=== PATIENT | male | born 1965 | race Caucasian/White ===

== ENCOUNTER 2019-01-22 20:40 | Inpatient (IN) | payer MEDICARE, OTHER ==
[~2019-01-22] VITALS: Ht 170.2 cm; Wt 160.0 kg
[~2019-01-22 20:40] MED LIST: ASPI-817 PO; BENA20TA4 PO; CARV12.579 PO; FURO-110 PO; GABA400C14 PO; HYDR-762 PO; HYDR25TA6 PO; INSU100V23 SC; LANT3I SC; METF500T24 PO; OXYC15TA PO; POTA20TA8 PO; SIMV40TA3 PO
--- NOTE | 2019-01-22 21:26 | ERD ---
ER Documentation Chief Complaint Chief Complaint R lower leg pain moving up R leg X 1 day HPI Is a 53-year-old male, with a history of COPD, history of CHF, history of diabetes who presents with right foot pain. The patient reports that he has had this pain for a long time, however last week he got worse, and his primary care doctor started him on Cipro for foot ulcer over his calcaneus. He has not improved, and is noted purulent drainage. He has not had a fever. Additionally, he is not on home oxygen, but is not CPAP and has noted that his O2 sats have been lower lately, he presents today with an O2 sat of 89%, he did not endorse any significant shortness of breath. There are no alleviating or aggravating factors. ROS All systems reviewed and are negative except as per history of present illness. Medications Home Meds Reported Medications Carvedilol* (Carvedilol*) 12.5 Mg Tablet, 12.5 MG PO BID, TAB 11/16/14 Simvastatin (Simvastatin) 40 Mg Tablet, 40 MG PO HS, TAB 11/16/14 Insulin Regular, Human* (Novolin R*) 100 U/Ml Vial, 0 SC SLIDING SCALE ACHS, VIAL 11/16/14 Insulin Glargine* (Lantus*) 100 Unit/Ml Soln, 1 UNIT SC HS, EA 11/16/14 Aspirin* (Aspirin* EC) 81 Mg Tablet.dr, 81 MG PO DAILY, TAB 11/16/14 Furosemide* (Lasix*) 20 Mg Tablet, 20 MG PO DAILY, TAB 11/16/14 Benazepril Hcl* (Benazepril Hcl*) 20 Mg Tablet, 20 MG PO DAILY, TAB 11/16/14 Gabapentin* (Gabapentin*) 400 Mg Capsule, 400 MG PO TID, CAP 11/16/14 Metformin Hcl* (Metformin Hcl*) 500 Mg Tablet, 500 MG PO WITH BREAKFAST, TAB 11/16/14 Oxycodone Hcl* (IR) (Oxycodone Hcl*) 15 Mg Tablet, 15 MG PO Q4H PRN for PAIN, TAB 11/16/14 Hydrocodone Bit-Acetaminophen* (Downs*) 10-325 Mg Tablet, 1 TAB PO Q4H PRN for PAIN, TAB 11/16/14 Hydrochlorothiazide* (Hydrochlorothiazide*) 25 Mg Tab, 25 MG PO DAILY, TAB 11/16/14 Potassium Chloride* (Klor-Con*) 10 Meq Tabsr, 10 MEQ PO DAILY, TAB.SA 11/16/14 Allergies Allergies: Coded Allergies: No Known Allergies (Verified Allergy, Unknown, 07/02/17) PMhx/Soc History of Surgery: Yes (HAD KNEE FLUSHED OUT, EAR SX) Anesthesia Reaction: No Hx Neurological Disorder: No Hx Respiratory Disorders: No Hx Cardiac Disorders: Yes (HTN, MINOR HEART FAILURE) Hx Psychiatric Problems: No Hx Miscellaneous Medical Probl: Yes (HIGH CHOLESTEROL) Hx Alcohol Use: No Hx Substance Use: No Hx Tobacco Use: No Smoking Status: Never smoker Physical Exam Vitals Vital Signs Date Temp Pulse Resp B/P (MAP) Pulse Ox O2 O2 Flow FiO2 Time Delivery Rate 01/22/19 76 20 96 Nasal 3.0 23:40 Cannula 01/22/19 3.0 23:40 01/22/19 Nasal 3 22:51 Cannula 01/22/19 97.3 84 22 90/52 (65) 90 21:14 01/22/19 97.3 89 24 89/53 (65) 88 20:49 Physical Exam Const: Alert awake, well-nourished Head: Atraumatic Eyes: Normal Conjunctiva ENT: Normal External Ears, Nose and Mouth. Neck: Full range of motion. No meningismus. Resp: There is bilateral expiratory wheezing, there is no rhonchi Cardio: Regular rate and rhythm, no murmurs Abd: Soft, non tender, non distended. Normal bowel sounds Skin: No petechiae or rashes Back: No midline or flank tenderness Ext: No cyanosis, there is bilateral 1+ pitting edema, there is at least a stage II foot ulcer over his calcaneal area, there is no crepitus Neur: Awake and alert Psych: Normal Mood and Affect Result Diagram: 01/22/19 2215 01/22/19 2216 Results 24 hrs Laboratory Tests Test 01/22/19 21:27 01/22/19 22:15 01/22/19 22:16 Blood Gas Specimen Source Blood arterial Arterial Blood Date 01/22/2019 10:00:02 PM Drawn Arterial Blood Gas VENOUS LINE Puncture Site Jose Antonio Test N/A Venous Blood pH 7.381 Venous Blood pCO2 47.8 mmHG (Temp Corrected) Venous Blood pO2 42.3 mmHG (Temp Corrected) Venous Blood HCO3 27.7 mmol/L Venous Blood Oxygen 78.6 mmHG Saturation Venous Blood Base Excess 2.4 mmol/L Venous Blood Total 6.4 g/dl Hemoglobin Venous Blood 76.2 % Oxyhemoglobin Venous Blood 0.5 % Methemoglobin Blood Gas A-a O2 137.2 mmHg Differential Carboxyhemoglobin 2.5 % Blood Gas Temperature 37.0 C Blood Gas Modality NASAL CANNULA FiO2 33.0 % Blood Gas Critical Value Vidhi MILLER MD Read Back Blood Gas Notified Whom Blood Gas Notified Time 01/22/2019 10:10:41 PM White Blood Count 8.4 10^3/ul Red Blood Count 3.93 10^6/ul Hemoglobin 11.0 g/dl Hematocrit 35.5 % Mean Corpuscular Volume 90.3 fl Mean Corpuscular 28.0 pg Hemoglobin Mean Corpuscular 31.0 g/dl Hemoglobin Concent Red Cell Distribution 16.3 % Width Platelet Count 172 10^3/UL Mean Platelet Volume 12.4 fl Immature Granulocytes % 0.400 % Neutrophils % 63.5 % Lymphocytes % 23.6 % Monocytes % 10.5 % Eosinophils % 1.4 % Basophils % 0.6 % Nucleated Red Blood Cells 0.0 /100WBC % Immature Granulocytes # 0.030 10^3/ul Neutrophils # 5.4 10^3/ul Lymphocytes # 2.0 10^3/ul Monocytes # 0.9 10^3/ul Eosinophils # 0.1 10^3/ul Basophils # 0.1 10^3/ul Nucleated Red Blood Cells 0.0 10^3/ul # Erythrocyte Sedimentation 63 mm/Hr Rate Prothrombin Time 14.3 Sec Prothrombin Time Ratio 1.1 INR International 1.10 Normalized Ratio Activated 34.3 Sec Partial Thromboplast Time Sodium Level 139 mmol/L Potassium Level 4.3 mmol/L Chloride Level 98 mmol/L Carbon Dioxide Level 35 mmol/L Anion Gap 6 Blood Urea Nitrogen 30 mg/dl Creatinine 1.71 mg/dl Est Glomerular Filtrat 42 mL/min Rate mL/min Glucose Level 189 mg/dl Lactic Acid Level 3.2 mmol/L Calcium Level 8.4 mg/dl Total Bilirubin 0.4 mg/dl Direct Bilirubin 0.00 mg/dl Indirect Bilirubin 0.4 mg/dl Aspartate Amino 35 IU/L Transf (AST/SGOT) Alanine 20 IU/L Aminotransferase (ALT/SGP T) Alkaline Phosphatase 79 IU/L Troponin I < 0.012 ng/ml C-Reactive Protein 1.8 mg/dl B-Type Natriuretic 232 PG/ML Peptide Total Protein 7.6 g/dl Albumin 3.6 g/dl Globulin 4.00 g/dl Albumin/Globulin Ratio 0.90 Current Medications Medications Dose Sig/Dc Start Time Status Last (Trade) Ordered Route PRN Stop Time Admin Dose Reason Admin Sodium 1,000 ml BOLUS OVER 2 01/22/19 DC 01/22/19 Chloride HOURS STAT 21:27 22:20 (NS) IV* 01/22/19 21:30 Vancomycin 250 ml @ ONCE STAT 01/22/19 DC 01/22/19 HCl 125 mls/hr IVPB 21:27 22:55 01/22/19 23:26 Piperacillin 100 ml @ ONCE STAT 01/22/19 DC 01/22/19 Sod/ 200 mls/hr IVPB 21:27 22:20 Tazobactam 01/22/19 21:56 Sod Albuterol 5 mg ONCE STAT 01/22/19 DC 01/22/19 (Proventil INH 21:27 21:27 0.083% (Neb)) 01/22/19 21:31 Ipratropium 1.5 mg ONCE STAT 01/22/19 DC 01/22/19 [place] INH 21:27 21:27 (Atrovent 01/22/19 21:31 0.02% (Neb)) 125 mg ONCE STAT 01/22/19 DC 01/22/19 Methylprednis IV 21:27 22:20 olone Sodium 01/22/19 21:31 Succinate (Solu-Medrol) 2 tab ONCE ONCE 01/22/19 DC 01/22/19 Acetaminophen PO 23:00 22:55 / 01/22/19 23:01 Hydrocodone Bitart (Downs (5/325)) Sodium 1,000 ml @ Q10H IV 01/22/19 UNV Chloride 100 mls/hr 23:49 IV Flush 3 ml PER 01/23/19 UNV (NS 3 ml) PROTOCOL IV 00:00 Ondansetron 4 mg Q6H PRN 01/23/19 UNV HCl (Zofran IV 00:00 Inj) NAUSEA/VOMITI NG 650 mg Q6H PRN 01/23/19 UNV Acetaminophen PO .PAIN 1-3 00:00 (Tylenol OR TEMP Tab) Heparin 5,000 unit Q12 SC 01/23/19 UNV Sodium 09:00 (Porcine) (Heparin (5000 Units/1ml)) Albuterol/ 3 ml Q2H RESP 01/23/19 UNV Ipratropium THERAPY PRN 00:00 (Duoneb) HHN SHORTNESS OF BREATH Discontinue ONCE ONCE 01/23/19 UNV Miscellaneous current oral XX 00:00 sulfonylur... 01/23/19 00:01 Information (* Miscellaneous Pharmacy Order) Diagnostic 1 ea 02 XX 01/23/19 UNV Test (Pha) 02:00 (Accu-Chek) Insulin 15 units DAILY@0800 01/23/19 UNV Glargine SC 08:00 (Lantus) ONCE ONCE 01/23/19 UNV Miscellaneous HYPOGLYCEMIA XX 00:00 PROTOCOL 01/23/19 00:01 Information w... (* Miscellaneous Pharmacy Order) Insulin NOVOLOG WITH MEALS 01/23/19 UNV Aspart *MILD* BEDTIME SC 08:00 (Novolog ALGORITHM Insulin Pen) Discontinue ONCE ONCE 01/23/19 UNV Miscellaneous all previ... XX 00:00 01/23/19 00:01 Information (* Miscellaneous Pharmacy Order) Aspirin 81 mg DAILY PO 01/23/19 UNV (Halfprin) 09:00 Gabapentin 400 mg TID PO 01/23/19 UNV (Neurontin) 09:00 40 mg HS PO 01/23/19 UNV Miscellaneous 21:00 Information Oxycodone 15 mg Q4H PRN 01/23/19 UNV HCl PO PAIN 00:00 (Roxicodone) Procedures/MDM 53-year-old male who presents for evaluation of a diabetic foot ulcer. My primary concern is that he has infection of his ulcer, which could be developing into osteomyelitis. He was treated with broad-spectrum antibiotics, cardiomegaly with possible CHF was noted on chest x-ray, thus he did not receive the full 30 cc/kg of fluids, additionally I noted his hypoxia, he was given a breathing treatment. Will also be placed on CPAP for the evening. Sepsis Documentation: Patient's infectious symptoms have not stabilized and the patient is at risk of rapid decompensation. The patient will be admitted for careful hydration, antibiotic therapy, and infectious source control. SEVERE SEPSIS CRITERIA: Infectious source: Diabetic ulcer, possible osteomyelitis End organ damage indicated by: Lactate 3.2 SEPSIS MANAGEMENT Time of recognition of sepsis: [Upon arrival]. Time of recognition of severe sepsis: 2215 Time of recognition of septic shock: [No septic shock at this time]. 3 HOUR BUNDLE Blood cultures x 2 before broad-spectrum antibiotics: [Yes] 30 ml/kg NS bolus [Completed] Initial lactate 3.2 Repeat lactate pending SEPTIC SHOCK ASSESSMENT: [No evidence of septic shock CRITICAL CARE Critical care time [35] minutes Emergent fluid management while maintaining close respiratory support. Provision of immediate and broad-spectrum antibiotic therapy. Simultaneous assessment for possible sources in order to direct targeted therapy. Consideration for invasive and chemical support to prevent cardiopulmonary collapse. Critical care time is independent of procedures performed. EKG: Rate/Rhythm: Normal Sinus Rhythm QRS, ST, T-waves: No changes consistent w/ acute ischemia Impression: No evidence of ischemia or arrhythmia Departure Diagnosis: Primary Impression: Diabetic ulcer of foot associated with diabetes mellitus due to underlying condition, limited to breakdown of skin Diabetic foot ulcer location: unspecified part of foot Laterality: unspecified laterality Qualified Codes: E08.621 - Diabetes mellitus due to underlying condition with foot ulcer; L97.501 - Non-pressure chronic ulcer of other part of unspecified foot limited to breakdown of skin Additional Impressions: Sepsis Sepsis type: sepsis due to unspecified organism Qualified Codes: A41.9 - Sepsis, unspecified organism COPD (chronic obstructive pulmonary disease) COPD type: chronic bronchitis Chronic bronchitis type: unspecified Qualified Codes: J42 - Unspecified chronic bronchitis Hypoxia Condition: ANURAG Paul MD Jan 22, 2019 21:26
[2019-01-22] MEDS ORDERED: VANCOMYCIN 1 GM (PMX) 250 ML IVPB STA (21:27)
[2019-01-22] MEDS ORDERED: PIPER-TAZO 3.375 GM IV (PMX) 100 ML IVPB STA (21:27)
[2019-01-22] MEDS ORDERED: METHYLPREDNISOLONE 125 MG INJ IV STA (21:27)
[2019-01-22] MEDS ORDERED: ALBUTEROL 0.083% (NEB) 2.5 MG/3 ML AMP INH STA (21:27)
[2019-01-22] MEDS ORDERED: IPRATROPIUM (NEB) 0.5 MG/2.5 ML AMP INH STA (21:27)
[2019-01-22] MEDS ORDERED: SODIUM CHLORIDE 0.9% 1L BAG IV* STA (21:27)
[2019-01-22] MEDS ORDERED: HYDROCODONE/APAP (5/325) TAB PO ONE (23:00)
[2019-01-22] MEDS ORDERED: GLUCAGON 1 MG INJ IM PRN (23:45)
[2019-01-22] MEDS ORDERED: GLUCOSE GEL 15 GRAM TUBE BUCCAL PRN (23:45)
[2019-01-22] MEDS ORDERED: GLUCOSE GEL 15 GRAM TUBE PO PRN ×2 (23:45)
[2019-01-22] MEDS ORDERED: DEXTROSE 50% 50 ML SYRINGE IV PRN ×2 (23:45)
--- NOTE | 2019-01-22 23:53 | HP ---
Date/Time of Note Date/Time of Note DATE: 01/22/19 TIME: 23:53 Assessment/Plan VTE Prophylaxis Pharmacological prophylaxis: heparin Lines/Catheters IV Catheter Type (from Nrsg): Saline Lock Assessment/Plan Assessment/Plan 1. Chronic left lower extremity ulcer/wound -IV antibiotic -Wound care consult -Wound culture -Podiatry and ID consult 2. GRACE -Supplemental oxygen, bronchodilators, as needed BiPAP/CPAP -Check ABG. Patient appears somehow sleepy 3. Type 2 diabetes: Insulin while in-house 4. Morbid obesity: Weight reduction advised Result Diagram: 01/22/19 2215 01/22/19 2216 Results 24hrs Laboratory Tests Test 01/22/19 21:27 01/22/19 22:15 01/22/19 22:16 Blood Gas Specimen Source Blood arterial Arterial Blood Date Drawn 01/22/2019 10:00:02 PM Arterial Blood Gas VENOUS LINE Puncture Site Jose Antonio Test N/A Venous Blood pH 7.381 Venous Blood pCO2 47.8 H (Temp Corrected) Venous Blood pO2 42.3 H (Temp Corrected) Venous Blood HCO3 27.7 Venous Blood Oxygen 78.6 H Saturation Venous Blood Base Excess 2.4 Venous Blood Total 6.4 Hemoglobin Venous Blood Oxyhemoglobin 76.2 Venous Blood Methemoglobin 0.5 Blood Gas A-a O2 137.2 Differential Carboxyhemoglobin 2.5 Blood Gas Temperature 37.0 Blood Gas Modality NASAL CANNULA FiO2 33.0 Blood Gas Critical Value Vidhi MILLER MD Read Back Blood Gas Notified Whom MR Blood Gas Notified Time 01/22/2019 10:10:41 PM White Blood Count 8.4 # Red Blood Count 3.93 L Hemoglobin 11.0 L Hematocrit 35.5 L Mean Corpuscular Volume 90.3 Mean Corpuscular Hemoglobin 28.0 L Mean Corpuscular 31.0 L Hemoglobin Concent Red Cell Distribution Width 16.3 H Platelet Count 172 Mean Platelet Volume 12.4 #H Immature Granulocytes % 0.400 Neutrophils % 63.5 Lymphocytes % 23.6 Monocytes % 10.5 Eosinophils % 1.4 Basophils % 0.6 Nucleated Red Blood Cells % 0.0 Immature Granulocytes # 0.030 Neutrophils # 5.4 Lymphocytes # 2.0 Monocytes # 0.9 Eosinophils # 0.1 Basophils # 0.1 Nucleated Red Blood Cells # 0.0 Erythrocyte Sedimentation 63 H Rate Prothrombin Time 14.3 Prothrombin Time Ratio 1.1 INR International 1.10 Normalized Ratio Activated 34.3 Partial Thromboplast Time Sodium Level 139 Potassium Level 4.3 Chloride Level 98 Carbon Dioxide Level 35 H Anion Gap 6 Blood Urea Nitrogen 30 H Creatinine 1.71 H Est Glomerular Filtrat 42 L Rate mL/min Glucose Level 189 Lactic Acid Level 3.2 *H Calcium Level 8.4 Total Bilirubin 0.4 Direct Bilirubin 0.00 Indirect Bilirubin 0.4 Aspartate Amino 35 Transf (AST/SGOT) Alanine 20 Aminotransferase (ALT/SGPT) Alkaline Phosphatase 79 Troponin I < 0.012 C-Reactive Protein 1.8 H B-Type Natriuretic Peptide 232 H Total Protein 7.6 Albumin 3.6 Globulin 4.00 H Albumin/Globulin Ratio 0.90 HPI/ROS Admit Date/Time Admit Date/Time Hx of Present Illness This is a 53-year-old morbidly obese male with a history of peripheral vascular disease, chronic lower extremity ulcer/wound, GRACE, type 2 diabetes who presents the ER complaining of worsening left lower extremity ulcer/wound. Patient follows up at [facility]. Last time he was seen by Dr. Arora he was in October of this year. He said he noted some oozing from the ulcer and also complains of pain and swelling. He said he has been dealing with this for at least 2 years. In the ER x-ray of the left lower extremity without evidence of osteomyelitis (notes that the radiologist under impression mistakingly mentioned evidence of osteomyelitis.. See body of the report) PMH/Family/Social Past Medical History Medical History: other (See HPI) Coded Allergies: No Known Allergies (Verified Allergy, Unknown, 07/02/17) Past Surgical History Past Surgical Hx: other (See HPI) Family History Significant Family History: no pertinent family hx Social History Alcohol Use: none Smoking Status: Never smoker Drug Use: none Exam/Review of Systems Vital Signs Vitals Vital Signs Date Temp Pulse Resp B/P (MAP) Pulse Ox O2 O2 Flow FiO2 Time Delivery Rate 01/22/19 76 20 96 Nasal 3.0 23:40 Cannula 01/22/19 97.3 90/52 (65) 21:14 Exam Constitutional: other (Morbidly obese male lying in bed. Somehow sleepy but fully arousable and answering question appropriately) Head: normocephalic, atraumatic Eyes: PERRL Respiratory: clear to auscultation, normal air movement Cardiovascular: regular rate and rhythm, nl pulses Gastrointestinal: soft Extremities: other (Left lower extremity ulcer/wound. Lower extremity venous stasis change) AURELIA JANG MD Jan 22, 2019 23:53
[2019-01-23] VITALS (15 sets, daily range): BP systolic 105–148; BP diastolic 56–71; PULSE 61–87; RESP 18–22; Ht 170.2 cm; Wt 160.0 kg
[2019-01-23] MEDS ORDERED: ACETAMINOPHEN 325 MG TAB PO PRN
[2019-01-23] MEDS ORDERED: ONDANSETRON 4 MG INJ IV PRN
[2019-01-23] MEDS ORDERED: NACL 0.9% 3 ML SYG IV SCH
[2019-01-23] MEDS: oxyCODONE 15 MG TAB PO PRN ×2 (01:08→17:58)
[2019-01-23] MEDS: SOD CHLORIDE 0.9% 1,000 ML IV SCH ×3 (01:09→19:49)
[2019-01-23] MEDS: ACCU-CHEK XX SCH (02:00)
[2019-01-23] MEDS: ALBUTEROL/IPRATROPIUM (NEB) 3 ML AMP HHN PRN ×2 (03:26→09:00)
[2019-01-23] MEDS ORDERED: VANCOMYCIN IV PER PHARMACY XX SCH (07:00)
[2019-01-23] MEDS ORDERED: INSULIN GLARGINE [LANTus] (100 UNITS/ML) SYG SC SCH ×2 (08:00→22:00)
[2019-01-23] MEDS ORDERED: VANCOMYCIN HCL 2 GM in SOD CHLORIDE 0.9% 500 ML IVPB SCH (09:00)
[2019-01-23] MEDS: INSULIN ASPART [NOVOLOG] 3 ML PEN SC SCH ×4 (09:16→21:28)
[2019-01-23] MEDS: HEPARIN 5,000 UNIT/1 ML VIAL SC SCH ×2 (09:17→21:28)
[2019-01-23] MEDS: GABAPENTIN 400 MG CAP PO SCH ×3 (09:17→21:00)
[2019-01-23] MEDS: ASPIRIN (EC) 81 MG TAB PO SCH (09:17)
[2019-01-23] MEDS: CEFEPIME 1GM/50 ML (PMX) 50 ML IVPB SCH ×2 (09:17→21:18)
[2019-01-23] MEDS: MAGNESIUM OXIDE 400 MG TAB PO SCH ×2 (14:18→21:17)
[2019-01-23] MEDS ORDERED: BUME2TAB2 PO (15:22)
[2019-01-23] MEDS ORDERED: OXYC80TA39 PO (15:24)
[2019-01-23] MEDS ORDERED: SPIR25TA PO (15:24)
--- NOTE | 2019-01-23 18:36 | PN ---
Date/Time of Note Date/Time of Note DATE: 01/23/19 TIME: 18:30 Assessment/Plan VTE Prophylaxis Risk score (from Nsg)>0 risk: 2 Pharmacological prophylaxis: heparin Lines/Catheters IV Catheter Type (from Nrsg): Peripheral IV Urinary Cath still in place: No Assessment/Plan Hospital Course 1. 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 Uche Beckford at [facility], consultation obtained 2. GRACE -Supplemental oxygen, bronchodilators, as needed BiPAP/CPAP -Check ABG. Patient appears somehow sleepy 3. Type 2 diabetes Sugars are currently elevated Have increased basal and have added mealtime insulin A1c 9.3 4. Morbid obesity: Weight reduction advised Prophylaxis: Heparin Result Diagram: 01/23/1961701/23/19617 Results 24hrs Laboratory Tests Test 01/22/19 21:27 01/22/19 22:15 01/22/19 22:16 01/23/19 00:01 Blood Gas Blood arterial Specimen Source Arterial Blood 01/22/2019 10:00 Date Drawn :02 PM Arterial Blood VENOUS LINE Gas Puncture Site Jose Antonio Test N/A Venous Blood pH 7.381 Venous Blood 47.8 H pCO2 (Temp Corrected) Venous Blood pO2 42.3 H (Temp Corrected) Venous Blood 27.7 HCO3 Venous Blood 78.6 H Oxygen Saturation Venous Blood 2.4 Base Excess Venous Blood 6.4 Total Hemoglobin Venous Blood 76.2 Oxyhemoglobin Venous Blood 0.5 Methemoglobin Blood Gas A-a O2 137.2 Differential Carboxyhemoglobi 2.5 n Blood Gas 37.0 Temperature Blood Gas NASAL CANNULA Modality FiO2 33.0 Blood Gas Vidhi MILLER MD Critical Value Read Back Blood Gas MR Notified Whom Blood Gas 01/22/2019 10:10 Notified Time :41 PM White Blood 8.4 # Count Red Blood Count 3.93 L Hemoglobin 11.0 L Hematocrit 35.5 L Mean Corpuscular 90.3 Volume Mean Corpuscular 28.0 L Hemoglobin Mean Corpuscular 31.0 L Hemoglobin Nancy nt Red Cell 16.3 H Distribution Width Platelet Count 172 Mean Platelet 12.4 #H Volume Immature 0.400 Granulocytes % Neutrophils % 63.5 Lymphocytes % 23.6 Monocytes % 10.5 Eosinophils % 1.4 Basophils % 0.6 Nucleated Red 0.0 Blood Cells % Immature 0.030 Granulocytes # Neutrophils # 5.4 Lymphocytes # 2.0 Monocytes # 0.9 Eosinophils # 0.1 Basophils # 0.1 Nucleated Red 0.0 Blood Cells # Erythrocyte 63 H Sedimentation Rate Prothrombin Time 14.3 Prothrombin Time 1.1 Ratio INR 1.10 International Normalized Ratio Activated 34.3 Partial Thrombop last Time Sodium Level 139 Potassium Level 4.3 Chloride Level 98 Carbon Dioxide 35 H Level Anion Gap 6 Blood Urea 30 H Nitrogen Creatinine 1.71 H Est Glomerular 42 L Filtrat Rate mL/min Glucose Level 189 Lactic Acid 3.2 *H 1.5 Level Calcium Level 8.4 Total Bilirubin 0.4 Direct Bilirubin 0.00 Indirect 0.4 Bilirubin Aspartate Amino 35 Transf (AST/SGOT ) Alanine 20 Aminotransferase (ALT/SGPT) Alkaline 79 Phosphatase Troponin I < 0.012 C-Reactive 1.8 H Protein B-Type 232 H Natriuretic Peptide Total Protein 7.6 Albumin 3.6 Globulin 4.00 H Albumin/Globulin 0.90 Ratio Test 01/23/19 01:02 01/23/19 01:14 01/23/19 02:25 01/23/19 06:18 Lactic Acid 1.6 Level Bedside Glucose 182 Blood Gas Blood arterial Specimen Source Arterial Blood 01/23/2019 2:36: Date Drawn 46 AM Arterial Blood 7.293 *L pH (Temp corrected) Arterial Blood 77.0 H pCO2 (Temp correct) Arterial Blood 80.4 pO2 (Temp corrected) Arterial Blood 36.4 H HCO3 Arterial Blood 7.3 H Base Excess Arterial Blood 94.1 L Oxygen Saturatio n Jose Antonio Test ACCEPTAB Arterial Blood Left Radial Gas Puncture Site Arterial 2.2 Blood Carboxyhem oglobin Arterial Blood 0.2 Methemoglobin Blood Gas A-a O2 21.1 Differential Oxyhemoglobin 91.8 L Percent Blood Gas 37.0 Temperature Blood Gas NASAL CANNULA Modality FiO2 27.0 Blood Gas Bindu Do Critical Value Read Back Blood Gas r vinay Notified Whom Blood Gas 01/23/2019 2:49: Notified Time 33 AM White Blood 9.1 Count Red Blood Count 4.27 L Hemoglobin 11.8 L Hematocrit 38.1 L Mean Corpuscular 89.2 Volume Mean Corpuscular 27.6 L Hemoglobin Mean Corpuscular 31.0 L Hemoglobin Nancy nt Red Cell 16.4 H Distribution Width Platelet Count 179 Mean Platelet 12.6 H Volume Immature 0.200 Granulocytes % Neutrophils % 87.5 H Lymphocytes % 11.4 L Monocytes % 0.7 Eosinophils % 0.0 Basophils % 0.2 Nucleated Red 0.0 Blood Cells % Immature 0.020 Granulocytes # Neutrophils # 8.0 H Lymphocytes # 1.0 Monocytes # 0.1 L Eosinophils # 0.0 Basophils # 0.0 Nucleated Red 0.0 Blood Cells # Sodium Level 139 Potassium Level 5.4 H Chloride Level 99 Carbon Dioxide 33 H Level Anion Gap 7 Blood Urea 34 H Nitrogen Creatinine 1.77 H Est Glomerular 40 L Filtrat Rate mL/min Glucose Level 257 H Hemoglobin A1c 9.3 H Calcium Level 8.3 L Magnesium Level 1.6 L Total Bilirubin 0.4 Direct Bilirubin 0.00 Indirect 0.4 Bilirubin Aspartate Amino 32 Transf (AST/SGOT ) Alanine 19 Aminotransferase (ALT/SGPT) Alkaline 97 Phosphatase Total Protein 8.0 Albumin 3.7 Globulin 4.30 H Albumin/Globulin 0.86 Ratio Triglycerides 47 Level Cholesterol 126 Level LDL Cholesterol, 59 Calculated HDL Cholesterol 58 Cholesterol/HDL 2.1 Ratio Thyroid 0.356 L Stimulating Hormone (TSH) Test 01/23/19 07:00 01/23/19 08:14 01/23/19 09:13 01/23/19 12:02 Blood Gas Blood arterial Specimen Source Arterial Blood 01/23/2019 8:00: Date Drawn 28 AM Arterial Blood 7.298 *L pH (Temp corrected) Arterial Blood 70.5 H pCO2 (Temp correct) Arterial Blood 33.8 H HCO3 Arterial Blood 5.2 H Base Excess Arterial Blood 95.7 Oxygen Saturatio n Jose Antonio Test ACCEPTAB Arterial Blood Left Radial Gas Puncture Site Arterial 1.7 Blood Carboxyhem oglobin Arterial Blood 0.3 Methemoglobin Oxyhemoglobin 93.8 Percent Blood Gas 37.0 Temperature Blood Gas 16.0 Respiration Rate Blood Gas Actual 20 Respiration Rate Blood Gas MASK - BIPAP Modality FiO2 30.0 Blood Gas 10 Pressure Support Blood Gas 15/5 IPAP/EPAP Ratio Blood Gas EBROSEN R.N. Critical Value Read Back Blood Gas MDA Notified Whom Blood Gas 01/23/2019 8:08: Notified Time 41 AM Bedside Glucose 292 H 264 H 237 H Test 01/23/19 17:24 Bedside Glucose 336 H Subjective 24 Hr Interval Summary Musculoskeletal: bone/joint pain Exam/Review of Systems Exam Vitals Vital Signs Date Temp Pulse Resp B/P (MAP) Pulse Ox O2 O2 Flow FiO2 Time Delivery Rate 01/23/19 Nasal 2.0 16:48 Cannula 01/23/19 98.0 22 148/71 96 16:20 (96) 01/23/19 83 16:00 01/23/19 30 13:30 Intake and Output 01/22/19 01/22/19 01/23/19 1515:00 23:00 07:00 IntakeIntake Total 850 ml BalanceBalance 850 ml Constitutional: alert, oriented Respiratory: clear to auscultation Cardiovascular: regular rate and rhythm Gastrointestinal: soft; No distended Musculoskeletal: No nl extremities to inspection Results Results 24hrs Laboratory Tests Test 01/22/19 21:27 01/22/19 22:15 01/22/19 22:16 01/23/19 00:01 Blood Gas Blood arterial Specimen Source Arterial Blood 01/22/2019 10:00 Date Drawn :02 PM Arterial Blood VENOUS LINE Gas Puncture Site Jose Antonio Test N/A Venous Blood pH 7.381 Venous Blood 47.8 H pCO2 (Temp Corrected) Venous Blood pO2 42.3 H (Temp Corrected) Venous Blood 27.7 HCO3 Venous Blood 78.6 H Oxygen Saturation Venous Blood 2.4 Base Excess Venous Blood 6.4 Total Hemoglobin Venous Blood 76.2 Oxyhemoglobin Venous Blood 0.5 Methemoglobin Blood Gas A-a O2 137.2 Differential Carboxyhemoglobi 2.5 n Blood Gas 37.0 Temperature Blood Gas NASAL CANNULA Modality FiO2 33.0 Blood Gas Vidhi MILLER MD Critical Value Read Back Blood Gas MR Notified Whom Blood Gas 01/22/2019 10:10 Notified Time :41 PM White Blood 8.4 # Count Red Blood Count 3.93 L Hemoglobin 11.0 L Hematocrit 35.5 L Mean Corpuscular 90.3 Volume Mean Corpuscular 28.0 L Hemoglobin Mean Corpuscular 31.0 L Hemoglobin Nancy nt Red Cell 16.3 H Distribution Width Platelet Count 172 Mean Platelet 12.4 #H Volume Immature 0.400 Granulocytes % Neutrophils % 63.5 Lymphocytes % 23.6 Monocytes % 10.5 Eosinophils % 1.4 Basophils % 0.6 Nucleated Red 0.0 Blood Cells % Immature 0.030 Granulocytes # Neutrophils # 5.4 Lymphocytes # 2.0 Monocytes # 0.9 Eosinophils # 0.1 Basophils # 0.1 Nucleated Red 0.0 Blood Cells # Erythrocyte 63 H Sedimentation Rate Prothrombin Time 14.3 Prothrombin Time 1.1 Ratio INR 1.10 International Normalized Ratio Activated 34.3 Partial Thrombop last Time Sodium Level 139 Potassium Level 4.3 Chloride Level 98 Carbon Dioxide 35 H Level Anion Gap 6 Blood Urea 30 H Nitrogen Creatinine 1.71 H Est Glomerular 42 L Filtrat Rate mL/min Glucose Level 189 Lactic Acid 3.2 *H 1.5 Level Calcium Level 8.4 Total Bilirubin 0.4 Direct Bilirubin 0.00 Indirect 0.4 Bilirubin Aspartate Amino 35 Transf (AST/SGOT ) Alanine 20 Aminotransferase (ALT/SGPT) Alkaline 79 Phosphatase Troponin I < 0.012 C-Reactive 1.8 H Protein B-Type 232 H Natriuretic Peptide Total Protein 7.6 Albumin 3.6 Globulin 4.00 H Albumin/Globulin 0.90 Ratio Test 01/23/19 01:02 01/23/19 01:14 01/23/19 02:25 01/23/19 06:18 Lactic Acid 1.6 Level Bedside Glucose 182 Blood Gas Blood arterial Specimen Source Arterial Blood 01/23/2019 2:36: Date Drawn 46 AM Arterial Blood 7.293 *L pH (Temp corrected) Arterial Blood 77.0 H pCO2 (Temp correct) Arterial Blood 80.4 pO2 (Temp corrected) Arterial Blood 36.4 H HCO3 Arterial Blood 7.3 H Base Excess Arterial Blood 94.1 L Oxygen Saturatio n Jose Antonio Test ACCEPTAB Arterial Blood Left Radial Gas Puncture Site Arterial 2.2 Blood Carboxyhem oglobin Arterial Blood 0.2 Methemoglobin Blood Gas A-a O2 21.1 Differential Oxyhemoglobin 91.8 L Percent Blood Gas 37.0 Temperature Blood Gas NASAL CANNULA Modality FiO2 27.0 Blood Gas Bindu Do Critical Value Read Back Blood Gas r vinay Notified Whom Blood Gas 01/23/2019 2:49: Notified Time 33 AM White Blood 9.1 Count Red Blood Count 4.27 L Hemoglobin 11.8 L Hematocrit 38.1 L Mean Corpuscular 89.2 Volume Mean Corpuscular 27.6 L Hemoglobin Mean Corpuscular 31.0 L Hemoglobin Nancy nt Red Cell 16.4 H Distribution Width Platelet Count 179 Mean Platelet 12.6 H Volume Immature 0.200 Granulocytes % Neutrophils % 87.5 H Lymphocytes % 11.4 L Monocytes % 0.7 Eosinophils % 0.0 Basophils % 0.2 Nucleated Red 0.0 Blood Cells % Immature 0.020 Granulocytes # Neutrophils # 8.0 H Lymphocytes # 1.0 Monocytes # 0.1 L Eosinophils # 0.0 Basophils # 0.0 Nucleated Red 0.0 Blood Cells # Sodium Level 139 Potassium Level 5.4 H Chloride Level 99 Carbon Dioxide 33 H Level Anion Gap 7 Blood Urea 34 H Nitrogen Creatinine 1.77 H Est Glomerular 40 L Filtrat Rate mL/min Glucose Level 257 H Hemoglobin A1c 9.3 H Calcium Level 8.3 L Magnesium Level 1.6 L Total Bilirubin 0.4 Direct Bilirubin 0.00 Indirect 0.4 Bilirubin Aspartate Amino 32 Transf (AST/SGOT ) Alanine 19 Aminotransferase (ALT/SGPT) Alkaline 97 Phosphatase Total Protein 8.0 Albumin 3.7 Globulin 4.30 H Albumin/Globulin 0.86 Ratio Triglycerides 47 Level Cholesterol 126 Level LDL Cholesterol, 59 Calculated HDL Cholesterol 58 Cholesterol/HDL 2.1 Ratio Thyroid 0.356 L Stimulating Hormone (TSH) Test 01/23/19 07:00 01/23/19 08:14 01/23/19 09:13 01/23/19 12:02 Blood Gas Blood arterial Specimen Source Arterial Blood 01/23/2019 8:00: Date Drawn 28 AM Arterial Blood 7.298 *L pH (Temp corrected) Arterial Blood 70.5 H pCO2 (Temp correct) Arterial Blood 33.8 H HCO3 Arterial Blood 5.2 H Base Excess Arterial Blood 95.7 Oxygen Saturatio n Jose Antonio Test ACCEPTAB Arterial Blood Left Radial Gas Puncture Site Arterial 1.7 Blood Carboxyhem oglobin Arterial Blood 0.3 Methemoglobin Oxyhemoglobin 93.8 Percent Blood Gas 37.0 Temperature Blood Gas 16.0 Respiration Rate Blood Gas Actual 20 Respiration Rate Blood Gas MASK - BIPAP Modality FiO2 30.0 Blood Gas 10 Pressure Support Blood Gas 15/5 IPAP/EPAP Ratio Blood Gas EBROSEN R.N. Critical Value Read Back Blood Gas MDA Notified Whom Blood Gas 01/23/2019 8:08: Notified Time 41 AM Bedside Glucose 292 H 264 H 237 H Test 01/23/19 17:24 Bedside Glucose 336 H Medications Medication Current Medications Sodium Chloride 1,000 ml @ 100 mls/hr Q10H IV Last administered on 01/23/19at 11:12; Admin Dose 100 MLS/HR; Start 01/22/19 at 23:49 IV Flush (NS 3 ml) 3 ml PER PROTOCOL IV ; Start 01/23/19 at 00:00 Ondansetron HCl (Zofran Inj) 4 mg Q6H PRN IV NAUSEA/VOMITING; Start 01/23/19 at 00:00 Acetaminophen (Tylenol Tab) 650 mg Q6H PRN PO .PAIN 1-3 OR TEMP; Start 01/23/19 at 00:00 Heparin Sodium (Porcine) (Heparin (5000 Units/1ml)) 5,000 unit Q12 SC Last administered on 01/23/19 09:17; Admin Dose 5,000 UNIT; Start 01/23/19 at 09:00 Albuterol/ Ipratropium (Duoneb) 3 ml Q2H RESP THERAPY PRN HHN SHORTNESS OF BREATH Last administered on 01/23/19at 09:00; Admin Dose 3 ML; Start 01/23/19 at 00:00 Diagnostic Test (Pha) (Accu-Chek) 1 ea 02 XX ; Start 01/23/19 at 02:00 Insulin Glargine (Lantus) 15 units DAILY@0800 SC Last administered on 01/23/19 09:15; Admin Dose 15 UNITS; Start 01/23/19 at 08:00 Insulin Aspart (Novolog Insulin Pen) NOVOLOG *MILD* ALGORITHM WITH MEALS BEDTIME SC Last administered on 01/23/19 17:31; Admin Dose 5 UNIT; Start 01/23/19 at 07:55 Aspirin (Halfprin) 81 mg DAILY PO Last administered on 01/23/19 09:17; Admin Dose 81 MG; Start 01/23/19 at 09:00 Gabapentin (Neurontin) 400 mg TID PO Last administered on 01/23/19 09:17; Admin Dose 400 MG; Start 01/23/19 at 09:00 Oxycodone HCl (Roxicodone) 15 mg Q4H PRN PO MODERATE TO SEVERE PAIN Last administered on 01/23/19at 17:58; Admin Dose 15 MG; Start 01/23/19 at 00:00 Miscellaneous Information 1 ea NOTE XX ; Start 01/22/19 at 23:45 Glucose (Glutose) 15 gm Q15M PRN PO DECREASED GLUCOSE; Start 01/22/19 at 23:45 Glucose (Glutose) 22.5 gm Q15M PRN PO DECREASED GLUCOSE; Start 01/22/19 at 23:45 Dextrose (D50w Syringe) 25 ml Q15M PRN IV DECREASED GLUCOSE; Start 01/22/19 at 23:45 Dextrose (D50w Syringe) 50 ml Q15M PRN IV DECREASED GLUCOSE; Start 01/22/19 at 23:45 Glucagon (Glucagen) 1 mg Q15M PRN IM DECREASED GLUCOSE; Start 01/22/19 at 23:45 Glucose (Glutose) 15 gm Q15M PRN BUCCAL DECREASED GLUCOSE; Start 01/22/19 at 23:45 Atorvastatin Calcium (Lipitor) 20 mg DAILY@21 PO ; Start 01/23/19 at 21:00 Vancomycin HCl (Vanco Iv Per Pharmacy) VANCOMYCIN PER PHARMACY PER PROTOCOL XX ; Start 01/23/19 at 07:00 Cefepime HCl 50 ml @ 100 mls/hr Q12 IVPB Last administered on 01/23/19at 09:17; Admin Dose 100 MLS/HR; Start 01/23/19 at 09:00 Vancomycin HCl 1.25 gm/Sodium Chloride 250 ml @ 83.333 mls/ hr Q24H IVPB ; Start 01/24/19 at 09:00 Magnesium Oxide (Mag-Ox 400) 400 mg BID PO Last administered on 01/23/19at 14:18; Admin Dose 400 MG; Start 01/23/19 at 13:30 DARLIN YOUNG Jan 23, 2019 18:36
--- NOTE | 2019-01-23 19:49 | CONS ---
Assessment/Plan Assessment/Plan Assessment/Plan (Daily) 53 yo male with chronic left heel ulcer -wound does not seem infected at this time -he did have wound cultures pending results, he would benefit from antibiotics pending wound cultures. -x-rays negative for OM -daily dressing of left heel while in patient with Mepitol AG. Strict non weight bearing left lower extremity in cam walker. -will order duplex ultrasound to rule out DVT. -will continue to follow. Thank you Dr. Muniz for allowing me to see this patient. Consultation Date/Type/Reason Admit Date/Time Reason for Consultation Patient is a pleasant 53 yo male seen by me regularly on outpatient basis for left heel chronic ulceration. Patient most recently had a posterior splint, and MWF home health dressing changes of left heel with home health. Patient is supposed to be non weight bearing left lower extremity. He was on PO Cipro for the past 2 weeks. He presented to ED for worsening pain and swelling of left lower extremity. He denies any fevers, chills, nausea or vomiting. Pain and swelling has improved since admission. He continues to have some left calf pain. Date/Time of Note DATE: 01/23/19 TIME: 19:41 Past Medical History Medical History: other (See HPI) Home Meds Reported Medications Spironolactone* (Aldactone*) 25 Mg Tablet, 25 MG PO DAILY, #30 TAB 01/23/19 Oxycodone Hcl* (Oxycontin*) 80 Mg Tab.er.12h, 80 MG PO Q12, TAB 01/23/19 Bumetanide* (Bumetanide*) 2 Mg Tablet, 2 MG PO DAILY, TAB 01/23/19 Carvedilol* (Carvedilol*) 12.5 Mg Tablet, 12.5 MG PO BID, TAB 11/16/14 Simvastatin (Simvastatin) 40 Mg Tablet, 40 MG PO HS, TAB 11/16/14 Insulin Regular, Human* (Novolin R*) 100 U/Ml Vial, 0 SC SLIDING SCALE ACHS, VIAL 11/16/14 Insulin Glargine* (Lantus*) 100 Unit/Ml Soln, 1 UNIT SC HS, EA 11/16/14 Aspirin* (Aspirin* EC) 81 Mg Tablet., 81 MG PO DAILY, TAB 11/16/14 Furosemide* (Lasix*) 20 Mg Tablet, 20 MG PO DAILY, TAB 11/16/14 Benazepril Hcl* (Benazepril Hcl*) 20 Mg Tablet, 20 MG PO DAILY, TAB 11/16/14 Gabapentin* (Gabapentin*) 400 Mg Capsule, 400 MG PO TID, CAP 11/16/14 Metformin Hcl* (Metformin Hcl*) 500 Mg Tablet, 500 MG PO WITH BREAKFAST, TAB 11/16/14 Oxycodone Hcl* (IR) (Oxycodone Hcl*) 15 Mg Tablet, 15 MG PO Q4H PRN for PAIN, TAB 11/16/14 Hydrocodone Bit-Acetaminophen* ([place]*) 10-325 Mg Tablet, 1 TAB PO Q4H PRN for PAIN, TAB 11/16/14 Hydrochlorothiazide* (Hydrochlorothiazide*) 25 Mg Tab, 25 MG PO DAILY, TAB 11/16/14 Potassium Chloride* (Klor-Con*) 10 Meq Tabsr, 10 MEQ PO DAILY, TAB.SA 11/16/14 Medications Current Medications Sodium Chloride 1,000 ml @ 100 mls/hr Q10H IV Last administered on 01/23/19at 11:12; Admin Dose 100 MLS/HR; Start 01/22/19 at 23:49 IV Flush (NS 3 ml) 3 ml PER PROTOCOL IV ; Start 01/23/19 at 00:00 Ondansetron HCl (Zofran Inj) 4 mg Q6H PRN IV NAUSEA/VOMITING; Start 01/23/19 at 00:00 Acetaminophen (Tylenol Tab) 650 mg Q6H PRN PO .PAIN 1-3 OR TEMP; Start 01/23/19 at 00:00 Heparin Sodium (Porcine) (Heparin (5000 Units/1ml)) 5,000 unit Q12 SC Last administered on 01/23/19at 09:17; Admin Dose 5,000 UNIT; Start 01/23/19 at 09:00 Albuterol/ Ipratropium (Duoneb) 3 ml Q2H RESP THERAPY PRN HHN SHORTNESS OF BREATH Last administered on 01/23/19at 09:00; Admin Dose 3 ML; Start 01/23/19 at 00:00 Diagnostic Test (Pha) (Accu-Chek) 1 ea 02 XX ; Start 01/23/19 at 02:00 Insulin Aspart (Novolog Insulin Pen) NOVOLOG *MILD* ALGORITHM WITH MEALS BEDTIME SC Last administered on 01/23/19at 17:31; Admin Dose 5 UNIT; Start at 07:55 Aspirin (Halfprin) 81 mg DAILY PO Last administered on 01/23/19at 09:17; Admin Dose 81 MG; Start 01/23/19 at 09:00 Gabapentin (Neurontin) 400 mg TID PO Last administered on 01/23/19at 09:17; Admin Dose 400 MG; Start 01/23/19 at 09:00 Oxycodone HCl (Roxicodone) 15 mg Q4H PRN PO MODERATE TO SEVERE PAIN Last administered on 01/23/19at 17:58; Admin Dose 15 MG; Start 01/23/19 at 00:00 Miscellaneous Information 1 ea NOTE XX ; Start 01/22/19 at 23:45 Glucose (Glutose) 15 gm Q15M PRN PO DECREASED GLUCOSE; Start 01/22/19 at 23:45 Glucose (Glutose) 22.5 gm Q15M PRN PO DECREASED GLUCOSE; Start 01/22/19 at 23:45 Dextrose (D50w Syringe) 25 ml Q15M PRN IV DECREASED GLUCOSE; Start 01/22/19 at 23:45 Dextrose (D50w Syringe) 50 ml Q15M PRN IV DECREASED GLUCOSE; Start 01/22/19 at 23:45 Glucagon (Glucagen) 1 mg Q15M PRN IM DECREASED GLUCOSE; Start 01/22/19 at 23:45 Glucose (Glutose) 15 gm Q15M PRN BUCCAL DECREASED GLUCOSE; Start 01/22/19 at 23:45 Atorvastatin Calcium (Lipitor) 20 mg DAILY@21 PO ; Start 01/23/19 at 21:00 Vancomycin HCl (Vanco Iv Per Pharmacy) VANCOMYCIN PER PHARMACY PER PROTOCOL XX ; Start 01/23/19 at 07:00 Cefepime HCl 50 ml @ 100 mls/hr Q12 IVPB Last administered on 01/23/19at 09:17; Admin Dose 100 MLS/HR; Start 01/23/19 at 09:00 Vancomycin HCl 1.25 gm/Sodium Chloride 250 ml @ 83.333 mls/ hr Q24H IVPB ; Start 01/24/19 at 09:00 Magnesium Oxide (Mag-Ox 400) 400 mg BID PO Last administered on 01/23/19at 14:18; Admin Dose 400 MG; Start 01/23/19 at 13:30 Insulin Glargine (Lantus) 30 units DAILY@0800 SC ; Start 01/24/19 at 08:00 Insulin Aspart (Novolog Insulin Pen) 10 unit WITH MEALS SC ; Start 01/24/19 at 07:55 Morphine Sulfate (morphine) 2 mg Q4H PRN IV SEVERE PAIN LEVEL 7-10; Start 01/23/19 at 19:00 Allergies: Coded Allergies: No Known Allergies (Verified Allergy, Unknown, 07/02/17) Past Surgical History Past Surgical Hx: other (See HPI) Social History Alcohol Use: none Smoking Status: Former smoker Drug Use: none Exam/Review of Systems Exam Vitals Vital Signs Date Temp Pulse Resp B/P (MAP) Pulse Ox O2 O2 Flow FiO2 Time Delivery Rate 01/23/19 Nasal 2.0 16:48 Cannula 01/23/19 98.0 22 148/71 96 16:20 (96) 01/23/19 83 16:00 01/23/19 30 13:30 Intake and Output 01/22/19 01/22/19 01/23/19 1414:59 22:59 06:59 IntakeIntake Total 350 ml BalanceBalance 350 ml Exam Lower lower extremity exam: Left heel wound noted with no deep probe or drainage. No maceration of the wound noted. No proximal streaking appreciated. Wound seems smaller compared to previous exams. Patient with left calf pain to palpation. Results Result Diagram: 01/23/1918 01/23/1918 Results 24hrs Laboratory Tests Test 01/22/19 21:27 01/22/19 22:15 01/22/19 22:16 01/23/19 00:01 Blood Gas Blood arterial Specimen Source Arterial Blood 01/22/2019 10:00 Date Drawn :02 PM Arterial Blood VENOUS LINE Gas Puncture Site Jose Antonio Test N/A Venous Blood pH 7.381 Venous Blood 47.8 H pCO2 (Temp Corrected) Venous Blood pO2 42.3 H (Temp Corrected) Venous Blood 27.7 HCO3 Venous Blood 78.6 H Oxygen Saturation Venous Blood 2.4 Base Excess Venous Blood 6.4 Total Hemoglobin Venous Blood 76.2 Oxyhemoglobin Venous Blood 0.5 Methemoglobin Blood Gas A-a O2 137.2 Differential Carboxyhemoglobi 2.5 n Blood Gas 37.0 Temperature Blood Gas NASAL CANNULA Modality FiO2 33.0 Blood Gas MILLER, D MD Critical Value Read Back Blood Gas MR Notified Whom Blood Gas 01/22/2019 10:10 Notified Time :41 PM White Blood 8.4 # Count Red Blood Count 3.93 L Hemoglobin 11.0 L Hematocrit 35.5 L Mean Corpuscular 90.3 Volume Mean Corpuscular 28.0 L Hemoglobin Mean Corpuscular 31.0 L Hemoglobin Nancy nt Red Cell 16.3 H Distribution Width Platelet Count 172 Mean Platelet 12.4 #H Volume Immature 0.400 Granulocytes % Neutrophils % 63.5 Lymphocytes % 23.6 Monocytes % 10.5 Eosinophils % 1.4 Basophils % 0.6 Nucleated Red 0.0 Blood Cells % Immature 0.030 Granulocytes # Neutrophils # 5.4 Lymphocytes # 2.0 Monocytes # 0.9 Eosinophils # 0.1 Basophils # 0.1 Nucleated Red 0.0 Blood Cells # Erythrocyte 63 H Sedimentation Rate Prothrombin Time 14.3 Prothrombin Time 1.1 Ratio INR 1.10 International Normalized Ratio Activated 34.3 Partial Thrombop last Time Sodium Level 139 Potassium Level 4.3 Chloride Level 98 Carbon Dioxide 35 H Level Anion Gap 6 Blood Urea 30 H Nitrogen Creatinine 1.71 H Est Glomerular 42 L Filtrat Rate mL/min Glucose Level 189 Lactic Acid 3.2 *H 1.5 Level Calcium Level 8.4 Total Bilirubin 0.4 Direct Bilirubin 0.00 Indirect 0.4 Bilirubin Aspartate Amino 35 Transf (AST/SGOT ) Alanine 20 Aminotransferase (ALT/SGPT) Alkaline 79 Phosphatase Troponin I < 0.012 C-Reactive 1.8 H Protein B-Type 232 H Natriuretic Peptide Total Protein 7.6 Albumin 3.6 Globulin 4.00 H Albumin/Globulin 0.90 Ratio Test 01/23/19 01:02 01/23/19 01:14 01/23/19 02:25 01/23/19 06:18 Lactic Acid 1.6 Level Bedside Glucose 182 Blood Gas Blood arterial Specimen Source Arterial Blood 01/23/2019 2:36: Date Drawn 46 AM Arterial Blood 7.293 *L pH (Temp corrected) Arterial Blood 77.0 H pCO2 (Temp correct) Arterial Blood 80.4 pO2 (Temp corrected) Arterial Blood 36.4 H HCO3 Arterial Blood 7.3 H Base Excess Arterial Blood 94.1 L Oxygen Saturatio n Jose Antonio Test ACCEPTAB Arterial Blood Left Radial Gas Puncture Site Arterial 2.2 Blood Carboxyhem oglobin Arterial Blood 0.2 Methemoglobin Blood Gas A-a O2 21.1 Differential Oxyhemoglobin 91.8 L Percent Blood Gas 37.0 Temperature Blood Gas NASAL CANNULA Modality FiO2 27.0 Blood Gas Ibndu Do Critical Value Read Back Blood Gas r vinay Notified Whom Blood Gas 01/23/2019 2:49: Notified Time 33 AM White Blood 9.1 Count Red Blood Count 4.27 L Hemoglobin 11.8 L Hematocrit 38.1 L Mean Corpuscular 89.2 Volume Mean Corpuscular 27.6 L Hemoglobin Mean Corpuscular 31.0 L Hemoglobin Nancy nt Red Cell 16.4 H Distribution Width Platelet Count 179 Mean Platelet 12.6 H Volume Immature 0.200 Granulocytes % Neutrophils % 87.5 H Lymphocytes % 11.4 L Monocytes % 0.7 Eosinophils % 0.0 Basophils % 0.2 Nucleated Red 0.0 Blood Cells % Immature 0.020 Granulocytes # Neutrophils # 8.0 H Lymphocytes # 1.0 Monocytes # 0.1 L Eosinophils # 0.0 Basophils # 0.0 Nucleated Red 0.0 Blood Cells # Sodium Level 139 Potassium Level 5.4 H Chloride Level 99 Carbon Dioxide 33 H Level Anion Gap 7 Blood Urea 34 H Nitrogen Creatinine 1.77 H Est Glomerular 40 L Filtrat Rate mL/min Glucose Level 257 H Hemoglobin A1c 9.3 H Calcium Level 8.3 L Magnesium Level 1.6 L Total Bilirubin 0.4 Direct Bilirubin 0.00 Indirect 0.4 Bilirubin Aspartate Amino 32 Transf (AST/SGOT ) Alanine 19 Aminotransferase (ALT/SGPT) Alkaline 97 Phosphatase Total Protein 8.0 Albumin 3.7 Globulin 4.30 H Albumin/Globulin 0.86 Ratio Triglycerides 47 Level Cholesterol 126 Level LDL Cholesterol, 59 Calculated HDL Cholesterol 58 Cholesterol/HDL 2.1 Ratio Thyroid 0.356 L Stimulating Hormone (TSH) Test 01/23/19 07:00 01/23/19 08:14 01/23/19 09:13 01/23/19 12:02 Blood Gas Blood arterial Specimen Source Arterial Blood 01/23/2019 8:00: Date Drawn 28 AM Arterial Blood 7.298 *L pH (Temp corrected) Arterial Blood 70.5 H pCO2 (Temp correct) Arterial Blood 33.8 H HCO3 Arterial Blood 5.2 H Base Excess Arterial Blood 95.7 Oxygen Saturatio n Jose Antonio Test ACCEPTAB Arterial Blood Left Radial Gas Puncture Site Arterial 1.7 Blood Carboxyhem oglobin Arterial Blood 0.3 Methemoglobin Oxyhemoglobin 93.8 Percent Blood Gas 37.0 Temperature Blood Gas 16.0 Respiration Rate Blood Gas Actual 20 Respiration Rate Blood Gas MASK - BIPAP Modality FiO2 30.0 Blood Gas 10 Pressure Support Blood Gas 15/5 IPAP/EPAP Ratio Blood Gas EBROSEN R.N. Critical Value Read Back Blood Gas MDA Notified Whom Blood Gas 01/23/2019 8:08: Notified Time 41 AM Bedside Glucose 292 H 264 H 237 H Test 01/23/19 17:24 Bedside Glucose 336 H Medications Medication Current Medications Sodium Chloride 1,000 ml @ 100 mls/hr Q10H IV Last administered on 01/23/19 11:12; Admin Dose 100 MLS/HR; Start 01/22/19 at 23:49 IV Flush (NS 3 ml) 3 ml PER PROTOCOL IV ; Start 01/23/19 at 00:00 Ondansetron HCl (Zofran Inj) 4 mg Q6H PRN IV NAUSEA/VOMITING; Start 01/23/19 at 00:00 Acetaminophen (Tylenol Tab) 650 mg Q6H PRN PO .PAIN 1-3 OR TEMP; Start 01/23/19 at 00:00 Heparin Sodium (Porcine) (Heparin (5000 Units/1ml)) 5,000 unit Q12 SC Last administered on 01/23/19 09:17; Admin Dose 5,000 UNIT; Start 01/23/19 at 09:00 Albuterol/ Ipratropium (Duoneb) 3 ml Q2H RESP THERAPY PRN HHN SHORTNESS OF BREATH Last administered on 01/23/19 09:00; Admin Dose 3 ML; Start 01/23/19 at 00:00 Diagnostic Test (Pha) (Accu-Chek) 1 ea 02 XX ; Start 01/23/19 at 02:00 Insulin Aspart (Novolog Insulin Pen) NOVOLOG *MILD* ALGORITHM WITH MEALS BEDTIME SC Last administered on 01/23/19 17:31; Admin Dose 5 UNIT; Start 01/23/19 at 07:55 Aspirin (Halfprin) 81 mg DAILY PO Last administered on 01/23/19 09:17; Admin Dose 81 MG; Start 01/23/19 at 09:00 Gabapentin (Neurontin) 400 mg TID PO Last administered on 3/31/19at 09:17; Admin Dose 400 MG; Start 01/23/19 at 09:00 Oxycodone HCl (Roxicodone) 15 mg Q4H PRN PO MODERATE TO SEVERE PAIN Last administered on 01/23/19at 17:58; Admin Dose 15 MG; Start 01/23/19 at 00:00 Miscellaneous Information 1 ea NOTE XX ; Start 01/22/19 at 23:45 Glucose (Glutose) 15 gm Q15M PRN PO DECREASED GLUCOSE; Start 01/22/19 at 23:45 Glucose (Glutose) 22.5 gm Q15M PRN PO DECREASED GLUCOSE; Start 01/22/19 at 23:45 Dextrose (D50w Syringe) 25 ml Q15M PRN IV DECREASED GLUCOSE; Start 01/22/19 at 23:45 Dextrose (D50w Syringe) 50 ml Q15M PRN IV DECREASED GLUCOSE; Start 01/22/19 at 23:45 Glucagon (Glucagen) 1 mg Q15M PRN IM DECREASED GLUCOSE; Start 01/22/19 at 23:45 Glucose (Glutose) 15 gm Q15M PRN BUCCAL DECREASED GLUCOSE; Start 01/22/19 at 23:45 Atorvastatin Calcium (Lipitor) 20 mg DAILY@21 PO ; Start 01/23/19 at 21:00 Vancomycin HCl (Vanco Iv Per Pharmacy) VANCOMYCIN PER PHARMACY PER PROTOCOL XX ; Start 01/23/19 at 07:00 Cefepime HCl 50 ml @ 100 mls/hr Q12 IVPB Last administered on 01/23/19at 09:17; Admin Dose 100 MLS/HR; Start 01/23/19 at 09:00 Vancomycin HCl 1.25 gm/Sodium Chloride 250 ml @ 83.333 mls/ hr Q24H IVPB ; Start 01/24/19 at 09:00 Magnesium Oxide (Mag-Ox 400) 400 mg BID PO Last administered on 01/23/19at 14:18; Admin Dose 400 MG; Start 01/23/19 at 13:30 Insulin Glargine (Lantus) 30 units DAILY@0800 SC ; Start 01/24/19 at 08:00 Insulin Aspart (Novolog Insulin Pen) 10 unit WITH MEALS SC ; Start 01/24/19 at 07:55 Morphine Sulfate (morphine) 2 mg Q4H PRN IV SEVERE PAIN LEVEL 7-10; Start 01/23/19 at 19:00 ELIA ORTEGA DPM Jan 23, 2019 19:49
[2019-01-23] MEDS ORDERED: NON-FORMULARY/PATIENT OWN MED (Simvastatin 40 MG) PO SCH (21:00)
[2019-01-23] MEDS: ATORVASTATIN 20 MG TAB PO SCH (21:17)
[2019-01-23] MEDS ORDERED: INSULIN ASPART [NOVOLOG] 3 ML PEN SC ONE (22:00)
[2019-01-23] MEDS ORDERED: INSULIN GLARGINE [LANTus] (100 UNITS/ML) SYG SC ONE (22:00)
[2019-01-24] VITALS (11 sets, daily range): BP systolic 127–142; BP diastolic 57–71; PULSE 56–85; RESP 18–19
[2019-01-24] MEDS ORDERED: MAGNESIUM SULFATE 2 GM/50 ML 50 ML IVPB ONE
[2019-01-24] MEDS: oxyCODONE 15 MG TAB PO PRN (00:20)
[2019-01-24] MEDS: ACCU-CHEK XX SCH (02:00)
[2019-01-24] MEDS: SOD CHLORIDE 0.9% 1,000 ML IV SCH ×2 (06:21→19:03)
[2019-01-24] MEDS ORDERED: INSULIN ASPART [NOVOLOG] 3 ML PEN SC SCH (07:55)
[2019-01-24] MEDS ORDERED: INSULIN GLARGINE [LANTus] (100 UNITS/ML) SYG SC SCH ×2 (08:00)
[2019-01-24] MEDS: ASPIRIN (EC) 81 MG TAB PO SCH (08:09)
[2019-01-24] MEDS: MAGNESIUM OXIDE 400 MG TAB PO SCH ×2 (08:09→20:28)
[2019-01-24] MEDS: GABAPENTIN 400 MG CAP PO SCH ×4 (08:09→20:28)
[2019-01-24] MEDS: CEFEPIME 1GM/50 ML (PMX) 50 ML IVPB SCH ×2 (08:09→20:28)
[2019-01-24] MEDS: INSULIN ASPART [NOVOLOG] 3 ML PEN SC SCH ×6 (08:14→20:37)
[2019-01-24] MEDS: HEPARIN 5,000 UNIT/1 ML VIAL SC SCH ×2 (08:15→20:39)
[2019-01-24] MEDS ORDERED: VANCOMYCIN HCL 1.25 GM in SOD CHLORIDE 0.9% 250 ML IVPB SCH (09:00)
[2019-01-24] MEDS: morphine 2 MG INJ IV PRN ×2 (09:21→20:49)
--- NOTE | 2019-01-24 10:56 | PN ---
Date/Time of Note Date/Time of Note DATE: 01/24/19 TIME: 10:26 Assessment/Plan VTE Prophylaxis Risk score (from Nsg)>0 risk: 4 SCD applied (from Nsg): Yes Pharmacological prophylaxis: heparin Lines/Catheters IV Catheter Type (from Nrsg): Peripheral IV Assessment/Plan Hospital Course S: wants to go home, no new complaints O: Constitutional: alert, oriented, obese, seems SOB Head: atraumatic, normocephalic Neck: non-tender, supple Respiratory: clear to auscultation Cardiovascular: regular rate and rhythm Gastrointestinal: S/ NT / ND / +BS Extremities: Hany chronic LE edema with skin changes, R foot in clean dressing assessment and plan: 53-year-old morbidly obese male who had presented to the emergency room with left lower extremity wound that was failing outpatient management. He is currently managed as follows: 1. Left lower extremity ulcer with surrounding cellulitis, diabetic ulcer 2. Uncontrolled diabetes type 2, A1c 9.3 3. Chronic obesity 4. Acute renal insufficiency rule out chronic kidney disease: Improving -home diuretics on hold 5. History of peripheral vascular disease 6. Obstructive sleep apnea on home CPAP at bedtime 7. Mild Hypercapnic respiratory insufficiency with likely acute on chronic CHF -Evidence of mild cardiomegaly with some vascular congestion on chest x-ray 8. Leukocytosis without evidence of sepsis 9. Chronic hypochromic anemia: Stable 10. Chronic tobacco use with possible underlying COPD -Smoking Cessation Therapy: Pt. was counselled for greater than 3 minutes on the health risks of continued smoking and the benefits of cessation, this will continue to be reinforced throughout hospitalization. Plan: -Continue empiric antibiotics for now, follow-up final cultures from the wound. -Podiatry recommended daily dressing of left heel and strict nonweightbearing le ft lower extremity in cam walker. Will have PT provide -We will get 2D echo, begin long-acting bronchodilator therapy and provide supplemental oxygen as needed. -ABG yesterday morning was consistent with hypercapnia and respiratory acidosis, will repeat today. Supplemental O2 -Continue to hold diuretics, metformin, KEVON inhibitors. Continue to renally dose all medications. We will cut down rate of IV fluids however. -Ambulate as tolerated. Plan to DC IV fluids as soon as renal function nor malizes. -Continue carb controlled diet. Adjust insulin. Further interventions per course Result Diagram: 01/24/19 0617 01/24/19 0617 Results 24hrs Laboratory Tests Test 01/23/19 12:02 01/23/19 17:24 01/23/19 21:14 01/23/19 23:16 Bedside Glucose 237 H 336 H 360 H 350 H Test 01/24/19 01:58 01/24/19 06:17 01/24/19 08:07 Bedside Glucose 332 H 293 H White Blood Count 14.9 #H Red Blood Count 4.22 L Hemoglobin 11.6 L Hematocrit 37.9 L Mean Corpuscular 89.8 Volume Mean Corpuscular 27.5 L Hemoglobin Mean Corpuscular 30.6 L Hemoglobin Concent Red Cell 16.4 H Distribution Width Platelet Count 163 Mean Platelet Volume 12.5 H Immature 0.500 H Granulocytes % Neutrophils % 85.6 H Lymphocytes % 8.2 L Monocytes % 5.6 Eosinophils % 0.0 Basophils % 0.1 Nucleated Red Blood 0.0 Cells % Immature 0.080 H Granulocytes # Neutrophils # 12.7 H Lymphocytes # 1.2 Monocytes # 0.8 Eosinophils # 0.0 Basophils # 0.0 Nucleated Red Blood 0.0 Cells # Sodium Level 141 Potassium Level 4.3 Chloride Level 101 Carbon Dioxide Level 31 Anion Gap 9 Blood Urea Nitrogen 38 H Creatinine 1.30 H Est Glomerular 57 L Filtrat Rate mL/min Glucose Level 318 H Calcium Level 8.3 L Magnesium Level 2.1 Exam/Review of Systems Exam Vitals Vital Signs Date Temp Pulse Resp B/P (MAP) Pulse Ox O2 O2 Flow FiO2 Time Delivery Rate 01/24/19 72 08:01 01/24/19 Nasal 1.0 08:00 Cannula 01/24/19 98.0 18 134/68 93 07:50 (90) 01/24/19 30 00:45 Intake and Output 01/23/19 01/23/19 01/24/19 1515:00 23:00 07:00 IntakeIntake Total 1380 ml 500 ml OutputOutput Total 1450 ml 800 ml BalanceBalance -70 ml -300 ml Results Results 24hrs Laboratory Tests Test 01/23/19 12:02 01/23/19 17:24 01/23/19 21:14 01/23/19 23:16 Bedside Glucose 237 H 336 H 360 H 350 H Test 01/24/19 01:58 01/24/19 06:17 01/24/19 08:07 Bedside Glucose 332 H 293 H White Blood Count 14.9 #H Red Blood Count 4.22 L Hemoglobin 11.6 L Hematocrit 37.9 L Mean Corpuscular 89.8 Volume Mean Corpuscular 27.5 L Hemoglobin Mean Corpuscular 30.6 L Hemoglobin Concent Red Cell 16.4 H Distribution Width Platelet Count 163 Mean Platelet Volume 12.5 H Immature 0.500 H Granulocytes % Neutrophils % 85.6 H Lymphocytes % 8.2 L Monocytes % 5.6 Eosinophils % 0.0 Basophils % 0.1 Nucleated Red Blood 0.0 Cells % Immature 0.080 H Granulocytes # Neutrophils # 12.7 H Lymphocytes # 1.2 Monocytes # 0.8 Eosinophils # 0.0 Basophils # 0.0 Nucleated Red Blood 0.0 Cells # Sodium Level 141 Potassium Level 4.3 Chloride Level 101 Carbon Dioxide Level 31 Anion Gap 9 Blood Urea Nitrogen 38 H Creatinine 1.30 H Est Glomerular 57 L Filtrat Rate mL/min Glucose Level 318 H Calcium Level 8.3 L Magnesium Level 2.1 Medications Medication Current Medications Sodium Chloride 1,000 ml @ 100 mls/hr Q10H IV Last administered on 01/24/19at 06:21; Admin Dose 100 MLS/HR; Start 01/22/19 at 23:49 IV Flush (NS 3 ml) 3 ml PER PROTOCOL IV ; Start 01/23/19 at 00:00 Ondansetron HCl (Zofran Inj) 4 mg Q6H PRN IV NAUSEA/VOMITING; Start 01/23/19 at 00:00 Acetaminophen (Tylenol Tab) 650 mg Q6H PRN PO .PAIN 1-3 OR TEMP; Start 01/23/19 at 00:00 Heparin Sodium (Porcine) (Heparin (5000 Units/1ml)) 5,000 unit Q12 SC Last administered on 01/24/19at 08:15; Admin Dose 5,000 UNIT; Start 01/23/19 at 09:00 Albuterol/ Ipratropium (Duoneb) 3 ml Q2H RESP THERAPY PRN HHN SHORTNESS OF BREATH Last administered on 01/23/19at 09:00; Admin Dose 3 ML; Start 01/23/19 at 00:00 Diagnostic Test (Pha) (Accu-Chek) 1 ea 02 XX ; Start 01/23/19 at 02:00 Insulin Aspart (Novolog Insulin Pen) NOVOLOG *MILD* ALGORITHM WITH MEALS BEDTIME SC Last administered on 01/24/19at 08:14; Admin Dose 4 UNIT; Start 01/23/19 at 07:55 Aspirin (Halfprin) 81 mg DAILY PO Last administered on 01/24/19at 08:09; Admin Dose 81 MG; Start 01/23/19 at 09:00 Gabapentin (Neurontin) 400 mg TID PO Last administered on 01/23/19at 09:17; Admin Dose 400 MG; Start 01/23/19 at 09:00 Oxycodone HCl (Roxicodone) 15 mg Q4H PRN PO MODERATE TO SEVERE PAIN Last administered on 01/24/19at 00:20; Admin Dose 15 MG; Start 01/23/19 at 00:00 Miscellaneous Information 1 ea NOTE XX ; Start 01/22/19 at 23:45 Glucose (Glutose) 15 gm Q15M PRN PO DECREASED GLUCOSE; Start 01/22/19 at 23:45 Glucose (Glutose) 22.5 gm Q15M PRN PO DECREASED GLUCOSE; Start 01/22/19 at 23:45 Dextrose (D50w Syringe) 25 ml Q15M PRN IV DECREASED GLUCOSE; Start 01/22/19 at 23:45 Dextrose (D50w Syringe) 50 ml Q15M PRN IV DECREASED GLUCOSE; Start 01/22/19 at 23:45 Glucagon (Glucagen) 1 mg Q15M PRN IM DECREASED GLUCOSE; Start 01/22/19 at 23:45 Glucose (Glutose) 15 gm Q15M PRN BUCCAL DECREASED GLUCOSE; Start 01/22/19 at 23:45 Atorvastatin Calcium (Lipitor) 20 mg DAILY@21 PO Last administered on 01/23/19at 21:17; Admin Dose 20 MG; Start 01/23/19 at 21:00 Vancomycin HCl (Vanco Iv Per Pharmacy) VANCOMYCIN PER PHARMACY PER PROTOCOL XX ; Start 01/23/19 at 07:00 Cefepime HCl 50 ml @ 100 mls/hr Q12 IVPB Last administered on 01/24/19at 08:09; Admin Dose 100 MLS/HR; Start 01/23/19 at 09:00 Vancomycin HCl 1.25 gm/Sodium Chloride 250 ml @ 83.333 mls/ hr Q24H IVPB Last administered on 01/24/19at 09:04; Admin Dose 83.333 MLS/HR; Start 01/24/19 at 09:00 Magnesium Oxide (Mag-Ox 400) 400 mg BID PO Last administered on 01/24/19 08:09; Admin Dose 400 MG; Start 01/23/19 at 13:30 Insulin Aspart (Novolog Insulin Pen) 10 unit WITH MEALS SC Last administered on 01/24/19 08:14; Admin Dose 10 UNIT; Start 01/24/19 at 07:55 Morphine Sulfate (morphine) 2 mg Q4H PRN IV SEVERE PAIN LEVEL 7-10 Last administered on 01/24/19 09:21; Admin Dose 2 MG; Start 01/23/19 at 19:00 Insulin Glargine (Lantus) 30 units DAILY@0800 SC Last administered on 01/24/19at 08:39; Admin Dose 30 UNITS; Start 01/24/19 at 08:00 SANTO HENLEY Jan 24, 2019 10:36
[2019-01-24] MEDS ORDERED: INSULIN GLARGINE [LANTus] (100 UNITS/ML) SYG SC ONE (11:00)
[2019-01-24] MEDS ORDERED: PENDING SANTYL ORDER FOR WOUND CARE XX PRN (11:00)
[2019-01-24] MEDS: ARFORMOTEROL TARTRATE 15MCG/2 ML AMP NEB SCH (20:05)
[2019-01-24] MEDS: ATORVASTATIN 20 MG TAB PO SCH (20:28)
[2019-01-24] MEDS: VANCOMYCIN 750 MG (PMX) 250 ML IVPB SCH (21:09)
[2019-01-25 01:15] VITALS: PULSE 62
[2019-01-25] MEDS: ACCU-CHEK XX SCH (02:00)
[2019-01-25 02:26] VITALS: BP 128/69; PULSE 76; RESP 17
[2019-01-25] MEDS: morphine 2 MG INJ IV PRN ×2 (05:57→09:59)
[2019-01-25 08:00] VITALS: BP 134/65; PULSE 58; RESP 18
[2019-01-25] MEDS ORDERED: INSULIN GLARGINE [LANTus] (100 UNITS/ML) SYG SC SCH (08:00)
[2019-01-25] MEDS: GABAPENTIN 400 MG CAP PO SCH ×2 (08:23→12:15)
[2019-01-25] MEDS: ASPIRIN (EC) 81 MG TAB PO SCH (08:23)
[2019-01-25] MEDS: MAGNESIUM OXIDE 400 MG TAB PO SCH (08:23)
[2019-01-25] MEDS: CEFEPIME 1GM/50 ML (PMX) 50 ML IVPB SCH (08:24)
[2019-01-25] MEDS: INSULIN ASPART [NOVOLOG] 3 ML PEN SC SCH ×4 (08:30→12:19)
[2019-01-25] MEDS: HEPARIN 5,000 UNIT/1 ML VIAL SC SCH (08:33)
[2019-01-25] MEDS ORDERED: COLLAGENASE 5 GM (UD JAR) TOP SCH (09:00)
[2019-01-25] MEDS: ARFORMOTEROL TARTRATE 15MCG/2 ML AMP NEB SCH (09:30)
[2019-01-25] MEDS: VANCOMYCIN 750 MG (PMX) 250 ML IVPB SCH (09:36)
--- NOTE | 2019-01-25 10:46 | RADRPT ---
Echocardiogram Report Patient Name: BRI CORTEZPatient ID: [id number] : 1965 (53y 8m)Study Date: 01/24/2019 2:35:46 PM Gender: MAccession #: [id number] Tech: Garry Babin [facility] Location: 5562-A Ref.Physician: SANTO HENLEY Height(Cm): BSA: Weight(Kg): Quality: Technically Difficult StudyAccount #: Procedures: Echocardiographic Report: Transthoracic echocardiogram with complete 2D, M-Mode, and doppler examination. Indications: Respiratory acidosis. Measurements: 2D/M Mode Doppler Measurement Value Normal Range Measurement Value Normal Range LVIDd 2D 5.3 [ 4.2 - 5.8 ] cm AV Peak Navdeep 1.2 [ 100.0 - 170.0 ] cm/sec LVIDs 2D 3.6 [ 2.5 - 4.0 ] cm AV Peak PG 6.0 [ 2.0 - 9.0 ] mmHg LVPWd 2D 1.3 [ 0.6 - 1.0 ] cm LVOT Peak Navdeep 0.8 [ 70.0 - 110.0 ] cm/sec IVSd 2D 1.3 [ 0.6 - 1.0 ] cm LVOT Peak PG 2.0 [ 2.0 - 6.0 ] mmHg AoR Diam 2D 3.1 [ 2.6 - 3.4 ] cm MV E Peak Navdeep 1.0 [ 60.0 - 130.0 ] cm/sec EDV 2D 137.0 [ 62.0 - 150.0 ] ml MV A Peak Navdeep 0.7 [ 100.0 - 120.0 ] cm/sec ESV 2D 55.9 [ 21.0 - 61.0 ] ml MV E/A 1.3 [ 0.8 - 1.5 ] ratio EF 2D 59.2 [ 52.0 - 72.0 ] percent MV Decel Time 204 [ 104 - 258 ] msec LA Dimen 2D 3.9 [ 3.0 - 4.0 ] cm Lat E` Navdeep 0.1 [ 10.0 - 15.0 ] cm/sec Lateral E/E` 15.6 [ 1.0 - 2.0 ] ratio MV E/A 1.3 [ 0.8 - 1.5 ] ratio TR Peak Navdeep 1.4 [ 100.0 - 280.0 ] cm/sec TR Peak PG 8.0 mmHg RVSP 18.0 [ 10.0 - 36.0 ] mmHg RA Pressure 10.0 mmHg Findings: Left Ventricle: Overall, normal left ventricular systolic function. Not all segments visualized. Normal left ventricular cavity size. Left ventricle not well visualized. Mild concentric left ventricular hypertrophy. Tissue Doppler/Mitral Doppler indices are consistent with restrictive physiology with markedly elevated left atrial pressure (Stage III-IV diastolic dysfunction). Right Ventricle: Normal right ventricular size. Normal right ventricular systolic function. Left Atrium: The left atrium is normal in size. Right Atrium: The right atrium is normal in size. Mitral Valve: Mitral valve is not well visualized. Mild mitral leaflet calcification. Mild mitral annular calcification. Trace mitral regurgitation. Aortic Valve: Aortic valve not well visualized. No hemodynamically significant aortic stenosis by doppler. Aortic cusps appear mildly calcified. Tricuspid Valve: Normal appearance of the tricuspid valve. Tricuspid valve not well visualized. Unable to obtain RVSP due to minimal presence of tricuspid regurgitation. Pericardium: Normal pericardium with no significant pericardial effusion. Aorta: Normal aortic root. IVC: Dilated inferior vena cava with poor inspiratory collapse consistent with elevated right atrial pressures. Conclusions: Overall, normal left ventricular systolic function. Not all segments visualized. Normal left ventricular cavity size. Left ventricle not well visualized. Mild concentric left ventricular hypertrophy. Tissue Doppler/Mitral Doppler indices are consistent with restrictive physiology with markedly elevated left atrial pressure (Stage III-IV diastolic dysfunction). Aortic valve not well visualized. No hemodynamically significant aortic stenosis by doppler. Aortic cusps appear mildly calcified. Normal appearance of the tricuspid valve. Tricuspid valve not well visualized. Unable to obtain RVSP due to minimal presence of tricuspid regurgitation. Mitral valve is not well visualized. Mild mitral leaflet calcification. Mild mitral annular calcification. Trace mitral regurgitation. suboptimal study. Electronically Signed By: Mookie Parks 2019-01-25 10:46:03 PDT
[2019-01-25] MEDS: SOD CHLORIDE 0.9% 1,000 ML IV SCH (12:22)
--- NOTE | 2019-01-25 12:34 | CONS ---
Assessment/Plan Assessment/Plan Assessment/Plan (Daily) 53 yo male with DM and chronic left heel ulcer -Continuing with Every other day dressing changes, dressing change performed today. -Patient to continue non weight bearing in cam walker. -Follow up in [facility] upon discharge recommended. -will continue to follow. Consultation Date/Type/Reason Admit Date/Time Jan 22, 2019 at 22:47 Initial Consult Date Date/Time of Note DATE: 01/25/19 TIME: 12:30 24 HR Interval Summary Free Text/Dictation Patient seen follow up for left heel ulcer. His wound cultures from clinic grew out Pseudomonas, he was on Cipro outpatient. Denies any fevers, chills, nausea or vomiting. Exam/Review of Systems Exam Vitals Vital Signs Date Temp Pulse Resp B/P (MAP) Pulse Ox O2 O2 Flow FiO2 Time Delivery Rate 01/25/19 85 20 95 Nasal 3.0 09:31 Cannula 01/25/19 98.7 134/65 08:00 (88) 01/25/19 30 01:15 Intake and Output 01/24/19 01/24/19 01/25/19 1515:00 23:00 07:00 IntakeIntake Total 650 ml 640 ml 300 ml OutputOutput Total 300 ml 400 ml BalanceBalance 650 ml 340 ml -100 ml Exam Left heel ulcer with no deep probe or drainage. No proximal streaking noted. No maceration of the wound noted. Results Result Diagram: 01/25/19 0651 01/25/19 0651 Results 24hrs Laboratory Tests Test 01/24/19 12:36 01/24/19 13:32 01/24/19 17:17 01/24/19 20:37 Bedside Glucose 245 H 212 150 151 Test 01/25/19 06:51 01/25/19 08:27 01/25/19 12:18 White Blood Count 9.6 # Red Blood Count 4.19 L Hemoglobin 11.5 L Hematocrit 37.9 L Mean Corpuscular Volume 90.5 Mean Corpuscular 27.4 L Hemoglobin Mean Corpuscular 30.3 L Hemoglobin Concent Red Cell Distribution 16.5 H Width Platelet Count 170 Mean Platelet Volume 13.0 H Immature Granulocytes % 0.400 Neutrophils % 71.4 Lymphocytes % 19.4 Monocytes % 8.4 Eosinophils % 0.1 Basophils % 0.3 Nucleated Red Blood 0.0 Cells % Immature Granulocytes # 0.040 H Neutrophils # 6.9 Lymphocytes # 1.9 Monocytes # 0.8 Eosinophils # 0.0 Basophils # 0.0 Nucleated Red Blood 0.0 Cells # Blood Urea Nitrogen 24 #H Creatinine 0.87 Bedside Glucose 171 279 H Medications Medication Current Medications Sodium Chloride 1,000 ml @ 60 mls/hr [id number] IV Last administered on 01/25/19 12:22; Admin Dose 60 MLS/HR; Start 01/22/19 at 23:49 IV Flush (NS 3 ml) 3 ml PER PROTOCOL IV ; Start 01/23/19 at 00:00 Ondansetron HCl (Zofran Inj) 4 mg Q6H PRN IV NAUSEA/VOMITING; Start 01/23/19 at 00:00 Acetaminophen (Tylenol Tab) 650 mg Q6H PRN PO .PAIN 1-3 OR TEMP; Start 01/23/19 at 00:00 Heparin Sodium (Porcine) (Heparin (5000 Units/1ml)) 5,000 unit Q12 SC Last administered on 01/25/19 08:33; Admin Dose 5,000 UNIT; Start 01/23/19 at 09:00 Albuterol/ Ipratropium (Duoneb) 3 ml Q2H RESP THERAPY PRN HHN SHORTNESS OF BREATH Last administered on 01/23/19 09:00; Admin Dose 3 ML; Start 01/23/19 at 00:00 Diagnostic Test (Pha) (Accu-Chek) 1 ea 02 XX ; Start 01/23/19 at 02:00 Insulin Aspart (Novolog Insulin Pen) NOVOLOG *MILD* ALGORITHM WITH MEALS BEDTIME SC Last administered on 01/25/19 12:19; Admin Dose 4 UNIT; Start 01/23/19 at 07:55 Aspirin (Halfprin) 81 mg DAILY PO Last administered on 01/25/19 08:23; Admin Dose 81 MG; Start 01/23/19 at 09:00 Gabapentin (Neurontin) 400 mg TID PO Last administered on 01/25/19 12:15; Admin Dose 400 MG; Start 01/23/19 at 09:00 Oxycodone HCl (Roxicodone) 15 mg Q4H PRN PO MODERATE TO SEVERE PAIN Last administered on 01/24/19at 00:20; Admin Dose 15 MG; Start 01/23/19 at 00:00 Miscellaneous Information 1 ea NOTE XX ; Start 01/22/19 at 23:45 Glucose (Glutose) 15 gm Q15M PRN PO DECREASED GLUCOSE; Start 01/22/19 at 23:45 Glucose (Glutose) 22.5 gm Q15M PRN PO DECREASED GLUCOSE; Start 01/22/19 at 23:45 Dextrose (D50w Syringe) 25 ml Q15M PRN IV DECREASED GLUCOSE; Start 01/22/19 at 23:45 Dextrose (D50w Syringe) 50 ml Q15M PRN IV DECREASED GLUCOSE; Start 01/22/19 at 23:45 Glucagon (Glucagen) 1 mg Q15M PRN IM DECREASED GLUCOSE; Start 01/22/19 at 23:45 Glucose (Glutose) 15 gm Q15M PRN BUCCAL DECREASED GLUCOSE; Start 01/22/19 at 23:45 Atorvastatin Calcium (Lipitor) 20 mg DAILY@21 PO Last administered on 01/24/19at 20:28; Admin Dose 20 MG; Start 01/23/19 at 21:00 Vancomycin HCl (Vanco Iv Per Pharmacy) VANCOMYCIN PER PHARMACY PER PROTOCOL XX ; Start 01/23/19 at 07:00 Cefepime HCl 50 ml @ 100 mls/hr Q12 IVPB Last administered on 01/25/19at 08:24; Admin Dose 100 MLS/HR; Start 01/23/19 at 09:00 Magnesium Oxide (Mag-Ox 400) 400 mg BID PO Last administered on 01/25/19at 08:23; Admin Dose 400 MG; Start 01/23/19 at 13:30 Morphine Sulfate (morphine) 2 mg Q4H PRN IV SEVERE PAIN LEVEL 7-10 Last administered on 01/25/19at 09:59; Admin Dose 2 MG; Start 01/23/19 at 19:00 Miscellaneous Information (Pending Santyl Order For Wound Care) This patient weller... PRN PRN XX WOUND CARE; Start 01/24/19 at 11:00 Insulin Aspart (Novolog Insulin Pen) 12 unit WITH MEALS SC Last administered on 01/25/19at 12:16; Admin Dose 12 UNIT; Start 01/24/19 at 11:50 Insulin Glargine (Lantus) 36 units DAILY@0800 SC Last administered on 01/25/19at 08:33; Admin Dose 36 UNITS; Start 01/25/19 at 08:00 Arformoterol Tartrate (Brovana (Neb)) 2 ml Q12 NEB Last administered on 01/25/19at 09:30; Admin Dose 2 ML; Start 01/24/19 at 11:00 Carvedilol (Coreg) 12.5 mg BID PO Last administered on 01/25/19at 08:23; Admin Dose 12.5 MG; Start 01/24/19 at 21:00 Collagenase (Santyl) 1 applic DAILY TOP Last administered on 01/25/19at 10:00; Admin Dose 1 APPLIC; Start 01/25/19 at 09:00 Vancomycin/Sodium Chloride 250 ml @ 125 mls/hr Q12H IVPB Last administered on 01/25/19at 09:36; Admin Dose 125 MLS/HR; Start 01/24/19 at 21:00 ELIA ORTEGA DPJens Jan 25, 2019 12:34
[2019-01-25 14:00] VITALS: BP 154/74; PULSE 68; RESP 18
--- NOTE | 2019-01-25 14:41 | PDOCDIS ---
Discharge Instructions CONDITION Jaifn4Vl Patient Condition: [id number] Stable HOME CARE INSTRUCTIONS: Bmobu4Zt Special Diet: Frjng0a TY: [id number] Activity Restrictions: [id number] Slowly Increase Activity Rest between Activity FOLLOW UP/APPOINTMENTS Follow-up Plan [facility] [address] [phone] Followup with your primary doctor within the next 1-2 weeks. If you don't have one please let someone know, we can give you resources that may help you pick one. You may call Dr Rachid Coleman's office. he's accepting new patients Name, Degree: Rachid Coleman MD Specialty: Internal Medicine Comments: Office Address: [address] [place], [place] [phone] Office Office You may also call your insurance company to assign one to you. Review your medication list with your nurse before leaving and if you need new prescriptions please let your nurse know. * I have made changes to your home medications or given you new prescriptions, please let your primary doctor know as well. * Stay compliant with your medications and report any side effects to your PCP or pharmacist. * Return to the ER if you have any concerns and cannot reach your doctors or call your insurance company, they usually have a nurse that can help you. SANTO HENLEY Jan 25, 2019 14:41
[2019-01-25] MEDS ORDERED: NOVO3I SC (14:47)
[2019-01-25] MEDS ORDERED: AMLO5TAB4 PO (14:47)
[2019-01-25] MEDS ORDERED: BENA10TA4 PO (14:47)
[2019-01-25] MEDS ORDERED: LANT3I SC (14:47)
--- NOTE | 2019-01-25 14:48 | PDOCDIS ---
Discharge Instructions CONDITION Baxsb4Hp Patient Condition: Wdtra3b Stable HOME CARE INSTRUCTIONS: Iddsz7Bc Special Diet: Ddqdr0p TY: [id number] Activity Restrictions: [id number] Slowly Increase Activity Rest between Activity FOLLOW UP/APPOINTMENTS Follow-up Plan Follow-[facility] with [facility] [address] [phone] Followup with your primary doctor within the next 1-2 weeks. If you don't have one please let someone know, we can give you resources that may help you pick one. You may call Dr Rachid Coleman's office. he's accepting new patients Name, Degree: Rachid Coleman MD Specialty: Internal Medicine Comments: Office Address: [address] [place] [phone] Office Office You may also call your insurance company to assign one to you. Review your medication list with your nurse before leaving and if you need new prescriptions please let your nurse know. * I have made changes to your home medications or given you new prescriptions, please let your primary doctor know as well. * Stay compliant with your medications and report any side effects to your PCP or pharmacist. * Return to the ER if you have any concerns and cannot reach your doctors or call your insurance company, they usually have a nurse that can help you. REFERRALS Other Referrals Your diabetes has been very poorly controlled. I will be discharging you on insulin therapy only at this time. Please follow-up routinely with your primary care doctor, preferably in the next 1-2 weeks to ensure you continue to have optimal control. SANTO HENLEY Jan 25, 2019 14:48
[2019-01-25] MEDS ORDERED: CIPR750T3 PO (14:50)
[2019-01-25] MEDS ORDERED: LACTINEX PO (14:50)
[2019-01-25] MEDS: oxyCODONE 15 MG TAB PO PRN (15:52)
[2019-01-25] MEDS ORDERED: INSULIN GLARGINE [LANTus] (100 UNITS/ML) SYG SC ONE (16:00)
--- NOTE | 2019-01-25 16:32 | CONS ---
DATE OF ADMISSION: 01/22/2019 DATE OF CONSULTATION: TYPE OF CONSULTATION: Pulmonary. REASON FOR CONSULTATION: Shortness of breath. Thank you, Dr. Tran, for this consultation. HISTORY OF PRESENT ILLNESS: This is a 53-year-old gentleman with history of morbid obesity, obstruct owen sleep apnea, type 2 diabetes, came in with worsening lower extremity wound and also on admission was found to have worsening respiratory distress with evidence of hypercapnia. The patient is curren tldonny being treated for recurrent lower extremity wounds secondary to diabetes mellitus. In addition, he is using noninvasive positive pressure ventilation here. He states he has home CPAP but does not use it for more than several hours a day. PAST MEDICAL HISTORY: Obstructive sleep apnea, morbid obesity, type 2 diabetes. MEDICATIONS: Per chart. ALLERGIES: NONE. SOCIAL HISTORY: Nonsmoker, no alcohol, no history of drug use. FAMILY HISTORY: Noncontributory. SYSTEMS REVIEW: A 12-point review of systems was negative, other than that mentioned above. PHYSICAL EXAMINATION: GENERAL: Obese gentleman, comfortable at rest, talking in full and complete sentences. VITAL SIGNS: Currently afebrile, pulse is 58, blood pressure 134/65, O2 saturation 96% on 3 liters. NECK: Supple. No JVD or lymphadenopathy. CARDIAC: S1, S2. No added sounds or murmurs. CHEST: Diminished air entry bilaterally. ABDOMEN: Obese, soft, nontender. No guarding or rebound. EXTREMITIES: No cyanosis, clubbing or edema. NEUROLOGIC: Grossly intact. No focal deficits. LABORATORY DATA: ABG: pH 7.29, pCO2 of 77; now pH 7.41 today with a pCO2 of 59. BUN . Hemogl obin 11.5 with a white count of 9.6. DIAGNOSTIC DATA: Chest x-ray showed no evidence of cardiopulmonary disease and lower extremity Doppl ers were negative for deep vein thrombosis. IMPRESSION AND PLAN: 1. Recurrent lower extremity wound healing poorly likely secondary to diabetes and circulatory issue s. 2. Acute on chronic hypercapnia, likely secondary to poorly treated obesity hypoventilation syndrome with probable component of obstructive sleep apnea. The patient will require: 1. Likely a Trilogy bilevel ventilation device for home as opposed to his current CPAP. 2. Continue wound care. 3. Continue tight glycemic management. Dictated By: GLADIS YOUSSEF/NTS Conf#: [id number] DID#: [id number] CC: AURELIA JANG MD; DARLIN YOUNG MD;*[facility]*
--- NOTE | 2019-01-25 16:55 | DS ---
DATE OF ADMISSION: 01/22/2019 DATE OF DISCHARGE: 01/25/2019 FINAL DIAGNOSES: A 53-year-old morbidly obese male who had presented to the emergency room with left lower extremity wound that was failing outpatient management, currently managed as follows: 1. Left lower extremity ulcer with surrounding cellulitis, diabetic ulcer: Improved. 2. Uncontrolled diabetes type 2, A1c of 9.3. 3. Acute congestive heart failure exacerbation, diastolic, mild: Improved. 4. Mild hypercapnic respiratory insufficiency, likely related to congestive heart failure and noncompliance to BiPAP therapy: Resolved. 5. Chronic obstructive sleep apnea versus obesity hypoventilation syndrome. The patient is advised to maintain CPAP compliance at home. 6. Chronic tobacco use with possible underlying chronic obstructive pulmonary disease, status post status post physician counseling for at least 3 minutes with reinforcement. 7. Acute renal insufficiency: Resolved. The patient was doing better and was resumed on ACEi as well as diuretics at home. His medications have been adjusted. 8. History of peripheral vascular disease. 9. Chronic hypochromic anemia, stable. CONSULTS ON THE CASE: Uche Beckford DPM, for podiatry. INTERVENTION: For his foot, he had a foot x-ray that showed no evidence of osteomyelitis. X-ray of his tibia and fibula showed no osseous destruction. He has lower extremity venous Dopplers that showed no DVT. For his respiratory insufficiency, he had a chest x-ray that showed cardiomegaly with central pulmonary vascular congestion. He had a 2D echo that showed stage III to IV diastolic dysfunction; however ejection fraction was not documented, but the patient has ____ left ventricular systolic function and there was no significant valvular abnormality. SHORT HOSPITAL COURSE: Full details are available in chart for review. 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 He was on oral ciprofloxacin therapy, but he seems to be failing outpatient management. He was admitted and was started on intravenous therapy. At this time, he has been cleared by podiatry. Outpatient cultures grew out Pseudomonas. The patient is being discharged on oral ciprofloxacin therapy. His other comorbidities were managed per medical records. Please review chart for details. At this time, he is being assessed and stable for discharge. He will follow up with [facility]AR[facility], Dr. Beckford in the next 1 to 2 weeks. Also, follow up with primary care doctor in the next 1 week preferably. He was also advised to maintain compliance with his CPAP therapy, his meds were adjusted. DISCHARGE MEDICATIONS: Please see the patient's chart. DISCHARGE DIET: An 1800-calorie diabetic diet. ACTIVITY: As tolerated. The patient was also provided with Cam boot for his he left lower extremity. He also has Thursday, Thursday, Thursday home health for wound care and wound dressing. Time spent on discharge coordination is more than 45 minutes. Dictated By: SANTO HENLEY MD BA/NTS Conf#: [id number] DID#: [id number] CC: AURELIA JANG MD; DARLIN YOUNG MD; GLADIS RYAN MD;*EndCC* MTDD
== END 2019-01-25 16:31 | disposition home or self-care (01) | DRG 637 ==
LOC: E/R 20:40 → TEL 22:47 → 5EC 01-24 12:10
PROVIDERS: ADMIT Internal Medicine; ATTEND Internal Medicine
PROC: 5A09357 Assistance with Respiratory Ventilation, Less than 24 Consecutive Hours, Continuous Positive Airway Pressure (ICD-10-PCS; principal; 2019-01-23)
DX: E11.628 Type 2 diabetes mellitus with other skin complications (principal); I50.33 Acute on chronic diastolic (congestive) heart failure; L03.116 Cellulitis of left lower limb; L97.429 Non-pressure chronic ulcer of left heel and midfoot with unspecified severity; E66.2 Morbid (severe) obesity with alveolar hypoventilation; Z68.43 Body mass index [BMI] 50.0-59.9, adult; E11.621 Type 2 diabetes mellitus with foot ulcer; E11.51 Type 2 diabetes mellitus with diabetic peripheral angiopathy without gangrene; E11.65 Type 2 diabetes mellitus with hyperglycemia; N28.9 Disorder of kidney and ureter, unspecified; F17.200 Nicotine dependence, unspecified, uncomplicated; D50.9 Iron deficiency anemia, unspecified; J44.9 Chronic obstructive pulmonary disease, unspecified; Z79.4 Long term (current) use of insulin; Z79.82 Long term (current) use of aspirin
CPT/HCPCS: 36415; 36600; 71045; 73590; 80048; 80053; 80061; 82565; 82803; 82962; 83036; 83605; 83735; 83880; 84443; 84484; 84520; 85025; 85610; 85651; 85730; 86140; 87070; 93005; 93306; 93971; 94640; 94644; 94660; 94664; 96365; 96375; 97116; 97161; J0692; J1644; J1815; J2270; J2543; J2930; J3370; J3475; J7030; J7040; J7050

== ENCOUNTER 2019-03-04 12:37 | Inpatient (IN) | payer MEDICARE, OTHER ==
[~2019-03-04] VITALS: Ht 177.8 cm; Wt 167.4 kg
[~2019-03-04 12:37] MED LIST changes: +AMLO5TAB4 PO; +BENA10TA4 PO; -BENA20TA4 PO; +BUME2TAB2 PO; +CIPR750T3 PO; -FURO-110 PO; -HYDR-762 PO; -HYDR25TA6 PO; -INSU100V23 SC; +LACTINEX PO; -METF500T24 PO; +NOVO3I SC; +OXYC80TA39 PO; -POTA20TA8 PO; +SPIR25TA PO
[2019-03-04] MEDS ORDERED: morphine 2 MG INJ IV PRN (13:00)
[2019-03-04] MEDS ORDERED: ONDANSETRON 4 MG INJ IV PRN (13:00)
[2019-03-04] MEDS ORDERED: NACL 0.9% 3 ML SYG IV SCH (13:00)
[2019-03-04] MEDS ORDERED: GABAPENTIN 100 MG CAP PO SCH (13:00)
[2019-03-04] MEDS ORDERED: ACETAMINOPHEN 325 MG TAB PO PRN (13:00)
[2019-03-04] MEDS ORDERED: OXYCODONE/ACETAMINOPHEN (10/325) TAB PO PRN (13:00)
[2019-03-04] MEDS ORDERED: HYDROCODONE/APAP (5/325) TAB PO PRN (13:00)
[2019-03-04] MEDS ORDERED: GLUCOSE GEL 15 GRAM TUBE PO PRN ×2 (13:30)
[2019-03-04] MEDS ORDERED: GLUCAGON 1 MG INJ IM PRN (13:30)
[2019-03-04] MEDS ORDERED: DEXTROSE 50% 50 ML SYRINGE IV PRN ×2 (13:30)
[2019-03-04] MEDS ORDERED: GLUCOSE GEL 15 GRAM TUBE BUCCAL PRN (13:30)
[2019-03-04 13:53] VITALS: Ht 177.8 cm; Wt 167.4 kg
[2019-03-04] MEDS ORDERED: POLYETHYLENE GLYCOL 17 GM PACKET PO PRN (14:00)
[2019-03-04] MEDS ORDERED: BARIUM SULF 2% 450 ML BTL (BERRY SMOOTHIE) PO ONE (14:00)
[2019-03-04] MEDS ORDERED: VANCOMYCIN IV PER PHARMACY XX SCH (14:00)
[2019-03-04] MEDS ORDERED: BISACODYL (EC) 5 MG TAB PO PRN (14:00)
--- NOTE | 2019-03-04 14:03 | HP ---
Date/Time of Note Date/Time of Note DATE: 03/04/19 TIME: 14:02 Assessment/Plan VTE Prophylaxis Pharmacological prophylaxis: other Assessment/Plan Hospital Course Patient is a -Maltese male with a past medical history significant for hypertension, peripheral vascular disease, diabetes mellitus, pituitary tumor, obstructive sleep apnea, chronic left foot ulcer, obesity, who presents to [facility] after following up in the office of his practice coordinator. Podiatry took a look at his left foot ulcer which is chronic and stated that he would need to be sent to the hospital for IV antibiotics. Other than that issue, patient only complains of this new onset abdominal pain that is mild in nature however it is disturbing him, patient states that there was mild increase in swelling over his abdomen that is worse with different positions. Patient states that he did not change his diet or do anything different. Patient currently does not state he has chest pain, shortness of breath, dizziness, new leg pain, new neck pain, new skin issues. Objective Physical exam General: Patient is laying in bed and answers questions appropriately, obese Mentation: Patient is alert and oriented 4, Head: Normocephalic atraumatic Eyes: EOMI, pupils reactive to light Neck: Supple, nontender, midline Respiratory: Clear to auscultation bilaterally Cardiovascular: regular rate, no obvious murmurs Gastrointestinal: Mildly tender to palpation in the mid abdomen to deep palpation, bowel sounds heard. Large abdomen Neurological: Moves all extremities spontaneously Skin: Left foot ulcer, bandaged, CDI, birthmark present on right upper thigh Assessment and plan Patient is an -Maltese male with a past medical history significant for chronic left foot ulcer, diabetes mellitus, obesity, peripheral vascular disease, hypertension, chronic pain who presents to [facility] after practice coordinator sent him here for IV antibiotics. The below assessment and plan is done without labs, stat labs have been ordered Acute on chronic left foot ulcer -Dr. Beckford is consulted for podiatry, ordered wound VAC -Broad-spectrum IV antibiotics -Infectious disease consulted Vague abdominal pain -Very mild and only palpable with deep palpation -We will obtain CT abdomen pelvis with oral contrast -Lipase pending, however highly do not suspect pancreatitis -Protonix and Carafate as symptoms may be related to gastritis Diabetes mellitus -Insulin while in house, adjust as needed Obstructive sleep apnea, -CPAP ordered at night Obesity -Chronic, monitor, dietary restriction advised Peripheral vascular disease -Follow-up outpatient with his multiple specialists Hypertension -Continue home meds History of pituitary tumor -Chronic, follows up with endocrinology in the outpatient setting Chronic anemia -Follows up with lead electrical engineer for CKD, continue to follow-up outpatient Chronic pain -Patient is on a very large regimen of opiate pain medication however patient is also a very large man, will be cautious with opiate administration however patient does appear trustworthy with dosages, cures database is not available at this time. Disposition -Awaiting labs, more plan to follow, continue IV antibiotics, awaiting ID and podiatry consultation. HPI/ROS Admit Date/Time Admit Date/Time March 04, 2019 at 12:37 PMH/Family/Social Past Medical History Medications Current Medications IV Flush (NS 3 ml) 3 ml PER PROTOCOL IV ; Start 03/04/19 at 13:00 Ondansetron HCl (Zofran Inj) 4 mg Q6H PRN IV NAUSEA/VOMITING; Start 03/04/19 at 13:00 Acetaminophen (Tylenol Tab) 650 mg Q6H PRN PO .PAIN 1-3 OR TEMP; Start 03/04/19 at 13:00 Morphine Sulfate (morphine) 2 mg Q4H PRN IV .PAIN 7-10; Start 03/04/19 at 13:00 Diagnostic Test (Pha) (Accu-Chek) 1 ea 02 XX ; Start 03/05/19 at 02:00 Insulin Glargine (Lantus) 30 units DAILY@2000 SC ; Start 03/04/19 at 20:00 Insulin Aspart (Novolog Insulin Pen) NOVOLOG *MILD* ALGORITHM WITH MEALS BEDTIME SC ; Start 03/04/19 at 18:00 Amlodipine Besylate (Norvasc) 5 mg DAILY PO ; Start 03/05/19 at 09:00 Aspirin (Halfprin) 81 mg DAILY PO ; Start 03/05/19 at 09:00 Benazepril HCl (Lotensin) 10 mg DAILY PO ; Start 03/05/19 at 09:00 Carvedilol (Coreg) 12.5 mg BID PO ; Start 03/04/19 at 21:00 Gabapentin (Neurontin) 200 mg TID PO ; Start 03/04/19 at 13:00 Insulin Aspart (Novolog Insulin Pen) 5 unit WITH MEALS SC ; Start 03/04/19 at 18:00 Spironolactone (Aldactone) 25 mg DAILY PO ; Start 03/05/19 at 09:00 Bumetanide (Bumex) 2 mg DAILY PO ; Start 03/05/19 at 09:00 Atorvastatin Calcium (Lipitor) 20 mg HS PO ; Start 03/04/19 at 21:00 Miscellaneous Information 1 ea NOTE XX ; Start 03/04/19 at 13:30 Glucose (Glutose) 15 gm Q15M PRN PO DECREASED GLUCOSE; Start 03/04/19 at 13:30 Glucose (Glutose) 22.5 gm Q15M PRN PO DECREASED GLUCOSE; Start 03/04/19 at 13:30 Dextrose (D50w Syringe) 25 ml Q15M PRN IV DECREASED GLUCOSE; Start 03/04/19 at 13:30 Dextrose (D50w Syringe) 50 ml Q15M PRN IV DECREASED GLUCOSE; Start 03/04/19 at 13:30 Glucagon (Glucagen) 1 mg Q15M PRN IM DECREASED GLUCOSE; Start 03/04/19 at 13:30 Glucose (Glutose) 15 gm Q15M PRN BUCCAL DECREASED GLUCOSE; Start 03/04/19 at 13:30 Oxycodone HCl (Roxicodone) 15 mg Q4H PRN PO PAIN; Start 03/04/19 at 14:00; Status UNV Oxycodone HCl (Oxycontin) 80 mg Q12 PO ; Start 03/04/19 at 21:00; Status UNV Piperacillin Sod/ Tazobactam Sod 100 ml @ 200 mls/hr Q6 IVPB ; Start 03/04/19 at 18:00; Status UNV Vancomycin HCl (Vanco Iv Per Pharmacy) VANCOMYCIN PER PHARMACY PER PROTOCOL XX ; Start 03/04/19 at 14:00; Status UNV Barium Sulfate (Readi-Cat 2 ( [employer] )) Adult and Pediatric formulatio... GIVE PRIOR TO CT ONCE PO ; Start 03/04/19 at 14:00; Stop 03/04/19 at 14:01; Status UNV Pantoprazole (Protonix Tab) 40 mg DAILY@06 PO ; Start 03/04/19 at 14:00; Status UNV Sucralfate (Carafate Susp) 1 gm QID PO ; Start 03/04/19 at 17:00; Status UNV Coded Allergies: No Known Allergies (Verified Allergy, Unknown, 07/02/17) Past Surgical History Past Surgical Hx: other Family History Significant Family History: no pertinent family hx ANURAG TUCKER March 04, 2019 14:03
[2019-03-04 14:38] VITALS: BP 126/58; PULSE 76; RESP 19
[2019-03-04] MEDS: PANTOPRAZOLE (EC) 40 MG TAB PO SCH (15:03)
[2019-03-04] MEDS ORDERED: SOD CHLORIDE 0.9% 1,000 ML IV SCH (15:30)
[2019-03-04] MEDS ORDERED: VANCOMYCIN HCL 2 GM in SOD CHLORIDE 0.9% 500 ML IVPB ONE ×2 (15:30→16:00)
--- NOTE | 2019-03-04 16:12 | CONS ---
DATE OF ADMISSION: 03/04/2019 DATE OF CONSULTATION: 03/04/2019 TYPE OF CONSULTATION: Infectious disease. REASON FOR CONSULTATION: Antibiotic management. HISTORY OF PRESENT ILLNESS: Keith Flood is a 53-year-old -[place] male with numerous proble ms who comes in with left foot diabetic ulcer and is being seen for antibiotic management. His past problems include: 1. Hypertension. 2. Peripheral vascular disease. 3. Diabetes mellitus. 4. History of pituitary tumor. 5. Obstructive sleep apnea. 6. Chronic left foot ulcer. 7. Obesity. The patient presents to [facility] after seeing his radial saw operator who sent him into [facility] for [facility]. He also has new onset of abdominal pain that is mild in nature, but is bothers ome to him. He did not change his diet or do anything different. He does not complain of chest pain , shortness of breath, leg pain, neck pain or skin issues. PAST MEDICAL HISTORY: Operations as outlined. FAMILY HISTORY: Noncontributory. SOCIAL HISTORY: He does not smoke, drink or abuse drugs. ALLERGIES: NONE TO PENICILLIN, SULFA OR FOODS. MEDICATIONS: Per chart. REVIEW OF SYSTEMS: As per HPI. PHYSICAL EXAMINATION: GENERAL: The patient is lying in bed in no acute distress. VITAL SIGNS: Stable. He is afebrile. SKIN: Without generalized rash. His left foot ulcer is bandaged. The dressing is clean, dry and in tact. HEENT: Within normal limits. NECK: Supple. LYMPH NODES: None palpable. CHEST: Decreased breath sounds at the bases. HEART: Without murmur or gallop. ABDOMEN: Soft, nontender without organosplenomegaly or masses. EXTREMITIES: As noted, left foot ulcer is bandaged. RECTAL AND GENITAL: Deferred. NEUROLOGIC: No focal neurological abnormality. HOSPITAL COURSE: The patient is a diabetic with chronic left foot ulcer, obesity, peripheral vascula r disease, hypertension and chronic pain. 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 On admission, his white count was 11.1, H and H of 10.4 and 33.8, platelet count 188,00 0. BUN and creatinine is 51/3.14. The patient was started on vancomycin and Zosyn. Imaging studies are pending. We will continue him on this regimen. I will dictate my findings to the hospitalist. Dictated By: ZOILA COPELAND MD, JD/LAURA Conf#: [id number] DID#: [id number] CC: DARLIN YOUNG MD; ELIA ORTEGA DPM; ANURAG TUCKER MD;*End*
[2019-03-04] MEDS ORDERED: LIDOCAINE/MYLANTA 40 ML BTL PO ONE (16:30)
[2019-03-04] MEDS: SUCRALFATE (100 MG/ML) 10ML CUP PO SCH ×2 (16:56→20:55)
[2019-03-04] MEDS: INSULIN ASPART [NOVOLOG] 3 ML PEN SC SCH ×3 (17:42→21:00)
[2019-03-04] MEDS ORDERED: PIPER-TAZO 3.375 GM IV (PMX) 100 ML IVPB SCH (18:00)
[2019-03-04] MEDS ORDERED: PIPER-TAZO 2.25 GM/NS 50 ML IVPB SCH (18:00)
--- NOTE | 2019-03-04 19:08 | CONS ---
DATE OF ADMISSION: 03/04/2019 DATE OF CONSULTATION: 03/04/2019 TYPE OF CONSULTATION: Nephrology. REASON FOR CONSULTATION: Acute kidney injury. PHYSICIAN REQUESTING CONSULTATION: Anurag Martinez MD HISTORY OF PRESENT ILLNESS: This is a 53-year-old male with past medical history of chronic kidney d isease with previous baseline creatinine of 1.0 to 1.5 mg/dL, history of diabetes, history of periphe ral vascular disease, history of hypertension, history of pituitary tumor, history of sleep apnea, hi story of chronic left foot ulcer, obesity, who presents to [facility] after a follo wup with museum technician. The patient was seen by his museum technician for chronic left foot ulcer. The patien t was then recommended to come to the hospital for IV antibiotics. The patient also describes having new onset abdominal pain and increased lower extremity swelling. In terms of patient's renal history, the patient states he sees a sales and catering coordinator and was told he had st able chronic kidney disease. The patient does not know his baseline creatinine. The patient does ta ke diuretics and KEVON inhibitors. The patient denies any hemoptysis, hematemesis, hematochezia, any f rothy urine. PAST MEDICAL HISTORY: As stated above, history of hypertension, history of chronic kidney disease, h istory of peripheral vascular disease, history of diabetes, history of pituitary tumor, history of ob structive sleep apnea, history of chronic foot ulcer, history of obesity. PAST SURGICAL HISTORY: Reviewed. ALLERGIES: NO KNOWN DRUG ALLERGIES. SOCIAL HISTORY: No family history of kidney disease. SOCIAL HISTORY: Does not drink, smoke or do drugs. MEDICATIONS: Have been reviewed. REVIEW OF SYSTEMS: A 14-point review of systems was conducted. Pertinent positives as stated in the HPI, otherwise negative. PHYSICAL EXAMINATION: VITAL SIGNS: Blood pressure is 126/58, respiration 19, pulse 76, temperature 98.0. HEENT: Head is normocephalic. NECK: Supple. HEART: Regular rate. LUNGS: Show diminished breath sounds at the base. ABDOMEN: Soft, nontender to palpation without rebound or guarding. EXTREMITIES: Negative for clubbing, cyanosis. Positive edema. Noted wound VAC on left lower extrem ity. DERMATOLOGIC: No rashes. MUSCULOSKELETAL: No joint effusions. NEUROLOGIC: No focal deficits. LABORATORY DATA: Have been reviewed. IMAGING STUDIES: Have been reviewed. CT scan of abdomen and pelvis was reviewed. ASSESSMENT AND PLAN: This is a 53-year-old male who presents with: 1. Nonoliguric acute kidney injury with previous baseline creatinine of 1.0 to 1.5 mg/dL. Etiology of current acute kidney injury is unclear. Differential is broad including hemodynamics due to KEVON i nhibitor, diuretics, possibility of interstitial nephritis, septic acute kidney injury are considerat ions. Lower suspicion for acute glomerulonephritis or vasculitis at this time given patient's clinic al presentation; however, a full workup will be done. Plan is to check UA with microanalysis, check urine electrolytes, calculate FENa, fraction excretion of urea. We will check renal ultrasound to ev aluate renal parenchyma. We would recommend to hold KEVON inhibitor, diuretic therapy. I agree with maria antonia mcginnis challenge. Otherwise, we will continue current plans, supportive care, renally dose all meds. 2. Lactic acidosis. Etiology may be secondary to sepsis, hemodynamics. Continue IV fluids. Contin ue antibiotic therapy. Monitor closely. We will trend lactic acid level. 3. Anemia. Monitor hemoglobin and hematocrit levels. 4. Mineral bone disorder. Monitor calcium and phosphatase levels. 5. Acute left foot ulcer. The patient is currently being followed by podiatry. Continue wound care . The patient is on antibiotic therapy. Monitor closely. 6. Diabetes. Continue current insulin regimen. 7. History of sleep apnea. Continue CPAP. 8. Obesity. Continue dietary modification. 9. History of peripheral vascular disease. Continue to monitor. 10. Hypertension. Monitor blood pressure closely. Blood pressure medications were adjusted to avoi d hypotensive episode. 11. Chronic pain. Continue current pain regimen. Thank you, Dr. Martinez, for this interesting consult. It will be a pleasure to follow patient with winnie penningtonout the hospital course. Dictated By: CHRISTIANO FLOYD DO NR/NTS Conf#: [id number] DID#: [id number] CC: ELIA ORTEGA DPM; ANURAG MARTINEZ MD; DARLIN YOUNG MD;*End*
[2019-03-04 19:50] VITALS: BP 129/74; PULSE 78; RESP 16
[2019-03-04] MEDS: DOCUSATE SODIUM 100 MG CAP PO SCH (20:54)
[2019-03-04] MEDS: ATORVASTATIN 20 MG TAB PO SCH (20:54)
[2019-03-04] MEDS: oxyCODONE (CR) 40 MG TAB [oxyCONTIN] PO SCH (20:55)
[2019-03-04] MEDS: INSULIN GLARGINE [LANTus] (100 UNITS/ML) SYG SC SCH (20:57)
[2019-03-04] MEDS ORDERED: oxyCODONE (CR) 80 MG TAB [oxyCONTIN] PO SCH (21:00)
[2019-03-04] MEDS: PIPER-TAZO 2.25 GM/NS 50 ML IVPB SCH (22:23)
[2019-03-05] MEDS: ACCU-CHEK XX SCH (01:51)
[2019-03-05 01:55] VITALS: BP 116/64; PULSE 66; RESP 18
[2019-03-05 02:31] VITALS: PULSE 78
[2019-03-05 05:18] VITALS: PULSE 77
[2019-03-05] MEDS: PIPER-TAZO 2.25 GM/NS 50 ML IVPB SCH (05:50)
[2019-03-05] MEDS: PANTOPRAZOLE (EC) 40 MG TAB PO SCH (05:51)
[2019-03-05 08:00] VITALS: BP 159/110; PULSE 73; RESP 18
--- NOTE | 2019-03-05 08:11 | CONS ---
Assessment/Plan Assessment/Plan Assessment/Plan (Daily) 53 yo male with history of sleep apnea and PVD admitted with for left heel ulceration now on wound Vac. -Patient to continue with wound VAC. -wound cultures were obtained in amputation prevention clinic. -Patient seen by ID and appreciate recommendations. -Left heel wound VAC needs to be changed by nursing staff Thursday, Thu and Thursday. -Patient would need wound vac upon discharge, he would like to go to rehap or nursing facility. -will continue to follow. Thank you medicine team for your help in taking care of this patient. Consultation Date/Type/Reason Admit Date/Time March 04, 2019 at 12:37 Date/Time of Note DATE: 03/05/19 TIME: 08:05 Hx of Present Illness Patient is a pleasant 53 yo male admitted for non healing, worsening left heel ulcer. Patient is now on wound VAC. He denies any fevers, chills, nausea or vomiting. Past Medical History Home Meds Active Scripts Lactobacillus Acidophilus* (Lactinex*) 1 Tab Chew, 1 TAB PO BID, #14 TAB [facility]/19 Ciprofloxacin Hcl* (Ciprofloxacin Hcl*) 750 Mg Tablet, 750 MG PO BID, #10 TAB [facility] 01/25/19 Amlodipine Besylate* (Norvasc*) 5 Mg Tablet, 5 MG PO DAILY, #30 TAB 1 [facility] 01/25/19 Benazepril Hcl* (Benazepril Hcl*) 10 Mg Tablet, 10 MG PO DAILY, #30 TAB 1 [facility] Insulin Aspart* (Novolog Insulin Pen*) 100 Unit/Ml Soln, 14 UNIT SC WITH MEALS, #13 VIAL 1 [facility] 01/25/19 Insulin Glargine* (Lantus*) 100 Unit/Ml Soln, 40 UNIT SC HS, #12 VIAL 1 [facility] 01/25/19 Reported Medications Spironolactone* (Aldactone*) 25 Mg Tablet, 25 MG PO DAILY, #30 TAB 01/23/19 Oxycodone Hcl* (Oxycontin*) 80 Mg Tab.er.12h, 80 MG PO Q12, TAB 01/23/19 Bumetanide* (Bumetanide*) 2 Mg Tablet, 2 MG PO DAILY, TAB 01/23/19 Carvedilol* (Carvedilol*) 12.5 Mg Tablet, 12.5 MG PO BID, TAB 11/16/14 Simvastatin (Simvastatin) 40 Mg Tablet, 40 MG PO HS, TAB 11/16/14 Aspirin* (Aspirin* EC) 81 Mg Tablet.dr, 81 MG PO DAILY, TAB 11/16/14 Gabapentin* (Gabapentin*) 400 Mg Capsule, 400 MG PO TID, CAP 11/16/14 Oxycodone Hcl* (IR) (Oxycodone Hcl*) 15 Mg Tablet, 15 MG PO Q4H PRN for PAIN, TAB 11/16/14 Medications Current Medications IV Flush (NS 3 ml) 3 ml PER PROTOCOL IV ; Start 03/04/19 at 13:00 Ondansetron HCl (Zofran Inj) 4 mg Q6H PRN IV NAUSEA/VOMITING; Start 03/04/19 at 13:00 Acetaminophen (Tylenol Tab) 650 mg Q6H PRN PO .PAIN 1-3 OR TEMP; Start 03/04/19 at 13:00 Morphine Sulfate (morphine) 2 mg Q4H PRN IV .PAIN 7-10 Last administered on 03/05/19at 06:27; Admin Dose 2 MG; Start 03/04/19 at 13:00 Diagnostic Test (Pha) (Accu-Chek) 1 ea 02 XX ; Start 03/05/19 at 02:00 Insulin Glargine (Lantus) 30 units DAILY@2000 SC Last administered on 03/04/19at 20:57; Admin Dose 30 UNITS; Start 03/04/19 at 20:00 Insulin Aspart (Novolog Insulin Pen) NOVOLOG *MILD* ALGORITHM WITH MEALS BEDTIME SC Last administered on 03/04/19at 21:00; Admin Dose 1 UNIT; Start 03/04/19 at 18:00 Amlodipine Besylate (Norvasc) 5 mg DAILY PO ; Start 03/05/19 at 09:00 Aspirin (Halfprin) 81 mg DAILY PO ; Start 03/05/19 at 09:00 Carvedilol (Coreg) 12.5 mg BID PO Last administered on 03/04/19at 20:55; Admin Dose 12.5 MG; Start 03/04/19 at 21:00 Insulin Aspart (Novolog Insulin Pen) 5 unit WITH MEALS SC Last administered on 03/04/19at 17:42; Admin Dose 5 UNIT; Start 03/04/19 at 18:00 Atorvastatin Calcium (Lipitor) 20 mg HS PO Last administered on 03/04/19at 20:54; Admin Dose 20 MG; Start 03/04/19 at 21:00 Miscellaneous Information 1 ea NOTE XX ; Start 03/04/19 at 13:30 Glucose (Glutose) 15 gm Q15M PRN PO DECREASED GLUCOSE; Start 03/04/19 at 13:30 Glucose (Glutose) 22.5 gm Q15M PRN PO DECREASED GLUCOSE; Start 03/04/19 at 13:30 Dextrose (D50w Syringe) 25 ml Q15M PRN IV DECREASED GLUCOSE; Start 03/04/19 at 13:30 Dextrose (D50w Syringe) 50 ml Q15M PRN IV DECREASED GLUCOSE; Start 03/04/19 at 13:30 Glucagon (Glucagen) 1 mg Q15M PRN IM DECREASED GLUCOSE; Start 03/04/19 at 13:30 Glucose (Glutose) 15 gm Q15M PRN BUCCAL DECREASED GLUCOSE; Start 03/04/19 at 13:30 Oxycodone HCl (Roxicodone) 15 mg Q4H PRN PO PAIN; Start 03/04/19 at 14:00 Vancomycin HCl (Vanco Iv Per Pharmacy) VANCOMYCIN PER PHARMACY PER PROTOCOL XX ; Start 03/04/19 at 14:00 Pantoprazole (Protonix Tab) 40 mg DAILY@06 PO Last administered on 03/05/19at 05:51; Admin Dose 40 MG; Start 03/04/19 at 14:00 Sucralfate (Carafate Susp) 1 gm QID PO Last administered on 03/04/19at 20:55; Admin Dose 1 GM; Start 03/04/19 at 17:00 Docusate Sodium (Colace) 100 mg BID PO Last administered on 03/04/19at 20:54; Admin Dose 100 MG; Start 03/04/19 at 21:00 Polyethylene Glycol (Miralax) 17 gm DAILY PRN PO CONSTIPATION; Start 03/04/19 at 14:00 Bisacodyl (Dulcolax) 10 mg DAILY PRN PO CONSTIPATION; Start 03/04/19 at 14:00 Oxycodone HCl (Oxycontin) 40 mg Q12 PO Last administered on 03/04/19at 20:55; Admin Dose 40 MG; Start 03/04/19 at 21:00 Sodium Chloride 1,000 ml @ 50 mls/hr Q20H IV Last administered on 03/04/19at 16:53; Admin Dose 50 MLS/HR; Start 03/04/19 at 15:30; Stop 03/05/19 at 11:29 Piperacillin Sod/ Tazobactam Sod 100 ml @ 200 mls/hr Q8 IVPB ; Start 03/05/19 at 14:00 Allergies: Coded Allergies: No Known Allergies (Verified Allergy, Unknown, 07/02/17) Past Surgical History Past Surgical Hx: other Social History Smoking Status: Never smoker Exam/Review of Systems Exam Vitals Vital Signs Date Temp Pulse Resp B/P (MAP) Pulse Ox O2 O2 Flow FiO2 Time Delivery Rate 03/05/19 77 97 30 05:18 03/05/19 98.6 18 116/64 01:55 (81) 03/04/19 2.0 20:02 Intake and Output 03/04/19 03/04/19 03/05/19 1515:00 23:00 07:00 IntakeIntake Total 840 ml 1170 ml OutputOutput Total 400 ml BalanceBalance 840 ml 770 ml Exam Wound Vac intact left foot and running at 125 mmHg. No leakage or bleeding from the wound Vac noted. Results Result Diagram: 03/05/19 0626 03/05/19 0626 Results 24hrs Laboratory Tests Test 03/04/19 14:00 03/04/19 17:39 03/04/19 20:52 03/04/19 23:23 White Blood Count 11.1 H Red Blood Count 3.75 L Hemoglobin 10.4 L Hematocrit 33.8 L Mean Corpuscular 90.1 Volume Mean Corpuscular 27.7 L Hemoglobin Mean Corpuscular 30.8 L Hemoglobin Concen t Red Cell 15.9 H Distribution Width Platelet Count 188 Mean Platelet 12.0 H Volume Immature 0.400 Granulocytes % Neutrophils % 68.5 Lymphocytes % 21.6 Monocytes % 7.9 Eosinophils % 1.2 Basophils % 0.4 Nucleated Red 0.0 Blood Cells % Immature 0.050 H Granulocytes # Neutrophils # 7.6 H Lymphocytes # 2.4 Monocytes # 0.9 Eosinophils # 0.1 Basophils # 0.1 Nucleated Red 0.0 Blood Cells # Sodium Level 141 Potassium Level 4.8 Chloride Level 97 Carbon Dioxide 34 H Level Anion Gap 10 Blood Urea 50 H Nitrogen Creatinine 3.16 H Est Glomerular 21 L Filtrat Rate mL/min Glucose Level 201 Lactic Acid Level 2.3 *H Calcium Level 8.4 Magnesium Level 2.0 Total Bilirubin 0.3 Direct Bilirubin 0.00 Indirect 0.3 Bilirubin Aspartate Amino 31 Transf (AST/SGOT) Alanine 21 Aminotransferase (ALT/SGPT) Alkaline 73 Phosphatase Troponin I < 0.012 Total Protein 7.7 Albumin 3.7 Globulin 4.00 H Albumin/Globulin 0.92 Ratio Lipase 25 Bedside Glucose 166 183 Urine Color YELLOW Urine Clarity SLIGHTLY CLOUDY A Urine pH 5.0 Urine Specific 1.013 [place] Urine Ketones TRACE A Urine Nitrite NEGATIVE Urine Bilirubin NEGATIVE Urine NEGATIVE Urobilinogen Urine Leukocyte NEGATIVE Esterase Urine Microscopic 2 RBC Urine Microscopic 3 WBC Urine Squamous FEW Epithelial Cells Urine Hyaline FEW A Casts Urine Hemoglobin NEGATIVE Urine Random 179.10 Creatinine Urine Random 48 Sodium Urine Glucose NEGATIVE Urine Total NEGATIVE Protein Test 03/05/19 01:36 03/05/19 06:26 Bedside Glucose 234 H White Blood Count 8.0 # Red Blood Count 3.45 L Hemoglobin 9.5 L Hematocrit 31.2 L Mean Corpuscular 90.4 Volume Mean Corpuscular 27.5 L Hemoglobin Mean Corpuscular 30.4 L Hemoglobin Concen t Red Cell 16.0 H Distribution Width Platelet Count 170 Mean Platelet 12.7 H Volume Immature 0.300 Granulocytes % Neutrophils % 69.0 Lymphocytes % 19.8 Monocytes % 8.8 Eosinophils % 1.6 Basophils % 0.5 Nucleated Red 0.0 Blood Cells % Immature 0.020 Granulocytes # Neutrophils # 5.5 Lymphocytes # 1.6 Monocytes # 0.7 Eosinophils # 0.1 Basophils # 0.0 Nucleated Red 0.0 Blood Cells # Sodium Level 140 Potassium Level 5.2 H Chloride Level 99 Carbon Dioxide 33 H Level Anion Gap 8 Blood Urea 55 H Nitrogen Creatinine 4.10 H Est Glomerular 15 L Filtrat Rate mL/min Glucose Level 184 Hemoglobin A1c 9.8 H Calcium Level 8.0 L Phosphorus Level 6.2 H Magnesium Level 2.2 Total Bilirubin 0.4 Direct Bilirubin 0.00 Indirect 0.4 Bilirubin Aspartate Amino 28 Transf (AST/SGOT) Alanine 23 Aminotransferase (ALT/SGPT) Alkaline 66 Phosphatase Total Protein 7.3 Albumin 3.4 Globulin 3.90 H Albumin/Globulin 0.87 Ratio Triglycerides 77 Level Cholesterol Level 97 L LDL Cholesterol, 43 Calculated HDL Cholesterol 39 Cholesterol/HDL 2.4 Ratio Thyroid Pending Stimulating Hormone (TSH) Medications Medication Current Medications IV Flush (NS 3 ml) 3 ml PER PROTOCOL IV ; Start 03/04/19 at 13:00 Ondansetron HCl (Zofran Inj) 4 mg Q6H PRN IV NAUSEA/VOMITING; Start 03/04/19 at 13:00 Acetaminophen (Tylenol Tab) 650 mg Q6H PRN PO .PAIN 1-3 OR TEMP; Start 03/04/19 at 13:00 Morphine Sulfate (morphine) 2 mg Q4H PRN IV .PAIN 7-10 Last administered on 03/05/19at 06:27; Admin Dose 2 MG; Start 03/04/19 at 13:00 Diagnostic Test (Pha) (Accu-Chek) 1 ea 02 XX ; Start 03/05/19 at 02:00 Insulin Glargine (Lantus) 30 units DAILY@2000 SC Last administered on 03/04/19 20:57; Admin Dose 30 UNITS; Start 03/04/19 at 20:00 Insulin Aspart (Novolog Insulin Pen) NOVOLOG *MILD* ALGORITHM WITH MEALS BEDTIME SC Last administered on 03/04/19at 21:00; Admin Dose 1 UNIT; Start 03/04 at 18:00 Amlodipine Besylate (Norvasc) 5 mg DAILY PO ; Start 03/05/19 at 09:00 Aspirin (Halfprin) 81 mg DAILY PO ; Start 03/05/19 at 09:00 Carvedilol (Coreg) 12.5 mg BID PO Last administered on 03/04/19at 20:55; Admin Dose 12.5 MG; Start 03/04/19 at 21:00 Insulin Aspart (Novolog Insulin Pen) 5 unit WITH MEALS SC Last administered on 03/04/19at 17:42; Admin Dose 5 UNIT; Start 03/04/19 at 18:00 Atorvastatin Calcium (Lipitor) 20 mg HS PO Last administered on 03/04/19at 20:54; Admin Dose 20 MG; Start 03/04/19 at 21:00 Miscellaneous Information 1 ea NOTE XX ; Start 03/04/19 at 13:30 Glucose (Glutose) 15 gm Q15M PRN PO DECREASED GLUCOSE; Start 03/04/19 at 13:30 Glucose (Glutose) 22.5 gm Q15M PRN PO DECREASED GLUCOSE; Start 03/04/19 at 13:30 Dextrose (D50w Syringe) 25 ml Q15M PRN IV DECREASED GLUCOSE; Start 03/04/19 at 13:30 Dextrose (D50w Syringe) 50 ml Q15M PRN IV DECREASED GLUCOSE; Start 03/04/19 at 13:30 Glucagon (Glucagen) 1 mg Q15M PRN IM DECREASED GLUCOSE; Start 03/04/19 at 13:30 Glucose (Glutose) 15 gm Q15M PRN BUCCAL DECREASED GLUCOSE; Start 03/04/19 at 13:30 Oxycodone HCl (Roxicodone) 15 mg Q4H PRN PO PAIN; Start 03/04/19 at 14:00 Vancomycin HCl (Vanco Iv Per Pharmacy) VANCOMYCIN PER PHARMACY PER PROTOCOL XX ; Start 03/04/19 at 14:00 Pantoprazole (Protonix Tab) 40 mg DAILY@06 PO Last administered on 03/05/19at 05:51; Admin Dose 40 MG; Start 03/04/19 at 14:00 Sucralfate (Carafate Susp) 1 gm QID PO Last administered on 03/04/19at 20:55; Admin Dose 1 GM; Start 03/04/19 at 17:00 Docusate Sodium (Colace) 100 mg BID PO Last administered on 03/04/19at 20:54; Admin Dose 100 MG; Start 03/04/19 at 21:00 Polyethylene Glycol (Miralax) 17 gm DAILY PRN PO CONSTIPATION; Start 03/04/19 at 14:00 Bisacodyl (Dulcolax) 10 mg DAILY PRN PO CONSTIPATION; Start 03/04/19 at 14:00 Oxycodone HCl (Oxycontin) 40 mg Q12 PO Last administered on 03/04/19at 20:55; Admin Dose 40 MG; Start 03/04/19 at 21:00 Sodium Chloride 1,000 ml @ 50 mls/hr Q20H IV Last administered on 03/04/19at 16:53; Admin Dose 50 MLS/HR; Start 03/04/19 at 15:30; Stop 03/05/19 at 11:29 Piperacillin Sod/ Tazobactam Sod 100 ml @ 200 mls/hr Q8 IVPB ; Start 03/05/19 at 14:00 ELIA ORTEGA DPM March 05, 2019 08:11
[2019-03-05] MEDS: ASPIRIN (EC) 81 MG TAB PO SCH (08:40)
[2019-03-05] MEDS: SUCRALFATE (100 MG/ML) 10ML CUP PO SCH ×4 (08:40→21:12)
[2019-03-05] MEDS: DOCUSATE SODIUM 100 MG CAP PO SCH ×2 (08:40→21:10)
[2019-03-05] MEDS: oxyCODONE (CR) 40 MG TAB [oxyCONTIN] PO SCH (08:46)
[2019-03-05] MEDS: AMLODIPINE 5 MG TAB PO SCH (08:50)
[2019-03-05] MEDS: INSULIN ASPART [NOVOLOG] 3 ML PEN SC SCH ×7 (08:54→21:05)
[2019-03-05] MEDS ORDERED: BENAZEPRIL 10 MG TAB PO SCH (09:00)
[2019-03-05] MEDS ORDERED: BUMETANIDE 1 MG TAB PO SCH (09:00)
[2019-03-05] MEDS ORDERED: SPIRONOLACTONE 25 MG TAB PO SCH (09:00)
[2019-03-05] MEDS ORDERED: NA POLYST SULFON 15 GM/60 ML BTL PO ONE (11:30)
[2019-03-05] MEDS ORDERED: SODIUM POLYSTYRENE 15 GM KIT (POWDER + SORBITOL) PO ONE (11:30)
[2019-03-05] MEDS ORDERED: LACTULOSE 30ML CUP PO ONE (12:00)
--- NOTE | 2019-03-05 13:06 | CONS ---
Assessment/Plan Assessment/Plan Hospital Course (Demo Recall) 1. Nonoliguric acute kidney injury with previous baseline creatinine of 1.0 to 1.5 mg/dL. Etiology of current acute kidney injury is unclear. Differential is broad including hemodynamics due to aldactone, KEVON inhibitor, diuretics. cont to hold the above medications. will repeat urine lytes (as pt has been off of aldactone and bumex >24hours) Otherwise, we will continue current plans, pearl pportive care, renally dose all meds. 2. Lactic acidosis. Etiology may be secondary to sepsis, hemodynamics. Continue IV fluids. Continue antibiotic therapy. Monitor closely. We will trend lactic acid level. 3. Anemia. Monitor hemoglobin and hematocrit levels. 4. Mineral bone disorder. Monitor calcium and phosphatase levels. 5. Acute left foot ulcer. The patient is currently being followed by podiatry. Continue wound care. The patient is on antibiotic therapy. Monitor closely. 6. Diabetes. Continue current insulin regimen. 7. History of sleep apnea. Continue CPAP. 8. Obesity. Continue dietary modification. 9. History of peripheral vascular disease. Continue to monitor. 10. Hypertension. Monitor blood pressure closely. Blood pressure medications were adjusted to avoid hypotensive episode. 11. Chronic pain. Continue current pain regimen. Consultation Date/Type/Reason Admit Date/Time March 04, 2019 at 12:37 Initial Consult Date Date/Time of Note DATE: 03/05/19 TIME: 13:04 24 HR Interval Summary Free Text/Dictation denies shortness of breath, n/v or urinary issues d/w rn gen nad cv rrr pulm ctab abd soft nd nt +bs ext: no edema Exam/Review of Systems Exam Vitals Vital Signs Date Temp Pulse Resp B/P (MAP) Pulse Ox O2 O2 Flow FiO2 Time Delivery Rate 03/05/19 77 97 30 05:18 03/05/19 98.6 18 116/64 01:55 (81) 03/04/19 2.0 20:02 Intake and Output 03/04/19 03/04/19 03/05/19 1515:00 23:00 07:00 IntakeIntake Total 840 ml 1170 ml OutputOutput Total 400 ml BalanceBalance 840 ml 770 ml Results Result Diagram: 03/05/19 0626 03/05/19 0626 Results 24hrs Laboratory Tests Test 03/04/19 14:00 03/04/19 17:39 03/04/19 20:52 03/04/19 23:23 White Blood Count 11.1 H Red Blood Count 3.75 L Hemoglobin 10.4 L Hematocrit 33.8 L Mean Corpuscular 90.1 Volume Mean Corpuscular 27.7 L Hemoglobin Mean Corpuscular 30.8 L Hemoglobin Concen t Red Cell 15.9 H Distribution Width Platelet Count 188 Mean Platelet 12.0 H Volume Immature 0.400 Granulocytes % Neutrophils % 68.5 Lymphocytes % 21.6 Monocytes % 7.9 Eosinophils % 1.2 Basophils % 0.4 Nucleated Red 0.0 Blood Cells % Immature 0.050 H Granulocytes # Neutrophils # 7.6 H Lymphocytes # 2.4 Monocytes # 0.9 Eosinophils # 0.1 Basophils # 0.1 Nucleated Red 0.0 Blood Cells # Sodium Level 141 Potassium Level 4.8 Chloride Level 97 Carbon Dioxide 34 H Level Anion Gap 10 Blood Urea 50 H Nitrogen Creatinine 3.16 H Est Glomerular 21 L Filtrat Rate mL/min Glucose Level 201 Lactic Acid Level 2.3 *H Calcium Level 8.4 Magnesium Level 2.0 Total Bilirubin 0.3 Direct Bilirubin 0.00 Indirect 0.3 Bilirubin Aspartate Amino 31 Transf (AST/SGOT) Alanine 21 Aminotransferase (ALT/SGPT) Alkaline 73 Phosphatase Troponin I < 0.012 Total Protein 7.7 Albumin 3.7 Globulin 4.00 H Albumin/Globulin 0.92 Ratio Lipase 25 Bedside Glucose 166 183 Urine Color YELLOW Urine Clarity SLIGHTLY CLOUDY A Urine pH 5.0 Urine Specific 1.013 [place] Urine Ketones TRACE A Urine Nitrite NEGATIVE Urine Bilirubin NEGATIVE Urine NEGATIVE Urobilinogen Urine Leukocyte NEGATIVE Esterase Urine Microscopic 2 RBC Urine Microscopic 3 WBC Urine Squamous FEW Epithelial Cells Urine Hyaline FEW A Casts Urine Hemoglobin NEGATIVE Urine Random 179.10 Creatinine Urine Random 48 Sodium Urine Glucose NEGATIVE Urine Total NEGATIVE Protein Test 03/05/19 01:36 03/05/19 06:26 03/05/19 08:39 03/05/19 11:18 Bedside Glucose 234 H 198 White Blood Count 8.0 # Red Blood Count 3.45 L Hemoglobin 9.5 L Hematocrit 31.2 L Mean Corpuscular 90.4 Volume Mean Corpuscular 27.5 L Hemoglobin Mean Corpuscular 30.4 L Hemoglobin Concen t Red Cell 16.0 H Distribution Width Platelet Count 170 Mean Platelet 12.7 H Volume Immature 0.300 Granulocytes % Neutrophils % 69.0 Lymphocytes % 19.8 Monocytes % 8.8 Eosinophils % 1.6 Basophils % 0.5 Nucleated Red 0.0 Blood Cells % Immature 0.020 Granulocytes # Neutrophils # 5.5 Lymphocytes # 1.6 Monocytes # 0.7 Eosinophils # 0.1 Basophils # 0.0 Nucleated Red 0.0 Blood Cells # Sodium Level 140 Potassium Level 5.2 H Chloride Level 99 Carbon Dioxide 33 H Level Anion Gap 8 Blood Urea 55 H Nitrogen Creatinine 4.10 H Est Glomerular 15 L Filtrat Rate mL/min Glucose Level 184 Hemoglobin A1c 9.8 H Calcium Level 8.0 L Phosphorus Level 6.2 H Magnesium Level 2.2 Total Bilirubin 0.4 Direct Bilirubin 0.00 Indirect 0.4 Bilirubin Aspartate Amino 28 Transf (AST/SGOT) Alanine 23 Aminotransferase (ALT/SGPT) Alkaline 66 Phosphatase Total Protein 7.3 Albumin 3.4 Globulin 3.90 H Albumin/Globulin 0.87 Ratio Triglycerides 77 Level Cholesterol Level 97 L LDL Cholesterol, 43 Calculated HDL Cholesterol 39 Cholesterol/HDL 2.4 Ratio Thyroid 1.190 Stimulating Hormone (TSH) Absolute 0.064 Reticulocyte Count Percent 1.8 H Reticulocyte Count Lactic Acid Level 1.1 Iron Level 74 Total Iron 340 Binding Capacity Percent Iron 22 Saturation Lipase 34 Test 03/05/19 12:37 Bedside Glucose 163 Medications Medication Current Medications IV Flush (NS 3 ml) 3 ml PER PROTOCOL IV ; Start 03/04/19 at 13:00 Ondansetron HCl (Zofran Inj) 4 mg Q6H PRN IV NAUSEA/VOMITING; Start 03/04/19 at 13:00 Acetaminophen (Tylenol Tab) 650 mg Q6H PRN PO .PAIN 1-3 OR TEMP; Start 03/04/19 at 13:00 Morphine Sulfate (morphine) 2 mg Q4H PRN IV .PAIN 7-10 Last administered on 03/05/19at 06:27; Admin Dose 2 MG; Start 03/04/19 at 13:00 Diagnostic Test (Pha) (Accu-Chek) 1 ea 02 XX ; Start 03/05/19 at 02:00 Insulin Glargine (Lantus) 30 units DAILY@2000 SC Last administered on 03/04/19at 20:57; Admin Dose 30 UNITS; Start 03/04/19 at 20:00 Insulin Aspart (Novolog Insulin Pen) NOVOLOG *MILD* ALGORITHM WITH MEALS BEDTIME SC Last administered on 03/05/19at 12:40; Admin Dose 1 UNIT; Start 03/04/19 at 18:00 Amlodipine Besylate (Norvasc) 5 mg DAILY PO Last administered on 03/05/19at 08:50; Admin Dose 5 MG; Start 03/05/19 at 09:00 Aspirin (Halfprin) 81 mg DAILY PO Last administered on 03/05/19at 08:40; Admin Dose 81 MG; Start 03/05/19 at 09:00 Carvedilol (Coreg) 12.5 mg BID PO Last administered on 03/05/19at 08:50; Admin Dose 12.5 MG; Start 03/04/19 at 21:00 Insulin Aspart (Novolog Insulin Pen) 5 unit WITH MEALS SC Last administered on 03/05/19at 12:43; Admin Dose 5 UNIT; Start 03/04/19 at 18:00 Atorvastatin Calcium (Lipitor) 20 mg HS PO Last administered on 03/04/19at 20:54; Admin Dose 20 MG; Start 03/04/19 at 21:00 Miscellaneous Information 1 ea NOTE XX ; Start 03/04/19 at 13:30 Glucose (Glutose) 15 gm Q15M PRN PO DECREASED GLUCOSE; Start 03/04/19 at 13:30 Glucose (Glutose) 22.5 gm Q15M PRN PO DECREASED GLUCOSE; Start 03/04/19 at 13:30 Dextrose (D50w Syringe) 25 ml Q15M PRN IV DECREASED GLUCOSE; Start 03/04/19 at 13:30 Dextrose (D50w Syringe) 50 ml Q15M PRN IV DECREASED GLUCOSE; Start 03/04/19 at 13:30 Glucagon (Glucagen) 1 mg Q15M PRN IM DECREASED GLUCOSE; Start 03/04/19 at 13:30 Glucose (Glutose) 15 gm Q15M PRN BUCCAL DECREASED GLUCOSE; Start 03/04/19 at 13:30 Oxycodone HCl (Roxicodone) 15 mg Q4H PRN PO PAIN; Start 03/04/19 at 14:00 Pantoprazole (Protonix Tab) 40 mg DAILY@06 PO Last administered on 03/05/19at 05:51; Admin Dose 40 MG; Start 03/04/19 at 14:00 Sucralfate (Carafate Susp) 1 gm QID PO Last administered on 03/05/19at 12:37; Admin Dose 1 GM; Start 03/04/19 at 17:00 Docusate Sodium (Colace) 100 mg BID PO Last administered on 03/05/19at 08:40; Admin Dose 100 MG; Start 03/04/19 at 21:00 Polyethylene Glycol (Miralax) 17 gm DAILY PRN PO CONSTIPATION; Start 03/04/19 at 14:00 Bisacodyl (Dulcolax) 10 mg DAILY PRN PO CONSTIPATION; Start 03/04/19 at 14:00 Oxycodone HCl (Oxycontin) 40 mg Q12 PO Last administered on 03/05/19at 08:46; Admin Dose 40 MG; Start 03/04/19 at 21:00 Piperacillin Sod/ Tazobactam Sod 100 ml @ 200 mls/hr Q8 IVPB ; Start 03/05/19 at 14:00 ALIX TUCKER MD March 05, 2019 13:06
[2019-03-05 14:00] VITALS: BP 111/58; PULSE 64; RESP 18
[2019-03-05] MEDS: PIPER-TAZO 3.375 GM IV (PMX) 100 ML IVPB SCH ×2 (14:50→21:22)
--- NOTE | 2019-03-05 15:01 | PN ---
Date/Time of Note Date/Time of Note DATE: 03/05/19 TIME: 14:56 Objective Vitals Vital Signs Date Temp Pulse Resp B/P (MAP) Pulse Ox O2 O2 Flow FiO2 Time Delivery Rate 03/05/19 98.4 64 18 111/58 97 14:00 (75) 03/05/19 30 05:18 03/04/19 2.0 20:02 Intake and Output 03/04/19 03/04/19 03/05/19 1414:59 22:59 06:59 IntakeIntake Total 840 ml 1170 ml OutputOutput Total 400 ml BalanceBalance 840 ml 770 ml Results Result Diagram: 03/05/1962503/05/19625 Medications Medications Current Medications IV Flush (NS 3 ml) 3 ml PER PROTOCOL IV ; Start 03/04/19 at 13:00 Ondansetron HCl (Zofran Inj) 4 mg Q6H PRN IV NAUSEA/VOMITING; Start 03/04/19 at 13:00 Acetaminophen (Tylenol Tab) 650 mg Q6H PRN PO .PAIN 1-3 OR TEMP; Start 03/04/19 at 13:00 Morphine Sulfate (morphine) 2 mg Q4H PRN IV .PAIN 7-10 Last administered on 03/05/19at 06:27; Admin Dose 2 MG; Start 03/04/19 at 13:00 Diagnostic Test (Pha) (Accu-Chek) 1 ea 02 XX ; Start 03/05/19 at 02:00 Insulin Glargine (Lantus) 30 units DAILY@2000 SC Last administered on 03/04/19at 20:57; Admin Dose 30 UNITS; Start 03/04/19 at 20:00 Insulin Aspart (Novolog Insulin Pen) NOVOLOG *MILD* ALGORITHM WITH MEALS BEDTIME SC Last administered on 03/05/19at 12:40; Admin Dose 1 UNIT; Start 03/04/19 at 18:00 Amlodipine Besylate (Norvasc) 5 mg DAILY PO Last administered on 03/05/19at 08:50; Admin Dose 5 MG; Start 03/05/19 at 09:00 Aspirin (Halfprin) 81 mg DAILY PO Last administered on 03/05/19at 08:40; Admin Dose 81 MG; Start 03/05/19 at 09:00 Carvedilol (Coreg) 12.5 mg BID PO Last administered on 03/05/19at 08:50; Admin Dose 12.5 MG; Start 03/04/19 at 21:00 Insulin Aspart (Novolog Insulin Pen) 5 unit WITH MEALS SC Last administered on 03/05/19at 12:43; Admin Dose 5 UNIT; Start 03/04/19 at 18:00 Atorvastatin Calcium (Lipitor) 20 mg HS PO Last administered on 03/04/19at 20:54; Admin Dose 20 MG; Start 03/04/19 at 21:00 Miscellaneous Information 1 ea NOTE XX ; Start 03/04/19 at 13:30 Glucose (Glutose) 15 gm Q15M PRN PO DECREASED GLUCOSE; Start 03/04/19 at 13:30 Glucose (Glutose) 22.5 gm Q15M PRN PO DECREASED GLUCOSE; Start 03/04/19 at 13 :30 Dextrose (D50w Syringe) 25 ml Q15M PRN IV DECREASED GLUCOSE; Start 03/04/19 at 13:30 Dextrose (D50w Syringe) 50 ml Q15M PRN IV DECREASED GLUCOSE; Start 03/04/19 at 13:30 Glucagon (Glucagen) 1 mg Q15M PRN IM DECREASED GLUCOSE; Start 03/04/19 at 13:30 Glucose (Glutose) 15 gm Q15M PRN BUCCAL DECREASED GLUCOSE; Start 03/04/19 at 13:30 Oxycodone HCl (Roxicodone) 15 mg Q4H PRN PO PAIN; Start 03/04/19 at 14:00 Pantoprazole (Protonix Tab) 40 mg DAILY@06 PO Last administered on 03/05/19at 05:51; Admin Dose 40 MG; Start 03/04/19 at 14:00 Sucralfate (Carafate Susp) 1 gm QID PO Last administered on 03/05/19at 12:37; Admin Dose 1 GM; Start 03/04/19 at 17:00 Docusate Sodium (Colace) 100 mg BID PO Last administered on 03/05/19at 08:40; Admin Dose 100 MG; Start 03/04/19 at 21:00 Polyethylene Glycol (Miralax) 17 gm DAILY PRN PO CONSTIPATION; Start 03/04/19 at 14:00 Bisacodyl (Dulcolax) 10 mg DAILY PRN PO CONSTIPATION; Start 5/10/19 at 14:00 Oxycodone HCl (Oxycontin) 40 mg Q12 PO Last administered on 03/05/19at 08:46; Admin Dose 40 MG; Start 03/04/19 at 21:00 Piperacillin Sod/ Tazobactam Sod 100 ml @ 200 mls/hr Q8 IVPB Last administered on 03/05/19at 14:50; Admin Dose 200 MLS/HR; Start 03/05/19 at 14:00 VTE Prophylaxis Risk score (from [facility] [place])>0 risk: 3 SCD applied (from [facility] [place]): No SCD contraindication: other Lines/Catheters IV Catheter Type: Alcocer in Place: No Assessment/Plan Hospital Course Subjective Patient doing okay however still complains of epigastric and right upper quadrant pain. Objective Physical exam General: Patient is laying in bed and answers questions appropriately, obese Mentation: Patient is alert and oriented 4, Head: Normocephalic atraumatic Eyes: EOMI, pupils reactive to light Neck: Supple, nontender, midline Respiratory: Clear to auscultation bilaterally Cardiovascular: regular rate, no obvious murmurs Gastrointestinal: Mild tenderness in the epigastric and right upper quadrant region bowel sounds heard. 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 The below assessment and plan is done without labs, stat labs have been ordered Acute on chronic left foot ulcer -Dr. Beckford is consulted for podiatry, ordered wound VAC -Broad-spectrum IV antibiotics -Infectious disease consulted Vague abdominal pain, more right upper quadrant today -Continues, CT does not show any signs of cholecystitis or other acute issue, does show some bilateral perinephric stranding however UTI is negative, only positive for large stool burden -We will attempt to address this in multiple ways, will attempt laxatives for constipation induced abdominal pain, will call GI for possible gastritis issues, will also get ultrasound gallbladder to confirm no cholecystitis. -Lipase yesterday and today are both negative Acute kidney injury versus chronic kidney disease -Nephrology consulted -Creatinine continues to increase, DC vancomycin, infectious disease notified will address appropriate antibiotics and add as needed Diabetes mellitus -Insulin while in house, adjust as needed Obstructive sleep apnea, -CPAP ordered at night Obesity -Chronic, monitor, dietary restriction advised Peripheral vascular disease -Follow-up outpatient with his multiple specialists Hypertension -Continue home meds History of pituitary tumor -Chronic, follows up with endocrinology in the outpatient setting Chronic anemia -Follows up with box hinge and lock attacher for CKD, continue to follow-up outpatient Chronic pain -Patient is on a very large regimen of opiate pain medication however patient is also a very large man, will be cautious with opiate administration however patient does appear trustworthy with dosages, cures database is not available at this time. Disposition -Continue with podiatry, infectious disease, nephrology, GI recommendations ANURAG TUCKER March 05, 2019 15:01
--- NOTE | 2019-03-05 15:52 | CONS ---
Assessment/Plan Assessment/Plan Hospital Course (Demo Recall) Abdominal pain - likely secondary to constipation Constipation Left foot ulcer Peripheral vascular disease Diabetes mellitus HTN Pituitary tumor Obstructive sleep apnea Obesity Altered mental status Plan: Continue bowel regimen when more awake. Per chart review and imaging pain seems more consistent with constipation. May try enemas when more awake. Continue to monitor mental status. Further recommendations based on clinical course. Patient seen in collaboration with Dr. Ledezma CC: STANLEY LEDEZMA MD ; Consultation Date/Type/Reason Admit Date/Time March 04, 2019 at 12:37 Date of Consultation: March 05, 2019 Type of Consult gastroenterology Reason for Consultation abdominal pain Requesting Provider: ANURAG TUCKER Date/Time of Note DATE: 03/05/19 TIME: 15:37 Hx of Present Illness Mr. 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 Per chart review, the patient had also been complaining of abdominal pain worse in different positions. The patient is currently lethargic and unable to answer questions. Information is obtained from chart review and past notes. Unable to obtain review of systems due to patient being lethargic. Subjective hx not possible: pt non-verbal, other (patient is lethagric, unable to answer questions) Past Medical History Home Meds Active Scripts Lactobacillus Acidophilus* (Lactinex*) 1 Tab Chew, 1 TAB PO BID, #14 TAB Prov:KALE,SANTO Caballero 01/25/19 Ciprofloxacin Hcl* (Ciprofloxacin Hcl*) 750 Mg Tablet, 750 MG PO BID, #10 TAB Prov:LACIE HENLEYRos Colindres. 01/25/19 Amlodipine Besylate* (Norvasc*) 5 Mg Tablet, 5 MG PO DAILY, #30 TAB 1 Refill Prov:GAGE HENLEYRICO Colindres. 01/25/19 Benazepril Hcl* (Benazepril Hcl*) 10 Mg Tablet, 10 MG PO DAILY, #30 TAB 1 Refill Prov:KALESANTO Caballero 01/25/19 Insulin Aspart* (Novolog Insulin Pen*) 100 Unit/Ml Soln, 14 UNIT SC WITH MEALS, #13 VIAL 1 Refill Prov:SANTO HENLEY. 01/25/19 Insulin Glargine* (Lantus*) 100 Unit/Ml Soln, 40 UNIT SC HS, #12 VIAL 1 Refill Prov:SANTO HENLEY. 01/25/19 Reported Medications Spironolactone* (Aldactone*) 25 Mg Tablet, 25 MG PO DAILY, #30 TAB 01/23/19 Oxycodone Hcl* (Oxycontin*) 80 Mg Tab.er.12h, 80 MG PO Q12, TAB 01/23/19 Bumetanide* (Bumetanide*) 2 Mg Tablet, 2 MG PO DAILY, TAB 01/23/19 Carvedilol* (Carvedilol*) 12.5 Mg Tablet, 12.5 MG PO BID, TAB 11/16/14 Simvastatin (Simvastatin) 40 Mg Tablet, 40 MG PO HS, TAB 11/16/14 Aspirin* (Aspirin* EC) 81 Mg Tablet.dr, 81 MG PO DAILY, TAB 11/16/14 Gabapentin* (Gabapentin*) 400 Mg Capsule, 400 MG PO TID, CAP 11/16/14 Oxycodone Hcl* (IR) (Oxycodone Hcl*) 15 Mg Tablet, 15 MG PO Q4H PRN for PAIN, TAB 11/16/14 Medications Current Medications IV Flush (NS 3 ml) 3 ml PER PROTOCOL IV ; Start 03/04/19 at 13:00 Ondansetron HCl (Zofran Inj) 4 mg Q6H PRN IV NAUSEA/VOMITING; Start 03/04/19 at 13:00 Acetaminophen (Tylenol Tab) 650 mg Q6H PRN PO .PAIN 1-3 OR TEMP; Start 03/04/19 at 13:00 Morphine Sulfate (morphine) 2 mg Q4H PRN IV .PAIN 7-10 Last administered on 03/05/19at 06:27; Admin Dose 2 MG; Start 03/04/19 at 13:00 Diagnostic Test (Pha) (Accu-Chek) 1 02 XX ; Start 03/05/19 at 02:00 Insulin Glargine (Lantus) 30 units DAILY@2000 SC Last administered on 03/04/19at 20:57; Admin Dose 30 UNITS; Start 03/04/19 at 20:00 Insulin Aspart (Novolog Insulin Pen) NOVOLOG *MILD* ALGORITHM WITH MEALS BEDTIME SC Last administered on 03/05/19at 12:40; Admin Dose 1 UNIT; Start 03/04/19 at 18:00 Amlodipine Besylate (Norvasc) 5 mg DAILY PO Last administered on 03/05/19at 08:50; Admin Dose 5 MG; Start 03/05/19 at 09:00 Aspirin (Halfprin) 81 mg DAILY PO Last administered on 03/05/19at 08:40; Admin Dose 81 MG; Start 03/05/19 at 09:00 Carvedilol (Coreg) 12.5 mg BID PO Last administered on 03/05/19at 08:50; Admin Dose 12.5 MG; Start 03/04/19 at 21:00 Insulin Aspart (Novolog Insulin Pen) 5 unit WITH MEALS SC Last administered on 03/05/19at 12:43; Admin Dose 5 UNIT; Start 03/04/19 at 18:00 Atorvastatin Calcium (Lipitor) 20 mg HS PO Last administered on 03/04/19at 20:54; Admin Dose 20 MG; Start 03/04/19 at 21:00 Miscellaneous Information 1 ea NOTE XX ; Start 03/04/19 at 13:30 Glucose (Glutose) 15 gm Q15M PRN PO DECREASED GLUCOSE; Start 03/04/19 at 13:30 Glucose (Glutose) 22.5 gm Q15M PRN PO DECREASED GLUCOSE; Start 03/04/19 at 13:30 Dextrose (D50w Syringe) 25 ml Q15M PRN IV DECREASED GLUCOSE; Start 03/04/19 at 13:30 Dextrose (D50w Syringe) 50 ml Q15M PRN IV DECREASED GLUCOSE; Start 03/04/19 at 13:30 Glucagon (Glucagen) 1 mg Q15M PRN IM DECREASED GLUCOSE; Start 03/04/19 at 13:30 Glucose (Glutose) 15 gm Q15M PRN BUCCAL DECREASED GLUCOSE; Start 03/04/19 at 13:30 Oxycodone HCl (Roxicodone) 15 mg Q4H PRN PO PAIN; Start 03/04/19 at 14:00 Pantoprazole (Protonix Tab) 40 mg DAILY@06 PO Last administered on 03/05/19at 05 :51; Admin Dose 40 MG; Start 03/04/19 at 14:00 Sucralfate (Carafate Susp) 1 gm QID PO Last administered on 03/05/19at 12:37; Admin Dose 1 GM; Start 03/04/19 at 17:00 Docusate Sodium (Colace) 100 mg BID PO Last administered on 03/05/19at 08:40; Admin Dose 100 MG; Start 03/04/19 at 21:00 Polyethylene Glycol (Miralax) 17 gm DAILY PRN PO CONSTIPATION; Start 03/04/19 at 14:00 Bisacodyl (Dulcolax) 10 mg DAILY PRN PO CONSTIPATION; Start 03/04/19 at 14:00 Oxycodone HCl (Oxycontin) 40 mg Q12 PO Last administered on 03/05/19at 08:46; Admin Dose 40 MG; Start 03/04/19 at 21:00 Piperacillin Sod/ Tazobactam Sod 100 ml @ 200 mls/hr Q8 IVPB Last administered on 03/05/19at 14:50; Admin Dose 200 MLS/HR; Start 03/05/19 at 14:00 Allergies: Coded Allergies: No Known Allergies (Verified Allergy, Unknown, 07/02/17) Past Surgical History Past Surgical Hx: other Social History Smoking Status: Never smoker Exam/Review of Systems Exam Vitals Vital Signs Date Temp Pulse Resp B/P (MAP) Pulse Ox O2 O2 Flow FiO2 Time Delivery Rate 03/05/19 98.4 64 18 111/58 97 14:00 (75) 03/05/19 30 05:18 03/04/19 2.0 20:02 Intake and Output 03/04/19 03/04/19 03/05/19 1515:00 23:00 07:00 IntakeIntake Total 840 ml 1170 ml OutputOutput Total 400 ml BalanceBalance 840 ml 770 ml Constitutional: obese, other (lethargic) Psych: other (lethargic) Head: normocephalic, atraumatic ENMT: nl external ears & nose Neck: supple Respiratory: clear to auscultation Gastrointestinal: soft, distended (mild distention, tympany), other (rotund) Musculoskeletal: nl extremities to inspection Extremities: other (left foot ulcer connect to wound vac) Neurological: lethargic Results Result Diagram: 03/05/19 0603/05/19 06 Results 24hrs Laboratory Tests Test 03/04/19 17:39 03/04/19 20:52 03/04/19 23:23 03/05/19 01:36 Bedside Glucose 166 183 234 H Urine Color YELLOW Urine Clarity SLIGHTLY CLOUDY A Urine pH 5.0 Urine Specific 1.013 [place] Urine Ketones TRACE A Urine Nitrite NEGATIVE Urine Bilirubin NEGATIVE Urine NEGATIVE Urobilinogen Urine Leukocyte NEGATIVE Esterase Urine Microscopic 2 RBC Urine Microscopic 3 WBC Urine Squamous FEW Epithelial Cells Urine Hyaline FEW A Casts Urine Hemoglobin NEGATIVE Urine Random 179.10 Creatinine Urine Random 48 Sodium Urine Glucose NEGATIVE Urine Total NEGATIVE Protein Test 03/05/19 06:26 03/05/19 08:39 03/05/19 11:18 03/05/19 12:37 White Blood Count 8.0 # Red Blood Count 3.45 L Hemoglobin 9.5 L Hematocrit 31.2 L Mean Corpuscular 90.4 Volume Mean Corpuscular 27.5 L Hemoglobin Mean Corpuscular 30.4 L Hemoglobin Concen t Red Cell 16.0 H Distribution Width Platelet Count 170 Mean Platelet 12.7 H Volume Immature 0.300 Granulocytes % Neutrophils % 69.0 Lymphocytes % 19.8 Monocytes % 8.8 Eosinophils % 1.6 Basophils % 0.5 Nucleated Red 0.0 Blood Cells % Immature 0.020 Granulocytes # Neutrophils # 5.5 Lymphocytes # 1.6 Monocytes # 0.7 Eosinophils # 0.1 Basophils # 0.0 Nucleated Red 0.0 Blood Cells # Sodium Level 140 Potassium Level 5.2 H Chloride Level 99 Carbon Dioxide 33 H Level Anion Gap 8 Blood Urea 55 H Nitrogen Creatinine 4.10 H Est Glomerular 15 L Filtrat Rate mL/min Glucose Level 184 Hemoglobin A1c 9.8 H Calcium Level 8.0 L Phosphorus Level 6.2 H Magnesium Level 2.2 Total Bilirubin 0.4 Direct Bilirubin 0.00 Indirect 0.4 Bilirubin Aspartate Amino 28 Transf (AST/SGOT) Alanine 23 Aminotransferase (ALT/SGPT) Alkaline 66 Phosphatase Total Protein 7.3 Albumin 3.4 Globulin 3.90 H Albumin/Globulin 0.87 Ratio Triglycerides 77 Level Cholesterol Level 97 L LDL Cholesterol, 43 Calculated HDL Cholesterol 39 Cholesterol/HDL 2.4 Ratio Thyroid 1.190 Stimulating Hormone (TSH) Bedside Glucose 198 163 Absolute 0.064 Reticulocyte Count Percent 1.8 H Reticulocyte Count Lactic Acid Level 1.1 Iron Level 74 Total Iron 340 Binding Capacity Percent Iron 22 Saturation Lipase [address] abdomen pelvis 03/04/19 \IMPRESSION: 1. Substantial stool seen in the right and transverse colon without evidence of bowel obstruction or inflammation and with a normal-appearing vermiform appendix . 2. Hepatomegaly with no focal lesion. 3. There is mild bilateral perinephric stranding but there is no intra renal mass, calcification or evidence of urinary outflow obstruction. The ureters and suboptimally distended bladder appear unremarkable. 4. There is no free intraperitoneal fluid or air. There is a mild fat containing umbilical hernia with stranding seen within the periumbilical anter ior subcutaneous fat compatible with edema or inflammation. There is diastases recti. 5. Fatty infiltrated pancreas with no focal lesion. 6. Atherosclerotic vascular calcification. 7. Bilateral prominent inguinal nodes with the largest measuring 2.1 cm in short diameter seen on the left. 8. Moderate degenerative enthesopathy of the visualized spine. Medications Medication Current Medications IV Flush (NS 3 ml) 3 ml PER PROTOCOL IV ; Start 03/04/19 at 13:00 Ondansetron HCl (Zofran Inj) 4 mg Q6H PRN IV NAUSEA/VOMITING; Start 03/04/19 at 13:00 Acetaminophen (Tylenol Tab) 650 mg Q6H PRN PO .PAIN 1-3 OR TEMP; Start 03/04/19 at 13:00 Morphine Sulfate (morphine) 2 mg Q4H PRN IV .PAIN 7-10 Last administered on 03/05/19at 06:27; Admin Dose 2 MG; Start 03/04/19 at 13:00 Diagnostic Test (Pha) (Accu-Chek) 1 ea 02 XX ; Start 03/05/19 at 02:00 Insulin Glargine (Lantus) 30 units DAILY@2000 SC Last administered on 03/04/19at 20:57; Admin Dose 30 UNITS; Start 03/04/19 at 20:00 Insulin Aspart (Novolog Insulin Pen) NOVOLOG *MILD* ALGORITHM WITH MEALS BEDTIME SC Last administered on 03/05/19at 12:40; Admin Dose 1 UNIT; Start 03/04/19 at 18:00 Amlodipine Besylate (Norvasc) 5 mg DAILY PO Last administered on 03/05/19at 08:50; Admin Dose 5 MG; Start 03/05/19 at 09:00 Aspirin (Halfprin) 81 mg DAILY PO Last administered on 03/05/19at 08:40; Admin Dose 81 MG; Start 03/05/19 at 09:00 Carvedilol (Coreg) 12.5 mg BID PO Last administered on 03/05/19at 08:50; Admin Dose 12.5 MG; Start 03/04/19 at 21:00 Insulin Aspart (Novolog Insulin Pen) 5 unit WITH MEALS SC Last administered on 03/05/19at 12:43; Admin Dose 5 UNIT; Start 03/04/19 at 18:00 Atorvastatin Calcium (Lipitor) 20 mg HS PO Last administered on 03/04/19at 20:54; Admin Dose 20 MG; Start 03/04/19 at 21:00 Miscellaneous Information 1 ea NOTE XX ; Start 03/04/19 at 13:30 Glucose (Glutose) 15 gm Q15M PRN PO DECREASED GLUCOSE; Start 03/04/19 at 13:30 Glucose (Glutose) 22.5 gm Q15M PRN PO DECREASED GLUCOSE; Start 03/04/19 at 13:30 Dextrose (D50w Syringe) 25 ml Q15M PRN IV DECREASED GLUCOSE; Start 03/04/19 at 13:30 Dextrose (D50w Syringe) 50 ml Q15M PRN IV DECREASED GLUCOSE; Start 03/04/19 at 13:30 Glucagon (Glucagen) 1 mg Q15M PRN IM DECREASED GLUCOSE; Start 03/04/19 at 13:30 Glucose (Glutose) 15 gm Q15M PRN BUCCAL DECREASED GLUCOSE; Start 03/04/19 at 13:30 Oxycodone HCl (Roxicodone) 15 mg Q4H PRN PO PAIN; Start 03/04/19 at 14:00 Pantoprazole (Protonix Tab) 40 mg DAILY@06 PO Last administered on 03/05/19at 05:51; Admin Dose 40 MG; Start 03/04/19 at 14:00 Sucralfate (Carafate Susp) 1 gm QID PO Last administered on 03/05/19at 12:37; Admin Dose 1 GM; Start 03/04/19 at 17:00 Docusate Sodium (Colace) 100 mg BID PO Last administered on 03/05/19at 08:40; Admin Dose 100 MG; Start 03/04/19 at 21:00 Polyethylene Glycol (Miralax) 17 gm DAILY PRN PO CONSTIPATION; Start 5/10/19 at 14:00 Bisacodyl (Dulcolax) 10 mg DAILY PRN PO CONSTIPATION; Start 03/04/19 at 14:00 Oxycodone HCl (Oxycontin) 40 mg Q12 PO Last administered on 03/05/19at 08:46; Admin Dose 40 MG; Start 03/04/19 at 21:00 Piperacillin Sod/ Tazobactam Sod 100 ml @ 200 mls/hr Q8 IVPB Last administered on 03/05/19at 14:50; Admin Dose 200 MLS/HR; Start 03/05/19 at 14:00 MAU CASTRO NP March 05, 2019 15:51
[2019-03-05] MEDS ORDERED: ALBUTEROL/IPRATROPIUM (NEB) 3 ML AMP HHN PRN (16:00)
[2019-03-05] MEDS ORDERED: MINERAL OIL 133 ML ENEMA PR PRN (17:00)
[2019-03-05] MEDS ORDERED: POLYETHYLENE GLYCOL 17 GM PACKET PO ONE (17:00)
[2019-03-05] MEDS ORDERED: BISACODYL 10 MG SUPP PR ONE (17:00)
[2019-03-05] MEDS: ALBUTEROL/IPRATROPIUM (NEB) 3 ML AMP HHN SCH ×2 (17:35→20:59)
--- NOTE | 2019-03-05 18:49 | CONS ---
Assessment/Plan Assessment/Plan Hospital Course (Demo Recall) ID PROGRESS NOTE CURRENT ABX: DAY #=> Zosyn s/p Vanco IV 03/05/19 0626 03/05/19 0626 24H INTERVAL SUMMARY * 53 yo male admitted for non healing, worsening left heel ulcer. Patient is now on wound VAC and IV ABX * Hx of CoNS & PSAR left heel Cx DECEMBER 2018 IMAGING * 03/05/19 CXR: Mild Cardiomegaly. Mild left lower lobe linear atelectasis. * 03/05/19 LIVER US: Limited study due to the patient's body habitus and inability to cooperate.Gallbladder is contracted and not well seen. Small stones cannot be excluded.Mild hepatomegaly with fatty liver. Pancreas and CBD not visualized. * CT A-P: * 1. Substantial stool seen in the right and transverse colon without evidence of bowel obstruction or inflammation and with a normal-appearing vermiform appendix. * 2. Hepatomegaly with no focal lesion. * 3. There is mild bilateral perinephric stranding but there is no intra renal mass, calcification or evidence of urinary outflow obstruction. The ureters and suboptimally distended bladder appear unremarkable. * 4. There is no free intraperitoneal fluid or air. There is a mild fat containing umbilical hernia with stranding seen within the periumbilical a nterior subcutaneous fat compatible with edema or inflammation. There is diastases recti. * 5. Fatty infiltrated pancreas with no focal lesion. * 6. Atherosclerotic vascular calcification. * 7. Bilateral prominent inguinal nodes with the largest measuring 2.1 cm in short diameter seen on the left. * 8. Moderate degenerative enthesopathy of the visualized spine. MICRO/OTHER * * 03/04/19 BCX: (-) PHYSICAL EXAMINATION: GENERAL: VSS, NAD HEENT: AT, NC, anicteric, NECK: Supple, CHEST: Equal chest rise bilaterally without dyspnea on observation HEART: Pulse RRR ABDOMEN: soft EXTREMITIES: Warm, dry SKIN: No rash, no diaphoresis ID ASSESSMENT 53 yo M admit with: Left foot ulcer -> non-healing failed OP ABX * Admit for IV ABX + Wound Vac Tx Peripheral vascular disease Diabetes mellitus SAI -- on Vanco IV + Zosyn combo Abdominal pain - likely secondary to constipation Constipation HTN Pituitary tumor Obstructive sleep apnea Obesity Altered mental status =>Pain meds onboard (-)MRSA Nares ABX ALLERGIES: KNDA INVASIVES: PIV CURRENT ABX: DAY # => Vanco IV + Zosyn ID RECOMMENDATIONS/PLAN: 1. Vanco IV DC'd = SAI 2. Monitor renal fx == renal dose Zosyn . Consultation Date/Type/Reason Admit Date/Time March 04, 2019 at 12:37 Initial Consult Date 03/05/19 Requesting Provider: ANURAG TUCKER Date/Time of Note DATE: 03/05/19 TIME: 18:49 Exam/Review of Systems Exam Vitals Vital Signs Date Temp Pulse Resp B/P (MAP) Pulse Ox O2 O2 Flow FiO2 Time Delivery Rate 03/05/19 2.0 17:38 03/05/19 64 18 Nasal 17:38 Cannula 03/05/19 98.4 111/58 97 14:00 (75) 03/05/19 30 05:18 Intake and Output 03/04/19 03/04/19 03/05/19 1515:00 23:00 07:00 IntakeIntake Total 840 ml 1170 ml OutputOutput Total 400 ml BalanceBalance 840 ml 770 ml Results Result Diagram: 03/05/19 0626 03/05/19 0626 Results 24hrs Laboratory Tests Test 03/04/19 20:52 03/04/19 23:23 03/05/19 01:36 03/05/19 06:26 Bedside Glucose 183 234 H Urine Color YELLOW Urine Clarity SLIGHTLY CLOUDY A Urine pH 5.0 Urine Specific 1.013 [place] Urine Ketones TRACE A Urine Nitrite NEGATIVE Urine Bilirubin NEGATIVE Urine NEGATIVE Urobilinogen Urine Leukocyte NEGATIVE Esterase Urine 2 Microscopic RBC Urine 3 Microscopic WBC Urine Squamous FEW Epithelial Cells Urine Hyaline FEW A Casts Urine Hemoglobin NEGATIVE Urine Random 179.10 Creatinine Urine Random 48 Sodium Urine Glucose NEGATIVE Urine Total NEGATIVE Protein White Blood 8.0 # Count Red Blood Count 3.45 L Hemoglobin 9.5 L Hematocrit 31.2 L Mean Corpuscular 90.4 Volume Mean Corpuscular 27.5 L Hemoglobin Mean Corpuscular 30.4 L Hemoglobin Nancy nt Red Cell 16.0 H Distribution Width Platelet Count 170 Mean Platelet 12.7 H Volume Immature 0.300 Granulocytes % Neutrophils % 69.0 Lymphocytes % 19.8 Monocytes % 8.8 Eosinophils % 1.6 Basophils % 0.5 Nucleated Red 0.0 Blood Cells % Immature 0.020 Granulocytes # Neutrophils # 5.5 Lymphocytes # 1.6 Monocytes # 0.7 Eosinophils # 0.1 Basophils # 0.0 Nucleated Red 0.0 Blood Cells # Sodium Level 140 Potassium Level 5.2 H Chloride Level 99 Carbon Dioxide 33 H Level Anion Gap 8 Blood Urea 55 H Nitrogen Creatinine 4.10 H Est Glomerular 15 L Filtrat Rate mL/min Glucose Level 184 Hemoglobin A1c 9.8 H Calcium Level 8.0 L Phosphorus Level 6.2 H Magnesium Level 2.2 Total Bilirubin 0.4 Direct Bilirubin 0.00 Indirect 0.4 Bilirubin Aspartate Amino 28 Transf (AST/SGOT ) Alanine 23 Aminotransferase (ALT/SGPT) Alkaline 66 Phosphatase Total Protein 7.3 Albumin 3.4 Globulin 3.90 H Albumin/Globulin 0.87 Ratio Triglycerides 77 Level Cholesterol 97 L Level LDL Cholesterol, 43 Calculated HDL Cholesterol 39 Cholesterol/HDL 2.4 Ratio Thyroid 1.190 Stimulating Hormone (TSH) Test 03/05/19 08:39 03/05/19 11:18 03/05/19 12:37 03/05/19 16:00 Bedside Glucose 198 163 Absolute 0.064 Reticulocyte Count Percent 1.8 H Reticulocyte Count Lactic Acid 1.1 Level Iron Level 74 Total Iron 340 Binding Capacity Percent Iron 22 Saturation Lipase 34 Blood Gas Blood arterial Specimen Source Arterial Blood 03/05/2019 5:09: Date Drawn 21 PM Arterial Blood 7.369 pH (Temp corrected) Arterial Blood 53.2 H pCO2 (Temp correct) Arterial Blood 58.0 L pO2 (Temp corrected) Arterial Blood 30.0 H HCO3 Arterial Blood 3.8 H Base Excess Arterial Blood 87.4 L Oxygen Saturatio n Jose Antonio Test ACCEPTAB Arterial Blood Right Radial Gas Puncture Site Arterial 0.5 Blood Carboxyhem oglobin Arterial Blood 0.3 Methemoglobin Blood Gas A-a O2 71.6 H Differential Oxyhemoglobin 86.7 L Percent Blood Gas 37.0 Temperature Blood Gas NASAL CANNULA Modality FiO2 27.0 Blood Gas Ada [facility] Notified Whom Blood Gas 03/05/2019 5:22: Notified Time 43 PM Test 03/05/19 17:46 Bedside Glucose 179 Medications Medication Current Medications IV Flush (NS 3 ml) 3 ml PER PROTOCOL IV ; Start 03/04/19 at 13:00 Ondansetron HCl (Zofran Inj) 4 mg Q6H PRN IV NAUSEA/VOMITING; Start 03/04/19 at 13:00 Acetaminophen (Tylenol Tab) 650 mg Q6H PRN PO .PAIN 1-3 OR TEMP; Start 03/04/19 at 13:00 Morphine Sulfate (morphine) 2 mg Q4H PRN IV .PAIN 7-10 Last administered on 03/05/19 06:27; Admin Dose 2 MG; Start 03/04/19 at 13:00; Status Hold Diagnostic Test (Pha) (Accu-Chek) 1 ea 02 XX ; Start 03/05/19 at 02:00 Insulin Glargine (Lantus) 30 units DAILY@2000 SC Last administered on 03/04/19 20:57; Admin Dose 30 UNITS; Start 03/04/19 at 20:00 Insulin Aspart (Novolog Insulin Pen) NOVOLOG *MILD* ALGORITHM WITH MEALS BEDTIME SC Last administered on 03/05/19 17:56; Admin Dose 1 UNIT; Start 03/04/19 at 18:00 Amlodipine Besylate (Norvasc) 5 mg DAILY PO Last administered on 03/05/19 08:50; Admin Dose 5 MG; Start 03/05/19 at 09:00 Aspirin (Halfprin) 81 mg DAILY PO Last administered on 03/05/19 08:40; Admin Dose 81 MG; Start 03/05/19 at 09:00 Carvedilol (Coreg) 12.5 mg BID PO Last administered on 03/05/19 08:50; Admin Dose 12.5 MG; Start 03/04/19 at 21:00 Insulin Aspart (Novolog Insulin Pen) 5 unit WITH MEALS SC Last administered on 03/05/19 17:57; Admin Dose 5 UNIT; Start 03/04/19 at 18:00 Atorvastatin Calcium (Lipitor) 20 mg HS PO Last administered on 03/04/19 20:54; Admin Dose 20 MG; Start 03/04/19 at 21:00 Miscellaneous Information 1 ea NOTE XX ; Start 03/04/19 at 13:30 Glucose (Glutose) 15 gm Q15M PRN PO DECREASED GLUCOSE; Start 03/04/19 at 13:30 Glucose (Glutose) 22.5 gm Q15M PRN PO DECREASED GLUCOSE; Start 03/04/19 at 13: 30 Dextrose (D50w Syringe) 25 ml Q15M PRN IV DECREASED GLUCOSE; Start 03/04/19 at 13:30 Dextrose (D50w Syringe) 50 ml Q15M PRN IV DECREASED GLUCOSE; Start 03/04/19 at 13:30 Glucagon (Glucagen) 1 mg Q15M PRN IM DECREASED GLUCOSE; Start 03/04/19 at 13:30 Glucose (Glutose) 15 gm Q15M PRN BUCCAL DECREASED GLUCOSE; Start 03/04/19 at 13:30 Oxycodone HCl (Roxicodone) 15 mg Q4H PRN PO PAIN; Start 03/04/19 at 14:00; Status Hold Pantoprazole (Protonix Tab) 40 mg DAILY@06 PO Last administered on 03/05/19at 05:51; Admin Dose 40 MG; Start 03/04/19 at 14:00 Sucralfate (Carafate Susp) 1 gm QID PO Last administered on 03/05/19at 17:53; Admin Dose 1 GM; Start 03/04/19 at 17:00 Polyethylene Glycol (Miralax) 17 gm DAILY PRN PO CONSTIPATION; Start 03/04/19 at 14:00 Bisacodyl (Dulcolax) 10 mg DAILY PRN PO CONSTIPATION; Start 03/04/19 at 14:00 Oxycodone HCl (Oxycontin) 40 mg Q12 PO Last administered on 03/05/19at 08:46; Admin Dose 40 MG; Start 03/04/19 at 21:00; Status Hold Piperacillin Sod/ Tazobactam Sod 100 ml @ 200 mls/hr Q8 IVPB Last administered on 03/05/19at 14:50; Admin Dose 200 MLS/HR; Start 03/05/19 at 14:00 Albuterol/ Ipratropium (Duoneb) 3 ml Q6H RESP THERAPY HHN Last administered on 03/05/19at 17:35; Admin Dose 3 ML; Start 03/05/19 at 16:00 Albuterol/ Ipratropium (Duoneb) 3 ml Q2H RESP THERAPY PRN HHN SHORTNESS OF BREATH; Start 03/05/19 at 16:00 Docusate Sodium (Colace) 200 mg BID PO ; Start 03/05/19 at 21:00 Mineral Oil (Fleet Mineral Oil Enema) 133 ml DAILY PRN [place] constipation; Start 03/05/19 at 17:00 BIN QUEZADA NP March 05, 2019 18:49
[2019-03-05 19:45] VITALS: BP 90/61; PULSE 63; RESP 19
[2019-03-05] MEDS: INSULIN GLARGINE [LANTus] (100 UNITS/ML) SYG SC SCH (21:06)
[2019-03-05] MEDS: ATORVASTATIN 20 MG TAB PO SCH (21:12)
[2019-03-05] MEDS ORDERED: PIPER-TAZO 2.25 GM/NS 50 ML IVPB SCH (23:00)
[2019-03-06 02:00] VITALS: BP 104/59; PULSE 66; RESP 18
[2019-03-06] MEDS: ACCU-CHEK XX SCH (02:01)
[2019-03-06] MEDS: ALBUTEROL/IPRATROPIUM (NEB) 3 ML AMP HHN SCH ×4 (02:15→20:05)
[2019-03-06] MEDS: PIPER-TAZO 3.375 GM IV (PMX) 100 ML IVPB SCH ×4 (06:09→21:27)
[2019-03-06] MEDS: PANTOPRAZOLE (EC) 40 MG TAB PO SCH (06:14)
[2019-03-06 08:00] VITALS: BP 103/52; PULSE 60; RESP 18
[2019-03-06] MEDS: INSULIN ASPART [NOVOLOG] 3 ML PEN SC SCH ×7 (08:28→21:16)
[2019-03-06] MEDS: SUCRALFATE (100 MG/ML) 10ML CUP PO SCH ×4 (08:29→21:12)
[2019-03-06] MEDS: DOCUSATE SODIUM 100 MG CAP PO SCH ×2 (08:30→21:11)
[2019-03-06] MEDS: ASPIRIN (EC) 81 MG TAB PO SCH (08:33)
[2019-03-06] MEDS: AMLODIPINE 5 MG TAB PO SCH (08:33)
[2019-03-06] MEDS ORDERED: HYDROCODONE/APAP (5/325) TAB PO PRN (10:30)
--- NOTE | 2019-03-06 12:15 | CONS ---
Assessment/Plan Assessment/Plan Hospital Course (Demo Recall) 1. Nonoliguric acute kidney injury with previous baseline creatinine of 1.0 to 1.5 mg/dL. Etiology of current acute kidney injury is due to hemodynamics due to aldactone, KEVON inhibitor, diuretics. cont to hold the above medications. Otherwise, we will continue current plans, supportive care, renally dose all meds. 2. Lactic acidosis. Etiology may be secondary to sepsis, hemodynamics. C ontinue IV fluids. Continue antibiotic therapy. Monitor closely. We will trend lactic acid level. 3. Anemia. Monitor hemoglobin and hematocrit levels. 4. Mineral bone disorder. Monitor calcium and phosphatase levels. 5. Acute left foot ulcer. The patient is currently being followed by podiatry. Continue wound care. The patient is on antibiotic therapy. Monitor closely. 6. Diabetes. Continue current insulin regimen. 7. History of sleep apnea. Continue CPAP. 8. Obesity. Continue dietary modification. 9. History of peripheral vascular disease. Continue to monitor. 10. Hypertension. Monitor blood pressure closely. Blood pressure medications were adjusted to avoid hypotensive episode. 11. Chronic pain. Continue current pain regimen. Consultation Date/Type/Reason Admit Date/Time March 04, 2019 at 12:37 Initial Consult Date Requesting Provider: ANURAG TUCKER Date/Time of Note DATE: 03/06/19 TIME: 12:14 24 HR Interval Summary Free Text/Dictation denies shortness of breath, n/v or urinary issues d/w rn gen nad cv rrr pulm ctab abd soft, nd, nt +bs ext: no edema Exam/Review of Systems Exam Vitals Vital Signs Date Temp Pulse Resp B/P (MAP) Pulse Ox O2 O2 Flow FiO2 Time Delivery Rate 03/06/19 2.0 08:55 03/06/19 62 20 98 Nasal 08:55 Cannula 03/06/19 98.9 103/52 08:00 (69) 03/05/19 30 05:18 Intake and Output 03/05/19 03/05/19 03/06/19 1515:00 23:00 07:00 IntakeIntake Total 360 ml 560 ml OutputOutput Total 400 ml BalanceBalance 360 ml 160 ml Results Result Diagram: 03/06/19 0610 03/06/19 0610 Results 24hrs Laboratory Tests Test 03/05/19 12:37 5/11/19 16:00 03/05/19 17:46 03/05/19 20:10 Bedside Glucose 163 179 Blood Gas Blood arterial Specimen Source Arterial Blood 03/05/2019 5:09:2 Date Drawn 1 PM Arterial Blood pH 7.369 (Temp corrected) Arterial Blood 53.2 H pCO2 (Temp correct) Arterial Blood 58.0 L pO2 (Temp corrected) Arterial Blood 30.0 H HCO3 Arterial Blood 3.8 H Base Excess Arterial Blood 87.4 L Oxygen Saturation Jose Antonio Test ACCEPTAB Arterial Blood Right Radial Gas Puncture Site Arterial 0.5 Blood Carboxyhemo globin Arterial Blood 0.3 Methemoglobin Blood Gas A-a O2 71.6 H Differential Oxyhemoglobin 86.7 L Percent Blood Gas 37.0 Temperature Blood Gas NASAL CANNULA Modality FiO2 27.0 Blood Gas Ada SOLIS [facility] Notified Whom Blood Gas 03/05/2019 5:22:4 Notified Time 3 PM Urine Random 233.33 Creatinine Urine Random 30 Sodium Test 03/05/19 20:47 03/06/19 02:01 03/06/19 06:10 03/06/19 08:22 Bedside Glucose 211 167 189 White Blood Count 8.1 Red Blood Count 3.66 L Hemoglobin 10.2 L Hematocrit 32.7 L Mean Corpuscular 89.3 Volume Mean Corpuscular 27.9 L Hemoglobin Mean Corpuscular 31.2 L Hemoglobin Concen t Red Cell 16.0 H Distribution Width Platelet Count 171 Mean Platelet 11.5 H Volume Immature 0.600 H Granulocytes % Neutrophils % 59.2 Lymphocytes % 28.7 Monocytes % 9.0 Eosinophils % 2.0 Basophils % 0.5 Nucleated Red 0.0 Blood Cells % Immature 0.050 H Granulocytes # Neutrophils # 4.8 Lymphocytes # 2.3 Monocytes # 0.7 Eosinophils # 0.2 Basophils # 0.0 Nucleated Red 0.0 Blood Cells # Sodium Level 140 Potassium Level 4.9 Chloride Level 95 L Carbon Dioxide 35 H Level Anion Gap 10 Blood Urea 67 H Nitrogen Creatinine 3.89 H Est Glomerular 16 L Filtrat Rate mL/min Glucose Level 145 Calcium Level 8.1 L Phosphorus Level 5.7 H Magnesium Level 2.3 Medications Medication Current Medications IV Flush (NS 3 ml) 3 ml PER PROTOCOL IV ; Start 03/04/19 at 13:00 Ondansetron HCl (Zofran Inj) 4 mg Q6H PRN IV NAUSEA/VOMITING; Start 03/04/19 at 13:00 Acetaminophen (Tylenol Tab) 650 mg Q6H PRN PO .PAIN 1-3 OR TEMP; Start 03/04/19 at 13:00 Morphine Sulfate (morphine) 2 mg Q4H PRN IV .PAIN 7-10 Last administered on 03/05/19 06:27; Admin Dose 2 MG; Start 03/04/19 at 13:00; Status Hold Diagnostic Test (Pha) (Accu-Chek) 1 ea 02 XX Last administered on 03/06/19at 02:01; Admin Dose 1 EA; Start 03/05/19 at 02:00 Insulin Glargine (Lantus) 30 units DAILY@2000 SC Last administered on 03/05/19 21:06; Admin Dose 30 UNITS; Start 03/04/19 at 20:00 Insulin Aspart (Novolog Insulin Pen) NOVOLOG *MILD* ALGORITHM WITH MEALS BEDTIME SC Last administered on 03/06/19 08:28; Admin Dose 2 UNIT; Start 03/04/19 at 18:00 Amlodipine Besylate (Norvasc) 5 mg DAILY PO Last administered on 03/05/19 08:50; Admin Dose 5 MG; Start 03/05/19 at 09:00 Aspirin (Halfprin) 81 mg DAILY PO Last administered on 03/06/19 08:33; Admin Dose 81 MG; Start 03/05/19 at 09:00 Carvedilol (Coreg) 12.5 mg BID PO Last administered on 03/05/19 08:50; Admin Dose 12.5 MG; Start 03/04/19 at 21:00 Insulin Aspart (Novolog Insulin Pen) 5 unit WITH MEALS SC Last administered on 03/06/19 08:29; Admin Dose 5 UNIT; Start 03/04/19 at 18:00 Atorvastatin Calcium (Lipitor) 20 mg HS PO Last administered on 03/05/19 21:12; Admin Dose 20 MG; Start 03/04/19 at 21:00 Miscellaneous Information 1 ea NOTE XX ; Start 03/04/19 at 13:30 Glucose (Glutose) 15 gm Q15M PRN PO DECREASED GLUCOSE; Start 03/04/19 at 13:30 Glucose (Glutose) 22.5 gm Q15M PRN PO DECREASED GLUCOSE; Start 03/04/19 at 13:30 Dextrose (D50w Syringe) 25 ml Q15M PRN IV DECREASED GLUCOSE; Start 03/04/19 at 13:30 Dextrose (D50w Syringe) 50 ml Q15M PRN IV DECREASED GLUCOSE; Start 03/04/19 at 13:30 Glucagon (Glucagen) 1 mg Q15M PRN IM DECREASED GLUCOSE; Start 03/04/19 at 13:30 Glucose (Glutose) 15 gm Q15M PRN BUCCAL DECREASED GLUCOSE; Start 03/04/19 at 13:30 Oxycodone HCl (Roxicodone) 15 mg Q4H PRN PO PAIN; Start 03/04/19 at 14:00; Status Hold Pantoprazole (Protonix Tab) 40 mg DAILY@06 PO Last administered on 03/06/19at 06:14; Admin Dose 40 MG; Start 03/04/19 at 14:00 Sucralfate (Carafate Susp) 1 gm QID PO Last administered on 03/06/19at 08:29; Admin Dose 1 GM; Start 03/04/19 at 17:00 Polyethylene Glycol (Miralax) 17 gm DAILY PRN PO CONSTIPATION Last administered on 03/06/19at 11:02; Admin Dose 17 GM; Start 03/04/19 at 14:00 Bisacodyl (Dulcolax) 10 mg DAILY PRN PO CONSTIPATION Last administered on 02/23 12/14at 11:02; Admin Dose 10 MG; Start 03/04/19 at 14:00 Oxycodone HCl (Oxycontin) 40 mg Q12 PO Last administered on 03/05/19at 08:46; Admin Dose 40 MG; Start 03/04/19 at 21:00; Status Hold Piperacillin Sod/ Tazobactam Sod 100 ml @ 200 mls/hr Q8 IVPB Last administered on 03/06/19at 06:09; Admin Dose 200 MLS/HR; Start 03/05/19 at 14:00 Albuterol/ Ipratropium (Duoneb) 3 ml Q6H RESP THERAPY HHN Last administered on 03/06/19at 08:55; Admin Dose 3 ML; Start 03/05/19 at 16:00 Albuterol/ Ipratropium (Duoneb) 3 ml Q2H RESP THERAPY PRN HHN SHORTNESS OF BREATH; Start 03/05/19 at 16:00 Docusate Sodium (Colace) 200 mg BID PO Last administered on 03/06/19at 08:30; Admin Dose 200 MG; Start 03/05/19 at 21:00 Mineral Oil (Fleet Mineral Oil Enema) 133 ml DAILY PRN [place] constipation; Start 03/05/19 at 17:00 Acetaminophen/ Hydrocodone Bitart ([place] (5/325)) 1 tab Q12 PRN PO MODERATE PAIN LEVEL 4-6; Start 03/06/19 at 10:30 ALIX TUCKER MD March 06, 2019 12:15
--- NOTE | 2019-03-06 12:44 | PN ---
Date/Time of Note Date/Time of Note DATE: 03/06/19 TIME: 12:41 Objective Vitals Vital Signs Date Temp Pulse Resp B/P (MAP) Pulse Ox O2 O2 Flow FiO2 Time Delivery Rate 03/06/19 2.0 08:55 03/06/19 62 20 98 Nasal 08:55 Cannula 03/06/19 98.9 103/52 08:00 (69) 03/05/19 30 05:18 Intake and Output 03/05/19 03/05/19 03/06/19 1515:00 23:00 07:00 IntakeIntake Total 360 ml 560 ml OutputOutput Total 400 ml BalanceBalance 360 ml 160 ml Results Result Diagram: 03/06/1910 03/06/19 0610 Medications Medications Current Medications IV Flush (NS 3 ml) 3 ml PER PROTOCOL IV ; Start 03/04/19 at 13:00 Ondansetron HCl (Zofran Inj) 4 mg Q6H PRN IV NAUSEA/VOMITING; Start 03/04/19 at 13:00 Acetaminophen (Tylenol Tab) 650 mg Q6H PRN PO .PAIN 1-3 OR TEMP; Start 03/04/19 at 13:00 Morphine Sulfate (morphine) 2 mg Q4H PRN IV .PAIN 7-10 Last administered on 03/05/19at 06:27; Admin Dose 2 MG; Start 03/04/19 at 13:00; Status Hold Diagnostic Test (Pha) (Accu-Chek) 1 ea 02 XX Last administered on 03/06/19at 02:01; Admin Dose 1 EA; Start 03/05/19 at 02:00 Insulin Glargine (Lantus) 30 units DAILY@2000 SC Last administered on 03/05/19at 21:06; Admin Dose 30 UNITS; Start 03/04/19 at 20:00 Insulin Aspart (Novolog Insulin Pen) NOVOLOG *MILD* ALGORITHM WITH MEALS BEDTIME SC Last administered on 03/06/19at 12:21; Admin Dose 2 UNIT; Start 03/04/19 at 18:00 Amlodipine Besylate (Norvasc) 5 mg DAILY PO Last administered on 03/05/19 08:50; Admin Dose 5 MG; Start 03/05/19 at 09:00 Aspirin (Halfprin) 81 mg DAILY PO Last administered on 5/12/19at 08:33; Admin Dose 81 MG; Start 03/05/19 at 09:00 Carvedilol (Coreg) 12.5 mg BID PO Last administered on 03/05/19at 08:50; Admin Dose 12.5 MG; Start 03/04/19 at 21:00 Insulin Aspart (Novolog Insulin Pen) 5 unit WITH MEALS SC Last administered on 03/06/19at 12:21; Admin Dose 5 UNIT; Start 03/04/19 at 18:00 Atorvastatin Calcium (Lipitor) 20 mg HS PO Last administered on 03/05/19at 21:12; Admin Dose 20 MG; Start 03/04/19 at 21:00 Miscellaneous Information 1 ea NOTE XX ; Start 03/04/19 at 13:30 Glucose (Glutose) 15 gm Q15M PRN PO DECREASED GLUCOSE; Start 03/04/19 at 13:30 Glucose (Glutose) 22.5 gm Q15M PRN PO DECREASED GLUCOSE; Start 03/04/19 at 13:30 Dextrose (D50w Syringe) 25 ml Q15M PRN IV DECREASED GLUCOSE; Start 03/04/19 at 13:30 Dextrose (D50w Syringe) 50 ml Q15M PRN IV DECREASED GLUCOSE; Start 03/04/19 at 13:30 Glucagon (Glucagen) 1 mg Q15M PRN IM DECREASED GLUCOSE; Start 03/04/19 at 13:30 Glucose (Glutose) 15 gm Q15M PRN BUCCAL DECREASED GLUCOSE; Start 03/04/19 at 13:30 Oxycodone HCl (Roxicodone) 15 mg Q4H PRN PO PAIN; Start 03/04/19 at 14:00; Status Hold Pantoprazole (Protonix Tab) 40 mg DAILY@06 PO Last administered on 03/06/19at 06:14; Admin Dose 40 MG; Start 03/04/19 at 14:00 Sucralfate (Carafate Susp) 1 gm QID PO Last administered on 03/06/19at 12:19; Admin Dose 1 GM; Start 03/04/19 at 17:00 Polyethylene Glycol (Miralax) 17 gm DAILY PRN PO CONSTIPATION Last administered on 03/06/19at 11:02; Admin Dose 17 GM; Start 03/04/19 at 14:00 Bisacodyl (Dulcolax) 10 mg DAILY PRN PO CONSTIPATION Last administered on 11:02; Admin Dose 10 MG; Start 03/04/19 at 14:00 Oxycodone HCl (Oxycontin) 40 mg Q12 PO Last administered on 03/05/19at 08:46; Admin Dose 40 MG; Start 03/04/19 at 21:00; Status Hold Piperacillin Sod/ Tazobactam Sod 100 ml @ 200 mls/hr Q8 IVPB Last administered on 03/06/19 06:09; Admin Dose 200 MLS/HR; Start 03/05/19 at 14:00 Albuterol/ Ipratropium (Duoneb) 3 ml Q6H RESP THERAPY HHN Last administered on 03/06/19 08:55; Admin Dose 3 ML; Start 03/05/19 at 16:00 Albuterol/ Ipratropium (Duoneb) 3 ml Q2H RESP THERAPY PRN HHN SHORTNESS OF BREATH; Start 03/05/19 at 16:00 Docusate Sodium (Colace) 200 mg BID PO Last administered on 03/06/19 08:30; Admin Dose 200 MG; Start 03/05/19 at 21:00 Mineral Oil (Fleet Mineral Oil Enema) 133 ml DAILY PRN [place] constipation Last administered on 03/06/19 12:22; Admin Dose 133 ML; Start 03/05/19 at 17:00 Acetaminophen/ Hydrocodone Bitart ([place] (5/325)) 1 tab Q12 PRN PO MODERATE PAIN LEVEL 4-6; Start 03/06/19 at 10:30 VTE Prophylaxis Risk score (from Ns)>0 risk: 3 SCD applied (from Ns): No SCD contraindication: other Lines/Catheters IV Catheter Type: Alcocer in Place: No Assessment/Plan Hospital Course Subjective Patient doing okay however still complains of epigastric and right upper quad rant pain. but a lot better than yesterday, still no BM. Objective Physical exam General: Patient is laying in bed and answers questions appropriately, obese Mentation: Patient is alert and oriented 4, Head: Normocephalic atraumatic Eyes: EOMI, pupils reactive to light Neck: Supple, nontender, midline Respiratory: Clear to auscultation bilaterally Cardiovascular: regular rate, no obvious murmurs Gastrointestinal: Mild tenderness in the epigastric and right upper quadrant region bowel sounds heard. 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 The below assessment and plan is done without labs, stat labs have been ordered Acute on chronic left foot ulcer -Dr. Beckford is consulted for podiatry, ordered wound VAC -Broad-spectrum IV antibiotics -Infectious disease consulted Vague abdominal pain -Continues, CT does not show any signs of cholecystitis or other acute issue, does show some bilateral perinephric stranding however UTI is negative, only positive for large stool burden -We will attempt to address this in multiple ways, will attempt laxatives for constipation induced abdominal pain, GI also believes it is constipation as well, will need to relieve patient of stool burden before other etiologies of abdominal pain is investigated -Lipase negative Acute kidney injury versus chronic kidney disease -Nephrology consulted -Creatinine continues to increase, DC vancomycin, infectious disease notified, will address appropriate antibiotics and add as needed -hold bumex Diabetes mellitus -Insulin while in house, adjust as needed Obstructive sleep apnea, -CPAP ordered at night Obesity -Chronic, monitor, dietary restriction advised Peripheral vascular disease -Follow-up outpatient with his multiple specialists Hypertension -Continue home meds History of pituitary tumor -Chronic, follows up with endocrinology in the outpatient setting Chronic anemia -Follows up with loss control consultant for CKD, continue to follow-up outpatient Chronic pain -Patient is on a very large regimen of opiate pain medication however patient is also a very large man, will be cautious with opiate administration however patient does appear trustworthy with dosages, cures database is not available at this time. -Patient having worsening respiratory drive, found hypoxic yesterday, now on n fiordaliza cannula, opiates were held for the past 24 hours but do not want to cause opiate withdrawal as patient is chronically on high doses of opiates, will restart opiates however very low dose of [place] for now and titrate up as tolerated. Disposition -Continue with podiatry, infectious disease, nephrology, GI recommendations ANURAG TUCKER March 06, 2019 12:44
[2019-03-06] MEDS ORDERED: MAGNESIUM CITRATE 300 ML BTL PO ONE (14:00)
--- NOTE | 2019-03-06 14:17 | PN ---
Date/Time of Note Date/Time of Note DATE: 03/06/19 TIME: 14:08 Assessment/Plan VTE Prophylaxis Risk score (from Ns)>0 risk: 3 SCD applied (from Ns): No SCD contraindicated: bilateral LE trauma Pharmacological prophylaxis: heparin Lines/Catheters IV Catheter Type (from Nrsg): Urinary Cath still in place: No Assessment/Plan Assessment/Plan Abdominal pain - likely secondary to constipation Constipation likely due to narcotic pain medication use -CT abdomen/pelvis with heavy stool burden in right and transverse colon 03/04/19 Left foot ulcer Peripheral vascular disease Diabetes mellitus HTN Pituitary tumor Obstructive sleep apnea Obesity Altered mental status - resolved Plan: Continue bowel regimen Abdominal US limited by patient's body habitus and inability to cooperate. May consider HIDA scan if abdominal pain worsens. Continue current treatment plan. Further recommendations based on clinical course. Patient seen in collaboration with Dr. Ledezma Subjective: Patient is more alert today. He described he had right upper quadrant and epigastric abdominal pain for the past several days, though now it is somewhat better after having a bowel movement. He denies nausea or vomiting. He is tolerating his diet. Result Diagram: 03/06/19 0610 03/06/19 0610 Results 24hrs Laboratory Tests Test 03/05/19 16:00 03/05/19 17:46 03/05/19 20:10 03/05/19 20:47 Blood Gas Blood arterial Specimen Source Arterial Blood 03/05/2019 5:09:2 Date Drawn 1 PM Arterial Blood pH 7.369 (Temp corrected) Arterial Blood 53.2 H pCO2 (Temp correct) Arterial Blood 58.0 L pO2 (Temp corrected) Arterial Blood 30.0 H HCO3 Arterial Blood 3.8 H Base Excess Arterial Blood 87.4 L Oxygen Saturation Jose Antonio Test ACCEPTAB Arterial Blood Right Radial Gas Puncture Site Arterial 0.5 Blood Carboxyhemo globin Arterial Blood 0.3 Methemoglobin Blood Gas A-a O2 71.6 H Differential Oxyhemoglobin 86.7 L Percent Blood Gas 37.0 Temperature Blood Gas NASAL CANNULA Modality FiO2 27.0 Blood Gas Ada SOLIS [facility] Notified Whom Blood Gas 03/05/2019 5:22:4 Notified Time 3 PM Bedside Glucose 179 211 Urine Random 233.33 Creatinine Urine Random 30 Sodium Test 03/06/19 02:01 03/06/19 06:10 03/06/19 08:22 03/06/19 12:18 Bedside Glucose 167 189 195 White Blood Count 8.1 Red Blood Count 3.66 L Hemoglobin 10.2 L Hematocrit 32.7 L Mean Corpuscular 89.3 Volume Mean Corpuscular 27.9 L Hemoglobin Mean Corpuscular 31.2 L Hemoglobin Concen t Red Cell 16.0 H Distribution Width Platelet Count 171 Mean Platelet 11.5 H Volume Immature 0.600 H Granulocytes % Neutrophils % 59.2 Lymphocytes % 28.7 Monocytes % 9.0 Eosinophils % 2.0 Basophils % 0.5 Nucleated Red 0.0 Blood Cells % Immature 0.050 H Granulocytes # Neutrophils # 4.8 Lymphocytes # 2.3 Monocytes # 0.7 Eosinophils # 0.2 Basophils # 0.0 Nucleated Red 0.0 Blood Cells # Sodium Level 140 Potassium Level 4.9 Chloride Level 95 L Carbon Dioxide 35 H Level Anion Gap 10 Blood Urea 67 H Nitrogen Creatinine 3.89 H Est Glomerular 16 L Filtrat Rate mL/min Glucose Level 145 Calcium Level 8.1 L Phosphorus Level 5.7 H Magnesium Level 2.3 CC: STANLEY LEDEZMA MD ; Exam/Review of Systems Exam Vitals Vital Signs Date Temp Pulse Resp B/P (MAP) Pulse Ox O2 O2 Flow FiO2 Time Delivery Rate 03/06/19 2.0 13:54 03/06/19 62 20 98 Nasal 08:55 Cannula 03/06/19 98.9 103/52 08:00 (69) 03/05/19 30 05:18 Intake and Output 03/05/19 03/05/19 03/06/19 1515:00 23:00 07:00 IntakeIntake Total 360 ml 560 ml OutputOutput Total 400 ml BalanceBalance 360 ml 160 ml Constitutional: alert, oriented, obese Psych: no complaints Head: normocephalic, atraumatic Eyes: nl conjunctiva ENMT: nl external ears & nose, nl lips & teeth Neck: supple Respiratory: clear to auscultation, normal air movement Cardiovascular: regular rate and rhythm Gastrointestinal: soft, non-tender, other (rotund) Musculoskeletal: other (left foot ulcer connect to wound vac) Extremities: normal pulses Neurological: MARK [employer] DES[employer] II-XII intact, nl mental status Skin: nl turgor Results Results 24hrs Laboratory Tests Test 03/05/19 16:00 5/11/19 17:46 03/05/19 20:10 03/05/19 20:47 Blood Gas Blood arterial Specimen Source Arterial Blood 03/05/2019 5:09:2 Date Drawn 1 PM Arterial Blood pH 7.369 (Temp corrected) Arterial Blood 53.2 H pCO2 (Temp correct) Arterial Blood 58.0 L pO2 (Temp corrected) Arterial Blood 30.0 H HCO3 Arterial Blood 3.8 H Base Excess Arterial Blood 87.4 L Oxygen Saturation Jose Antonio Test ACCEPTAB Arterial Blood Right Radial Gas Puncture Site Arterial 0.5 Blood Carboxyhemo globin Arterial Blood 0.3 Methemoglobin Blood Gas A-a O2 71.6 H Differential Oxyhemoglobin 86.7 L Percent Blood Gas 37.0 Temperature Blood Gas NASAL CANNULA Modality FiO2 27.0 Blood Gas JensKathy WILL [facility] Notified Whom Blood Gas 03/05/2019 5:22:4 Notified Time 3 PM Bedside Glucose 179 211 Urine Random 233.33 Creatinine Urine Random 30 Sodium Test 03/06/19 02:01 03/06/19 06:10 03/06/19 08:22 03/06/19 12:18 Bedside Glucose 167 189 195 White Blood Count 8.1 Red Blood Count 3.66 L Hemoglobin 10.2 L Hematocrit 32.7 L Mean Corpuscular 89.3 Volume Mean Corpuscular 27.9 L Hemoglobin Mean Corpuscular 31.2 L Hemoglobin Concen t Red Cell 16.0 H Distribution Width Platelet Count 171 Mean Platelet 11.5 H Volume Immature 0.600 H Granulocytes % Neutrophils % 59.2 Lymphocytes % 28.7 Monocytes % 9.0 Eosinophils % 2.0 Basophils % 0.5 Nucleated Red 0.0 Blood Cells % Immature 0.050 H Granulocytes # Neutrophils # 4.8 Lymphocytes # 2.3 Monocytes # 0.7 Eosinophils # 0.2 Basophils # 0.0 Nucleated Red 0.0 Blood Cells # Sodium Level 140 Potassium Level 4.9 Chloride Level 95 L Carbon Dioxide 35 H Level Anion Gap 10 Blood Urea 67 H Nitrogen Creatinine 3.89 H Est Glomerular 16 L Filtrat Rate mL/min Glucose Level 145 Calcium Level 8.1 L Phosphorus Level 5.7 H Magnesium Level 2.3 Imaging Imaging Gallbladder US 03/05/19: Limited study due to the patient's body habitus and inability to cooperate. Gallbladder is contracted and not well seen. Small stones cannot be excluded. Mild hepatomegaly with fatty liver. Pancreas and CBD not visualized. Medications Medication Current Medications IV Flush (NS 3 ml) 3 ml PER PROTOCOL IV ; Start 03/04/19 at 13:00 Ondansetron HCl (Zofran Inj) 4 mg Q6H PRN IV NAUSEA/VOMITING; Start 03/04/19 at 13:00 Acetaminophen (Tylenol Tab) 650 mg Q6H PRN PO .PAIN 1-3 OR TEMP; Start 03/04/19 at 13:00 Morphine Sulfate (morphine) 2 mg Q4H PRN IV .PAIN 7-10 Last administered on 03/05/19 06:27; Admin Dose 2 MG; Start 03/04/19 at 13:00; Status Hold Diagnostic Test (Pha) (Accu-Chek) 1 ea 02 XX Last administered on 03/06/19 02:01; Admin Dose 1 EA; Start 03/05/19 at 02:00 Insulin Glargine (Lantus) 30 units DAILY@2000 SC Last administered on 03/05/19 21:06; Admin Dose 30 UNITS; Start 03/04/19 at 20:00 Insulin Aspart (Novolog Insulin Pen) NOVOLOG *MILD* ALGORITHM WITH MEALS BEDTIME SC Last administered on 03/06/19 12:21; Admin Dose 2 UNIT; Start at 18:00 Amlodipine Besylate (Norvasc) 5 mg DAILY PO Last administered on 03/05/19 08:50; Admin Dose 5 MG; Start 03/05/19 at 09:00 Aspirin (Halfprin) 81 mg DAILY PO Last administered on 03/06/19 08:33; Admin Dose 81 MG; Start 03/05/19 at 09:00 Carvedilol (Coreg) 12.5 mg BID PO Last administered on 03/05/19 08:50; Admin Dose 12.5 MG; Start 03/04/19 at 21:00 Insulin Aspart (Novolog Insulin Pen) 5 unit WITH MEALS SC Last administered on 03/06/19 12:21; Admin Dose 5 UNIT; Start 03/04/19 at 18:00 Atorvastatin Calcium (Lipitor) 20 mg HS PO Last administered on 03/05/19 21:12; Admin Dose 20 MG; Start 03/04/19 at 21:00 Miscellaneous Information 1 ea NOTE XX ; Start 03/04/19 at 13:30 Glucose (Glutose) 15 gm Q15M PRN PO DECREASED GLUCOSE; Start 03/04/19 at 13:30 Glucose (Glutose) 22.5 gm Q15M PRN PO DECREASED GLUCOSE; Start 03/04/19 at 13:30 Dextrose (D50w Syringe) 25 ml Q15M PRN IV DECREASED GLUCOSE; Start 03/04/19 at 13:30 Dextrose (D50w Syringe) 50 ml Q15M PRN IV DECREASED GLUCOSE; Start 03/04/19 at 13:30 Glucagon (Glucagen) 1 mg Q15M PRN IM DECREASED GLUCOSE; Start 03/04/19 at 13:30 Glucose (Glutose) 15 gm Q15M PRN BUCCAL DECREASED GLUCOSE; Start 03/04/19 at 13:30 Oxycodone HCl (Roxicodone) 15 mg Q4H PRN PO PAIN; Start 03/04/19 at 14:00; Status Hold Pantoprazole (Protonix Tab) 40 mg DAILY@06 PO Last administered on 03/06/19at 06:14; Admin Dose 40 MG; Start 03/04/19 at 14:00 Sucralfate (Carafate Susp) 1 gm QID PO Last administered on 03/06/19 12:19; Admin Dose 1 GM; Start 03/04/19 at 17:00 Polyethylene Glycol (Miralax) 17 gm DAILY PRN PO CONSTIPATION Last administered on 03/06/19at 11:02; Admin Dose 17 GM; Start 03/04/19 at 14:00 Bisacodyl (Dulcolax) 10 mg DAILY PRN PO CONSTIPATION Last administered on 03/06/19at 11:02; Admin Dose 10 MG; Start 03/04/19 at 14:00 Oxycodone HCl (Oxycontin) 40 mg Q12 PO Last administered on 03/05/19at 08:46; Admin Dose 40 MG; Start 03/04/19 at 21:00; Status Hold Piperacillin Sod/ Tazobactam Sod 100 ml @ 200 mls/hr Q8 IVPB Last administered on 03/06/19at 06:09; Admin Dose 200 MLS/HR; Start 03/05/19 at 14:00 Albuterol/ Ipratropium (Duoneb) 3 ml Q6H RESP THERAPY HHN Last administered on 03/06/19at 08:55; Admin Dose 3 ML; Start 03/05/19 at 16:00 Albuterol/ Ipratropium (Duoneb) 3 ml Q2H RESP THERAPY PRN HHN SHORTNESS OF BREATH; Start 03/05/19 at 16:00 Docusate Sodium (Colace) 200 mg BID PO Last administered on 03/06/19at 08:30; Admin Dose 200 MG; Start 03/05/19 at 21:00 Mineral Oil (Fleet Mineral Oil Enema) 133 ml DAILY PRN [place] constipation Last administered on 03/06/19at 12:22; Admin Dose 133 ML; Start 03/05/19 at 17:00 Acetaminophen/ Hydrocodone Bitart ([place] (5/325)) 1 tab Q12 PRN PO MODERATE PAIN LEVEL 4-6; Start 03/06/19 at 10:30 MAU CASTRO NP March 06, 2019 14:17
[2019-03-06 20:00] VITALS: BP 107/60; PULSE 63; RESP 18
[2019-03-06] MEDS: ATORVASTATIN 20 MG TAB PO SCH (21:11)
[2019-03-06] MEDS: INSULIN GLARGINE [LANTus] (100 UNITS/ML) SYG SC SCH (21:15)
[2019-03-07] MEDS: ALBUTEROL/IPRATROPIUM (NEB) 3 ML AMP HHN SCH ×3 (01:33→20:59)
[2019-03-07] MEDS: ACCU-CHEK XX SCH (01:41)
[2019-03-07 02:00] VITALS: BP 117/66; PULSE 64; RESP 18
[2019-03-07] MEDS: PANTOPRAZOLE (EC) 40 MG TAB PO SCH (05:30)
[2019-03-07] MEDS: PIPER-TAZO 3.375 GM IV (PMX) 100 ML IVPB SCH ×2 (05:30→13:34)
[2019-03-07 08:10] VITALS: BP 128/69; PULSE 63; RESP 20
[2019-03-07] MEDS: INSULIN ASPART [NOVOLOG] 3 ML PEN SC SCH ×7 (08:51→22:29)
--- NOTE | 2019-03-07 08:51 | PN ---
DATE: 03/07/2019 SUBJECTIVE: The patient is stable. No events overnight. OBJECTIVE: VITAL SIGNS: Blood pressure is 128/69, pulse 63, respirations 20, temperature 98.6. HEENT: Head is normocephalic. NECK: Supple. HEART: Regular rate. LUNGS: Show diminished breath sounds at the base. ABDOMEN: Soft, nontender to palpation without rebound or guarding. EXTREMITIES: Negative for clubbing, cyanosis, no edema. DERMATOLOGIC: No rashes. MUSCULOSKELETAL: No joint effusion. NEUROLOGIC: No change in exam. MEDICATIONS: Reviewed. LABORATORY DATA: Reviewed. ASSESSMENT AND PLAN: 1. Nonoliguric acute kidney injury with previous baseline creatinine of 1.0 to 1.5 mg/dL. Etiology of acute kidney injury is secondary to hemodynamics due to Aldactone, KEVON inhibitor, and diuretics. The patient's renal function is improving. Continue current treatment plan, supportive care, renally dose all medications. Continue to hold diuretic therapy. 2. Lactic acidosis secondary to hemodynamics and sepsis. Improved with IV fluids and antibiotic the rapy. Continue to monitor. 3. Anemia. Monitor hemoglobin and hematocrit levels. 4. Mineral bone disorder. Monitor calcium and phosphorus levels. 5. Left foot ulcer. Continue to monitor. Follow up with podiatry. Continue wound care. 6. Diabetes. Continue current insulin regimen. 7. Sleep apnea. Continue CPAP. 8. Obesity. Continue dietary modification. 9. History of peripheral vascular disease. Continue to monitor. 10. Hypertension. Continue current blood pressure regimen. 11. Chronic pain syndrome. Continue current pain regimen. Dictated By: CHRISTIANO FLOYD DO NR/NTS Conf#: [id number] DID#: [id number] CC: DARLIN YOUNG MD; ANURAG TUCKER MD; ELIA ORTEGA DPM;*EndCC*
[2019-03-07] MEDS: SUCRALFATE (100 MG/ML) 10ML CUP PO SCH ×4 (09:05→22:17)
[2019-03-07] MEDS: DOCUSATE SODIUM 100 MG CAP PO SCH (09:05)
[2019-03-07] MEDS: AMLODIPINE 5 MG TAB PO SCH (09:06)
[2019-03-07] MEDS: ASPIRIN (EC) 81 MG TAB PO SCH (09:06)
--- NOTE | 2019-03-07 10:31 | PN ---
Date/Time of Note Date/Time of Note DATE: 03/07/19 TIME: 10:31 Assessment/Plan VTE Prophylaxis Risk score (from Ns)>0 risk: 3 SCD applied (from Ns): No SCD contraindicated: other Pharmacological prophylaxis: NA/contraindicated Pharm contraindication: patient refusal Lines/Catheters [facility] [place] Urinary Cath still in place: No Assessment/Plan Assessment/Plan 1. Acute on chronic left foot ulcer - Podiatry consultation appreciated and patient to continue wound VAC after d/c with dressing changes M, W,and F - ID on board for antibiotic recommendations and will continue on Daptomycin 2. Constipation - bowel regime adjusted - most likely from chronic opioid use 3. Acute abdominal pain - GI recommendations appreciated. Relieved after BM 4. Acute kidney injury versus chronic kidney disease - Nephrology on board and Cr improving. Will hold off on diuresis at this time until improvement in renal function despite patients concern about LE swelling 5. Diabetes mellitus - ISS and accuchecks - Lantus on board and will adjust as needed 6. Obstructive sleep apnea - CPAP qhs 7. Obesity - Chronic, monitor, dietary restriction advised 8. Peripheral vascular disease - Follow-up outpatient with his multiple specialists 9. Hypertension - Continue home meds 10. History of pituitary tumor - Chronic, follows up with endocrinology in the outpatient setting 11. Chronic anemia - Follows up with [facility] for CKD, continue to follow-up outpatient 12. Chronic pain - Patients respiratory drive normalized following BM. Will restart home medications and monitor for any acute issues 13. Disposition - CM consulted for SNF placement - continue wound vac and IV antibiotics Result Diagram: 03/07/19 0427 03/07/197 Results 24hrs Laboratory Tests Test 03/06/19 12:18 03/06/19 17:33 03/06/19 21:08 03/07/19 01:28 Bedside Glucose 195 223 H 204 171 Test 03/07/19 04:27 03/07/19 08:18 White Blood Count 8.0 Red Blood Count 3.73 L Hemoglobin 10.2 L Hematocrit 32.9 L Mean Corpuscular 88.2 Volume Mean Corpuscular 27.3 L Hemoglobin Mean Corpuscular 31.0 L Hemoglobin Concent Red Cell 15.9 H Distribution Width Platelet Count 188 Mean Platelet Volume 12.4 H Immature 0.400 Granulocytes % Neutrophils % 62.0 Lymphocytes % 25.8 Monocytes % 9.4 Eosinophils % 1.8 Basophils % 0.6 Nucleated Red Blood 0.0 Cells % Immature 0.030 Granulocytes # Neutrophils # 4.9 Lymphocytes # 2.1 Monocytes # 0.8 Eosinophils # 0.1 Basophils # 0.1 Nucleated Red Blood 0.0 Cells # Sodium Level 142 Potassium Level 4.8 Chloride Level 100 Carbon Dioxide Level 36 H Anion Gap 6 Blood Urea Nitrogen 49 #H Creatinine 2.05 #H Est Glomerular 34 L Filtrat Rate mL/min Glucose Level 147 Calcium Level 8.5 Phosphorus Level 3.4 # Magnesium Level 2.7 H Bedside Glucose 175 Subjective 24 Hr Interval Summary Free Text/Dictation Patient concerned about pain medications being held. He believes respiratory issues were related to abdominal pain that has resolved after BM. Requesting to be d/c to [facility] when stable. Exam/Review of Systems Exam Vitals Vital Signs Date Temp Pulse Resp B/P (MAP) Pulse Ox O2 O2 Flow FiO2 Time Delivery Rate 03/07/19 98.6 63 20 128/69 95 Nasal 08:10 (88) Cannula 03/07/19 2.0 01:33 03/05/19 30 05:18 Intake and Output 03/06/19 03/06/19 03/07/19 1515:00 23:00 07:00 IntakeIntake Total 940 ml 820 ml 100 ml OutputOutput Total 900 ml 1000 ml 750 ml BalanceBalance 40 ml -180 ml -650 ml Exam General: Patient is laying in bed and answers questions appropriately, morbidly obese Eyes: EOMI, pupils reactive to light Neck: Supple, nontender, midline Respiratory: Clear to auscultation bilaterally. diminished. no wheezing Cardiovascular: regular rate and rhythm, no obvious murmurs Gastrointestinal: soft, nontender, protuberant. no rebound or guarding. +BS noted ext: Moves all extremities spontaneously Skin: Left foot ulcer with wound vac in place. venous stasis changes on bilateral shins Results Results 24hrs Laboratory Tests Test 03/06/19 12:18 03/06/19 17:33 03/06/19 21:08 03/07/19 01:28 Bedside Glucose 195 223 H 204 171 Test 03/07/19 04:27 03/07/19 08:18 White Blood Count 8.0 Red Blood Count 3.73 L Hemoglobin 10.2 L Hematocrit 32.9 L Mean Corpuscular 88.2 Volume Mean Corpuscular 27.3 L Hemoglobin Mean Corpuscular 31.0 L Hemoglobin Concent Red Cell 15.9 H Distribution Width Platelet Count 188 Mean Platelet Volume 12.4 H Immature 0.400 Granulocytes % Neutrophils % 62.0 Lymphocytes % 25.8 Monocytes % 9.4 Eosinophils % 1.8 Basophils % 0.6 Nucleated Red Blood 0.0 Cells % Immature 0.030 Granulocytes # Neutrophils # 4.9 Lymphocytes # 2.1 Monocytes # 0.8 Eosinophils # 0.1 Basophils # 0.1 Nucleated Red Blood 0.0 Cells # Sodium Level 142 Potassium Level 4.8 Chloride Level 100 Carbon Dioxide Level 36 H Anion Gap 6 Blood Urea Nitrogen 49 #H Creatinine 2.05 #H Est Glomerular 34 L Filtrat Rate mL/min Glucose Level 147 Calcium Level 8.5 Phosphorus Level 3.4 # Magnesium Level 2.7 H Bedside Glucose 175 Medications Medication Current Medications IV Flush (NS 3 ml) 3 ml PER PROTOCOL IV ; Start 03/04/19 at 13:00 Ondansetron HCl (Zofran Inj) 4 mg Q6H PRN IV NAUSEA/VOMITING; Start 03/04/19 at 13:00 Acetaminophen (Tylenol Tab) 650 mg Q6H PRN PO .PAIN 1-3 OR TEMP; Start 03/04/19 at 13:00 Morphine Sulfate (morphine) 2 mg Q4H PRN IV .PAIN 7-10 Last administered on 03/05/19at 06:27; Admin Dose 2 MG; Start 03/04/19 at 13:00; Status Hold Diagnostic Test (Pha) (Accu-Chek) 1 ea 02 XX Last administered on 03/06/19at 02:01; Admin Dose 1 EA; Start 03/05/19 at 02:00 Insulin Glargine (Lantus) 30 units DAILY@2000 SC Last administered on 03/06/19at 21:15; Admin Dose 30 UNITS; Start 03/04/19 at 20:00 Insulin Aspart (Novolog Insulin Pen) NOVOLOG *MILD* ALGORITHM WITH MEALS BEDTIME SC Last administered on 03/07/19at 08:51; Admin Dose 1 UNIT; Start 03/04/19 at 18:00 Amlodipine Besylate (Norvasc) 5 mg DAILY PO Last administered on 5/13/19at 09:06; Admin Dose 5 MG; Start 03/05/19 at 09:00 Aspirin (Halfprin) 81 mg DAILY PO Last administered on 03/07/19at 09:06; Admin Dose 81 MG; Start 03/05/19 at 09:00 Carvedilol (Coreg) 12.5 mg BID PO Last administered on 03/07/19at 09:06; Admin Dose 12.5 MG; Start 03/04/19 at 21:00 Insulin Aspart (Novolog Insulin Pen) 5 unit WITH MEALS SC Last administered on 03/07/19at 08:52; Admin Dose 5 UNIT; Start 03/04/19 at 18:00 Atorvastatin Calcium (Lipitor) 20 mg HS PO Last administered on 03/06/19at 21:11; Admin Dose 20 MG; Start 03/04/19 at 21:00 Miscellaneous Information 1 ea NOTE XX ; Start 03/04/19 at 13:30 Glucose (Glutose) 15 gm Q15M PRN PO DECREASED GLUCOSE; Start 03/04/19 at 13:30 Glucose (Glutose) 22.5 gm Q15M PRN PO DECREASED GLUCOSE; Start 03/04/19 at 13:30 Dextrose (D50w Syringe) 25 ml Q15M PRN IV DECREASED GLUCOSE; Start 03/04/19 at 13:30 Dextrose (D50w Syringe) 50 ml Q15M PRN IV DECREASED GLUCOSE; Start 03/04/19 at 13:30 Glucagon (Glucagen) 1 mg Q15M PRN IM DECREASED GLUCOSE; Start 03/04/19 at 13:30 Glucose (Glutose) 15 gm Q15M PRN BUCCAL DECREASED GLUCOSE; Start 03/04/19 at 13:30 Oxycodone HCl (Roxicodone) 15 mg Q4H PRN PO PAIN; Start 03/04/19 at 14:00; Status Hold Pantoprazole (Protonix Tab) 40 mg DAILY@06 PO Last administered on 03/07/19at 05:30; Admin Dose 40 MG; Start 03/04/19 at 14:00 Sucralfate (Carafate Susp) 1 gm QID PO Last administered on 03/07/19at 09:05; Admin Dose 1 GM; Start 03/04/19 at 17:00 Polyethylene Glycol (Miralax) 17 gm DAILY PRN PO CONSTIPATION Last administered on 03/06/19at 11:02; Admin Dose 17 GM; Start 03/04/19 at 14:00 Bisacodyl (Dulcolax) 10 mg DAILY PRN PO CONSTIPATION Last administered on 03/06/19 11:02; Admin Dose 10 MG; Start 03/04/19 at 14:00 Oxycodone HCl (Oxycontin) 40 mg Q12 PO Last administered on 03/05/19 08:46; Admin Dose 40 MG; Start 03/04/19 at 21:00; Status Hold Piperacillin Sod/ Tazobactam Sod 100 ml @ 200 mls/hr Q8 IVPB Last administered on 03/07/19 05:30; Admin Dose 200 MLS/HR; Start 03/05/19 at 14:00 Albuterol/ Ipratropium (Duoneb) 3 ml Q6H RESP THERAPY HHN Last administered on 03/07/19 01:33; Admin Dose 3 ML; Start 03/05/19 at 16:00 Albuterol/ Ipratropium (Duoneb) 3 ml Q2H RESP THERAPY PRN HHN SHORTNESS OF BREATH; Start 03/05/19 at 16:00 Docusate Sodium (Colace) 200 mg BID PO Last administered on 03/07/19 09:05; Admin Dose 200 MG; Start 03/05/19 at 21:00 Mineral Oil (Fleet Mineral Oil Enema) 133 ml DAILY PRN [place] constipation Last administered on 03/06/19 12:22; Admin Dose 133 ML; Start 03/05/19 at 17:00 Acetaminophen/ Hydrocodone Bitart ([place] (5/325)) 1 tab Q12 PRN PO MODERATE PAIN LEVEL 4-6 Last administered on 03/06/19 21:14; Admin Dose 1 TAB; Start 03/06/19 at 10:30 SHARON LOW MD March 07, 2019 10:31
[2019-03-07] MEDS: oxyCODONE 15 MG TAB PO PRN (11:21)
--- NOTE | 2019-03-07 13:16 | PN ---
Date/Time of Note Date/Time of Note DATE: 03/07/19 TIME: 13:13 Assessment/Plan VTE Prophylaxis Risk score (from Ns)>0 risk: 3 SCD applied (from Ns): No SCD contraindicated: low risk/ambulating Pharmacological prophylaxis: NA/contraindicated Pharm contraindication: low risk/ambulating Lines/Catheters [facility] Saline Lock Urinary Cath still in place: No Assessment/Plan Hospital Course Assessment/Plan Abdominal pain - likely secondary to constipation Constipation likely due to narcotic pain medication use -CT abdomen/pelvis with heavy stool burden in right and transverse colon 03/04/19 Left foot ulcer Peripheral vascular disease Diabetes mellitus HTN Hepatomegaly Pituitary tumor Obstructive sleep apnea Obesity Altered mental status - resolved Plan: Continue bowel regimen Will add Amitiza to current regimen Continue current treatment plan. Further recommendations based on clinical course. Patient seen in collaboration with Dr. Ledezma Subjective: Pt is resting in bed easily awaken, he states he feels much better today. Abdominal pain has greatly improved patient has had multiple bowel movements yesterday. No complaints of nausea vomiting Constitutional: alert, oriented, obese Psych: no complaints Head: normocephalic, atraumatic Eyes: nl conjunctiva ENMT: nl external ears & nose, nl lips & teeth Neck: supple Respiratory: clear to auscultation, normal air movement Cardiovascular: regular rate and rhythm Gastrointestinal: soft, non-tender, other (rotund) Musculoskeletal: other (left foot ulcer connect to wound vac) Extremities: normal pulses Neurological: [employer] II-XII intact, nl mental status Skin: nl turgor Result Diagram: 03/07/19 0427 03/07/19 0427 Results 24hrs Laboratory Tests Test 03/06/19 17:33 03/06/19 21:08 03/07/19 01:28 03/07/19 04:27 Bedside Glucose 223 H 204 171 White Blood Count 8.0 Red Blood Count 3.73 L Hemoglobin 10.2 L Hematocrit 32.9 L Mean Corpuscular 88.2 Volume Mean Corpuscular 27.3 L Hemoglobin Mean Corpuscular 31.0 L Hemoglobin Concent Red Cell 15.9 H Distribution Width Platelet Count 188 Mean Platelet Volume 12.4 H Immature 0.400 Granulocytes % Neutrophils % 62.0 Lymphocytes % 25.8 Monocytes % 9.4 Eosinophils % 1.8 Basophils % 0.6 Nucleated Red Blood 0.0 Cells % Immature 0.030 Granulocytes # Neutrophils # 4.9 Lymphocytes # 2.1 Monocytes # 0.8 Eosinophils # 0.1 Basophils # 0.1 Nucleated Red Blood 0.0 Cells # Sodium Level 142 Potassium Level 4.8 Chloride Level 100 Carbon Dioxide Level 36 H Anion Gap 6 Blood Urea Nitrogen 49 #H Creatinine 2.05 #H Est Glomerular 34 L Filtrat Rate mL/min Glucose Level 147 Calcium Level 8.5 Phosphorus Level 3.4 # Magnesium Level 2.7 H Test 03/07/19 08:18 Bedside Glucose 175 Exam/Review of Systems Exam Vitals Vital Signs Date Temp Pulse Resp B/P (MAP) Pulse Ox O2 O2 Flow FiO2 Time Delivery Rate 03/07/19 Nasal 2.0 09:00 Cannula 03/07/19 98.6 63 20 128/69 95 08:10 (88) 03/05/19 30 05:18 Intake and Output 03/06/19 03/06/19 03/07/19 1515:00 23:00 07:00 IntakeIntake Total 940 ml 820 ml 100 ml OutputOutput Total 900 ml 1000 ml 750 ml BalanceBalance 40 ml -180 ml -650 ml Results Results 24hrs Laboratory Tests Test 03/06/19 17:33 03/06/19 21:08 03/07/19 01:28 03/07/19 04:27 Bedside Glucose 223 H 204 171 White Blood Count 8.0 Red Blood Count 3.73 L Hemoglobin 10.2 L Hematocrit 32.9 L Mean Corpuscular 88.2 Volume Mean Corpuscular 27.3 L Hemoglobin Mean Corpuscular 31.0 L Hemoglobin Concent Red Cell 15.9 H Distribution Width Platelet Count 188 Mean Platelet Volume 12.4 H Immature 0.400 Granulocytes % Neutrophils % 62.0 Lymphocytes % 25.8 Monocytes % 9.4 Eosinophils % 1.8 Basophils % 0.6 Nucleated Red Blood 0.0 Cells % Immature 0.030 Granulocytes # Neutrophils # 4.9 Lymphocytes # 2.1 Monocytes # 0.8 Eosinophils # 0.1 Basophils # 0.1 Nucleated Red Blood 0.0 Cells # Sodium Level 142 Potassium Level 4.8 Chloride Level 100 Carbon Dioxide Level 36 H Anion Gap 6 Blood Urea Nitrogen 49 #H Creatinine 2.05 #H Est Glomerular 34 L Filtrat Rate mL/min Glucose Level 147 Calcium Level 8.5 Phosphorus Level 3.4 # Magnesium Level 2.7 H Test 03/07/19 08:18 Bedside Glucose 175 Medications Medication Current Medications IV Flush (NS 3 ml) 3 ml PER PROTOCOL IV ; Start 03/04/19 at 13:00 Ondansetron HCl (Zofran Inj) 4 mg Q6H PRN IV NAUSEA/VOMITING; Start 03/04/19 at 13:00 Acetaminophen (Tylenol Tab) 650 mg Q6H PRN PO .PAIN 1-3 OR TEMP; Start 03/04/19 at 13:00 Diagnostic Test (Pha) (Accu-Chek) 1 ea 02 XX Last administered on 03/06/19at 02:01; Admin Dose 1 EA; Start 03/05/19 at 02:00 Insulin Glargine (Lantus) 30 units DAILY@2000 SC Last administered on 03/06/19 21:15; Admin Dose 30 UNITS; Start 03/04/19 at 20:00 Insulin Aspart (Novolog Insulin Pen) NOVOLOG *MILD* ALGORITHM WITH MEALS BEDTIME SC Last administered on 03/07/19 08:51; Admin Dose 1 UNIT; Start 03/04/19 at 18:00 Amlodipine Besylate (Norvasc) 5 mg DAILY PO Last administered on 03/07/19 09:06; Admin Dose 5 MG; Start 03/05/19 at 09:00 Aspirin (Halfprin) 81 mg DAILY PO Last administered on 03/07/19 09:06; Admin Dose 81 MG; Start 03/05/19 at 09:00 Carvedilol (Coreg) 12.5 mg BID PO Last administered on 03/07/19 09:06; Admin Dose 12.5 MG; Start 03/04/19 at 21:00 Insulin Aspart (Novolog Insulin Pen) 5 unit WITH MEALS SC Last administered on 03/07/19 08:52; Admin Dose 5 UNIT; Start 03/04/19 at 18:00 Atorvastatin Calcium (Lipitor) 20 mg HS PO Last administered on 03/06/19 21:11; Admin Dose 20 MG; Start 03/04/19 at 21:00 Miscellaneous Information 1 ea NOTE XX ; Start 03/04/19 at 13:30 Glucose (Glutose) 15 gm Q15M PRN PO DECREASED GLUCOSE; Start 03/04/19 at 13:30 Glucose (Glutose) 22.5 gm Q15M PRN PO DECREASED GLUCOSE; Start 03/04/19 at 13:30 Dextrose (D50w Syringe) 25 ml Q15M PRN IV DECREASED GLUCOSE; Start 03/04/19 at 13:30 Dextrose (D50w Syringe) 50 ml Q15M PRN IV DECREASED GLUCOSE; Start 03/04/19 at 13:30 Glucagon (Glucagen) 1 mg Q15M PRN IM DECREASED GLUCOSE; Start 03/04/19 at 13:30 Glucose (Glutose) 15 gm Q15M PRN BUCCAL DECREASED GLUCOSE; Start 03/04/19 at 13:30 Oxycodone HCl (Roxicodone) 15 mg Q4H PRN PO PAIN Last administered on 03/07/19 11:21; Admin Dose 15 MG; Start 03/04/19 at 14:00 Pantoprazole (Protonix Tab) 40 mg DAILY@06 PO Last administered on 03/07/19 05:30; Admin Dose 40 MG; Start 03/04/19 at 14:00 Sucralfate (Carafate Susp) 1 gm QID PO Last administered on 03/07/19 09:05; Admin Dose 1 GM; Start 03/04/19 at 17:00 Polyethylene Glycol (Miralax) 17 gm DAILY PRN PO CONSTIPATION Last administered on 03/06/19 11:02; Admin Dose 17 GM; Start 03/04/19 at 14:00 Bisacodyl (Dulcolax) 10 mg DAILY PRN PO CONSTIPATION Last administered on 03/06/19 11:02; Admin Dose 10 MG; Start 03/04/19 at 14:00 Piperacillin Sod/ Tazobactam Sod 100 ml @ 200 mls/hr Q8 IVPB Last administered on 03/07/19 05:30; Admin Dose 200 MLS/HR; Start 03/05/19 at 14:00 Albuterol/ Ipratropium (Duoneb) 3 ml Q6H RESP THERAPY HHN Last administered on 03/07/19at 01:33; Admin Dose 3 ML; Start 03/05/19 at 16:00 Albuterol/ Ipratropium (Duoneb) 3 ml Q2H RESP THERAPY PRN HHN SHORTNESS OF BREATH; Start 03/05/19 at 16:00 Mineral Oil (Fleet Mineral Oil Enema) 133 ml DAILY PRN [place] constipation Last administered on 03/06/19at 12:22; Admin Dose 133 ML; Start 03/05/19 at 17:00 Oxycodone HCl (Oxycontin) 80 mg Q12 PO ; Start 03/07/19 at 21:00 Senna/Docusate Sodium (Senokot-S) 2 tab BID PO ; Start 03/07/19 at 21:00 MARIE CAST March 07, 2019 13:16
[2019-03-07 14:42] VITALS: BP 117/57; PULSE 57; RESP 18
--- NOTE | 2019-03-07 14:52 | CONS ---
Assessment/Plan Assessment/Plan Hospital Course (Demo Recall) Patient is alert sitting comfortably in bed looks okay no fevers no pain at the moment WBC today 8 platelets 188 no shift no bands BUN 49 creatinine 2.05 Blood cultures remain negative Left heel wound culture grew staph species Antimicrobials: Patient is on Zosyn Physical examination: This is a morbidly obese well-developed middle-aged -[place] man who is alert in no distress head atraumatic normocephalic neck is supple chest rise symmetrical breath sounds diminished bases heart: S1- S2 abdomen obese bowel sounds hypoactive extremities with bilateral edema left heel wound VAC present Assessment: 1. Left heel nonhealing ulceration 2. Peripheral vascular disease 3. Morbid obesity 4. Diabetes 5. Acute possibly on chronic kidney disease Plan: We will change antibiotics to IV daptomycin continue local wound care per podiatry Consultation Date/Type/Reason Admit Date/Time March 04, 2019 at 12:37 Initial Consult Date 03/05/19 Type of Consult id Requesting Provider: ANURAG TUCKER Date/Time of Note DATE: 03/07/19 TIME: 14:52 Exam/Review of Systems Exam Vitals Vital Signs Date Temp Pulse Resp B/P (MAP) Pulse Ox O2 O2 Flow FiO2 Time Delivery Rate 03/07/19 98.7 57 18 117/57 93 Room Air 14:42 (77) 03/07/19 2.0 09:00 03/05/19 30 05:18 Intake and Output 03/06/19 03/06/19 03/07/19 1515:00 23:00 07:00 IntakeIntake Total 940 ml 820 ml 100 ml OutputOutput Total 900 ml 1000 ml 750 ml BalanceBalance 40 ml -180 ml -650 ml Results Result Diagram: 03/07/19 0427 03/07/19 0427 Results 24hrs Laboratory Tests Test 03/06/19 17:33 03/06/19 21:08 03/07/19 01:28 03/07/19 04:27 Bedside Glucose 223 H 204 171 White Blood Count 8.0 Red Blood Count 3.73 L Hemoglobin 10.2 L Hematocrit 32.9 L Mean Corpuscular 88.2 Volume Mean Corpuscular 27.3 L Hemoglobin Mean Corpuscular 31.0 L Hemoglobin Concent Red Cell 15.9 H Distribution Width Platelet Count 188 Mean Platelet Volume 12.4 H Immature 0.400 Granulocytes % Neutrophils % 62.0 Lymphocytes % 25.8 Monocytes % 9.4 Eosinophils % 1.8 Basophils % 0.6 Nucleated Red Blood 0.0 Cells % Immature 0.030 Granulocytes # Neutrophils # 4.9 Lymphocytes # 2.1 Monocytes # 0.8 Eosinophils # 0.1 Basophils # 0.1 Nucleated Red Blood 0.0 Cells # Sodium Level 142 Potassium Level 4.8 Chloride Level 100 Carbon Dioxide Level 36 H Anion Gap 6 Blood Urea Nitrogen 49 #H Creatinine 2.05 #H Est Glomerular 34 L Filtrat Rate mL/min Glucose Level 147 Calcium Level 8.5 Phosphorus Level 3.4 # Magnesium Level 2.7 H Test 03/07/19 08:18 03/07/19 12:52 Bedside Glucose 175 222 H Medications Medication Current Medications IV Flush (NS 3 ml) 3 ml PER PROTOCOL IV ; Start 03/04/19 at 13:00 Ondansetron HCl (Zofran Inj) 4 mg Q6H PRN IV NAUSEA/VOMITING; Start 03/04/19 at 13:00 Acetaminophen (Tylenol Tab) 650 mg Q6H PRN PO .PAIN 1-3 OR TEMP; Start 03/04/19 at 13:00 Diagnostic Test (Pha) (Accu-Chek) 1 ea 02 XX Last administered on 03/06/19at 02:01; Admin Dose 1 EA; Start 03/05/19 at 02:00 Insulin Glargine (Lantus) 30 units DAILY@2000 SC Last administered on 03/06/19at 21:15; Admin Dose 30 UNITS; Start 03/04/19 at 20:00 Insulin Aspart (Novolog Insulin Pen) NOVOLOG *MILD* ALGORITHM WITH MEALS BEDTIME SC Last administered on 03/07/19at 13:31; Admin Dose 3 UNIT; Start 03/04/19 at 18:00 Amlodipine Besylate (Norvasc) 5 mg DAILY PO Last administered on 03/07/19 09:06; Admin Dose 5 MG; Start 03/05/19 at 09:00 Aspirin (Halfprin) 81 mg DAILY PO Last administered on 03/07/19 09:06; Admin Dose 81 MG; Start 03/05/19 at 09:00 Carvedilol (Coreg) 12.5 mg BID PO Last administered on 03/07/19 09:06; Admin Dose 12.5 MG; Start 03/04/19 at 21:00 Insulin Aspart (Novolog Insulin Pen) 5 unit WITH MEALS SC Last administered on 03/07/19at 13:30; Admin Dose 5 UNIT; Start 03/04/19 at 18:00 Atorvastatin Calcium (Lipitor) 20 mg HS PO Last administered on 03/06/19at 21:11; Admin Dose 20 MG; Start 03/04/19 at 21:00 Miscellaneous Information 1 ea NOTE XX ; Start 03/04/19 at 13:30 Glucose (Glutose) 15 gm Q15M PRN PO DECREASED GLUCOSE; Start 03/04/19 at 13:30 Glucose (Glutose) 22.5 gm Q15M PRN PO DECREASED GLUCOSE; Start 03/04/19 at 13:30 Dextrose (D50w Syringe) 25 ml Q15M PRN IV DECREASED GLUCOSE; Start 03/04/19 at 13:30 Dextrose (D50w Syringe) 50 ml Q15M PRN IV DECREASED GLUCOSE; Start 03/04/19 at 13:30 Glucagon (Glucagen) 1 mg Q15M PRN IM DECREASED GLUCOSE; Start 03/04/19 at 13:30 Glucose (Glutose) 15 gm Q15M PRN BUCCAL DECREASED GLUCOSE; Start 03/04/19 at 13:30 Oxycodone HCl (Roxicodone) 15 mg Q4H PRN PO PAIN Last administered on 03/07/19at 11:21; Admin Dose 15 MG; Start 03/04/19 at 14:00 Pantoprazole (Protonix Tab) 40 mg DAILY@06 PO Last administered on 03/07/19at 05:30; Admin Dose 40 MG; Start 03/04/19 at 14:00 Sucralfate (Carafate Susp) 1 gm QID PO Last administered on 03/07/19at 13:32; Admin Dose 1 GM; Start 03/04/19 at 17:00 Polyethylene Glycol (Miralax) 17 gm DAILY PRN PO CONSTIPATION Last administered on 03/06/19 11:02; Admin Dose 17 GM; Start 03/04/19 at 14:00 Bisacodyl (Dulcolax) 10 mg DAILY PRN PO CONSTIPATION Last administered on 03/06/19at 11:02; Admin Dose 10 MG; Start 03/04/19 at 14:00 Piperacillin Sod/ Tazobactam Sod 100 ml @ 200 mls/hr Q8 IVPB Last administered on 03/07/19at 13:34; Admin Dose 200 MLS/HR; Start 03/05/19 at 14:00 Albuterol/ Ipratropium (Duoneb) 3 ml Q6H RESP THERAPY HHN Last administered on 03/07/19at 01:33; Admin Dose 3 ML; Start 03/05/19 at 16:00 Albuterol/ Ipratropium (Duoneb) 3 ml Q2H RESP THERAPY PRN HHN SHORTNESS OF BREATH; Start 03/05/19 at 16:00 Mineral Oil (Fleet Mineral Oil Enema) 133 ml DAILY PRN [place] constipation Last administered on 03/06/19at 12:22; Admin Dose 133 ML; Start 03/05/19 at 17:00 Oxycodone HCl (Oxycontin) 80 mg Q12 PO ; Start 03/07/19 at 21:00 Senna/Docusate Sodium (Senokot-S) 2 tab BID PO ; Start 03/07/19 at 21:00 Lubiprostone (Amitiza) 16 mcg BID PO ; Start 03/07/19 at 21:00 JEREMIAH RUBIO NP March 07, 2019 14:52
[2019-03-07] MEDS ORDERED: MAGNESIUM CITRATE 300 ML BTL PO ONE (16:30)
[2019-03-07] MEDS: DAPTOMYCIN 1,000 MG in SOD CHLORIDE 0.9% 100 ML IVPB SCH (18:20)
[2019-03-07 20:45] VITALS: BP 127/68; PULSE 71; RESP 18
[2019-03-07] MEDS: LUBIPROSTONE 8 MCG CAPSULE PO SCH (22:17)
[2019-03-07] MEDS: SENNA/DOCUSATE NA (8.6MG/50MG) TAB PO SCH (22:18)
[2019-03-07] MEDS: oxyCODONE (CR) 40 MG TAB [oxyCONTIN] PO SCH (22:18)
[2019-03-07] MEDS: ATORVASTATIN 20 MG TAB PO SCH (22:18)
[2019-03-07] MEDS: INSULIN GLARGINE [LANTus] (100 UNITS/ML) SYG SC SCH (22:27)
[2019-03-08] MEDS: ALBUTEROL/IPRATROPIUM (NEB) 3 ML AMP HHN SCH ×4 (01:08→21:17)
[2019-03-08 01:54] VITALS: BP 141/66; PULSE 69; RESP 18
[2019-03-08] MEDS: ACCU-CHEK XX SCH (02:02)
[2019-03-08] MEDS: PANTOPRAZOLE (EC) 40 MG TAB PO SCH (06:34)
[2019-03-08 07:59] VITALS: BP 134/60; PULSE 64; RESP 20
[2019-03-08] MEDS ORDERED: INSULIN REGULAR, HUMAN 100 UNIT/1 ML 3ML VIAL IVP STA (08:16)
[2019-03-08] MEDS ORDERED: SODIUM POLYSTYRENE 15 GM KIT (POWDER + SORBITOL) PO ONE (08:30)
[2019-03-08] MEDS ORDERED: NA POLYST SULFON 15 GM/60 ML BTL PO ONE (08:30)
[2019-03-08] MEDS ORDERED: DEXTROSE 50% 50 ML SYRINGE IV PRN (08:30)
[2019-03-08] MEDS: ASPIRIN (EC) 81 MG TAB PO SCH (08:52)
[2019-03-08] MEDS: oxyCODONE (CR) 40 MG TAB [oxyCONTIN] PO SCH ×2 (08:52→21:50)
[2019-03-08] MEDS: LUBIPROSTONE 8 MCG CAPSULE PO SCH ×2 (08:52→21:00)
[2019-03-08] MEDS: SENNA/DOCUSATE NA (8.6MG/50MG) TAB PO SCH ×2 (08:52→21:00)
[2019-03-08] MEDS: SUCRALFATE (100 MG/ML) 10ML CUP PO SCH ×4 (08:52→21:51)
[2019-03-08] MEDS: AMLODIPINE 5 MG TAB PO SCH (08:54)
[2019-03-08] MEDS: INSULIN ASPART [NOVOLOG] 3 ML PEN SC SCH ×7 (08:58→21:00)
--- NOTE | 2019-03-08 09:18 | PN ---
DATE: 03/08/2019 SUBJECTIVE: The patient is stable, no events overnight. The patient is requesting to be started on diuretics OBJECTIVE: VITAL SIGNS: Blood pressure is 134/68, pulse 64, respirations 20, temperature 98.0. HEENT: Head is normocephalic. NECK: Supple. HEART: Regular rate. LUNGS: Show diminished breath sounds at base. ABDOMEN: Soft, nontender to palpation without rebound or guarding. EXTREMITIES: Negative for clubbing, cyanosis. Positive edema. DERMATOLOGIC: No rashes. MUSCULOSKELETAL: No joint effusion. NEUROLOGIC: No change in exam. MEDICATIONS: Reviewed. LABORATORY DATA: From 03/08/2019 was reviewed. ASSESSMENT AND PLAN: 1. Nonoliguric acute kidney injury with previous baseline creatinine 1.0 - 1.5 mg/dL. Etiology of acute kidney injury is multifactorial secondary to hemodynamics, KEVON inhibitor effect, diuretic therapy. The patient's renal function is improving. Continue current treatment plan, supportive care, renally dose all meds. Monitor renal function as bumex will be introduced 2 Le edema, likely 2/2 venous insufficiency, questionable diastolic dysfunction. Will start bumex, monitor 3. hyperkalemia. mild . monitor 2. Anemia. Monitor hemoglobin and hematocrit levels. 3. Mineral bone disorder. Monitor calcium and phosphorus levels. 4. Left foot ulcer. Continue wound care. Continue antibiotic therapy. Follow up with podiatry. 5. Diabetes. Continue current insulin regimen. 6. Sleep apnea. Continue CPAP. 7. Obesity. Continue dietary modification. 8. Hypertension. Continue current blood pressure regimen. 9. Chronic pain syndrome. Continue current pain regimen. 10. Abdominal pain, likely from constipation. Continue to monitor. CT scan was reviewed. Follow up with GI. Dictated By: CHRISTIANO CORREA/NTS Conf#: [id number] DID#: [id number]
[2019-03-08] MEDS: BUMETANIDE 1 MG TAB PO SCH (09:59)
--- NOTE | 2019-03-08 11:08 | PN ---
Date/Time of Note Date/Time of Note DATE: 03/08/19 TIME: 11:06 Assessment/Plan VTE Prophylaxis Risk score (from Ns)>0 risk: 3 SCD applied (from Ns): No SCD contraindicated: bilateral LE trauma Pharmacological prophylaxis: NA/contraindicated Pharm contraindication: renal impairment Lines/Catheters [facility] Saline Lock Urinary Cath still in place: No Assessment/Plan Hospital Course Assessment/Plan Abdominal pain - likely secondary to constipation Constipation likely due to narcotic pain medication use -CT abdomen/pelvis with heavy stool burden in right and transverse colon 03/04/19 Left foot ulcer Peripheral vascular disease Diabetes mellitus HTN Hepatomegaly Pituitary tumor Obstructive sleep apnea Obesity Altered mental status - resolved Plan: Continue current regimen Gi will sign off at this time but will be available for reconsult as needed Patient seen in collaboration with Dr. Ledezma Subjective: No overnight events patient now denies abdominal pain. States he is having bowel movements without difficulty planes of nausea or vomiting. PHYSICAL EXAMINATION: GENERAL: Well developed, obese, alert & oriented x 3, in no acute distress, O2 in place SKIN: No lesions HEAD: Normocephalic, atraumatic, no tenderness. EYES: Pupils equal reactive to light and accommodation, full extraocular movements, sclera clear, non-icteric, no discharge. EARS/NOSE AND THROAT: Ears normal, nose normal, oropharynx normal, oral membranes well hydrated without lesions. NECK: Supple, no masses, thyroid normal. CHEST: Inspection within normal limits. CARDIOVASCULAR: Heart: Regular rate and rhythm, RESPIRATORY: Diminished GASTROINTESTINAL AND LIVER: Abdomen: Soft, non tenderness, non-distended, no hernias, no masses, no organomegaly, no ascites, no guarding, no rebound tenderness, normoactive bowel sounds. Rectal: Deferred. GENITOURINARY: Male genitalia within normal limits. EXTREMITIES: Left foot ulcer. Result Diagram: 03/08/19 0428 03/08/198 Results 24hrs Laboratory Tests Test 03/07/19 12:52 03/07/19 17:52 03/07/19 22:22 03/08/19 01:54 Bedside Glucose 222 H 177 327 H 179 Test 03/08/19 04:28 03/08/19 08:51 White Blood Count 8.6 Red Blood Count 3.74 L Hemoglobin 10.3 L Hematocrit 33.3 L Mean Corpuscular 89.0 Volume Mean Corpuscular 27.5 L Hemoglobin Mean Corpuscular 30.9 L Hemoglobin Concent Red Cell 16.0 H Distribution Width Platelet Count 182 Mean Platelet Volume 12.4 H Immature 0.300 Granulocytes % Neutrophils % 63.2 Lymphocytes % 23.6 Monocytes % 10.1 Eosinophils % 2.2 Basophils % 0.6 Nucleated Red Blood 0.0 Cells % Immature 0.030 Granulocytes # Neutrophils # 5.5 Lymphocytes # 2.0 Monocytes # 0.9 Eosinophils # 0.2 Basophils # 0.1 Nucleated Red Blood 0.0 Cells # Sodium Level 143 Potassium Level 5.2 H Chloride Level 103 Carbon Dioxide Level 34 H Anion Gap 6 Blood Urea Nitrogen 32 #H Creatinine 1.30 H Est Glomerular 57 L Filtrat Rate mL/min Glucose Level 173 Calcium Level 8.9 Phosphorus Level 3.4 Magnesium Level 2.5 Creatine Kinase 147 Bedside Glucose 178 Exam/Review of Systems Exam Vitals Vital Signs Date Temp Pulse Resp B/P (MAP) Pulse Ox O2 O2 Flow FiO2 Time Delivery Rate 03/08/19 Nasal 2.0 08:15 Cannula 03/08/19 98.0 64 20 134/60 96 07:59 (84) 03/05/19 30 05:18 Intake and Output 03/07/19 03/07/19 03/08/19 1515:00 23:00 07:00 IntakeIntake Total 840 ml 200 ml OutputOutput Total 700 ml 450 ml 200 ml BalanceBalance 140 ml -250 ml -200 ml Results Results 24hrs Laboratory Tests Test 03/07/19 12:52 03/07/19 17:52 03/07/19 22:22 03/08/19 01:54 Bedside Glucose 222 H 177 327 H 179 Test 03/08/19 04:28 03/08/19 08:51 White Blood Count 8.6 Red Blood Count 3.74 L Hemoglobin 10.3 L Hematocrit 33.3 L Mean Corpuscular 89.0 Volume Mean Corpuscular 27.5 L Hemoglobin Mean Corpuscular 30.9 L Hemoglobin Concent Red Cell 16.0 H Distribution Width Platelet Count 182 Mean Platelet Volume 12.4 H Immature 0.300 Granulocytes % Neutrophils % 63.2 Lymphocytes % 23.6 Monocytes % 10.1 Eosinophils % 2.2 Basophils % 0.6 Nucleated Red Blood 0.0 Cells % Immature 0.030 Granulocytes # Neutrophils # 5.5 Lymphocytes # 2.0 Monocytes # 0.9 Eosinophils # 0.2 Basophils # 0.1 Nucleated Red Blood 0.0 Cells # Sodium Level 143 Potassium Level 5.2 H Chloride Level 103 Carbon Dioxide Level 34 H Anion Gap 6 Blood Urea Nitrogen 32 #H Creatinine 1.30 H Est Glomerular 57 L Filtrat Rate mL/min Glucose Level 173 Calcium Level 8.9 Phosphorus Level 3.4 Magnesium Level 2.5 Creatine Kinase 147 Bedside Glucose 178 Medications Medication Current Medications IV Flush (NS 3 ml) 3 ml PER PROTOCOL IV ; Start 03/04/19 at 13:00 Ondansetron HCl (Zofran Inj) 4 mg Q6H PRN IV NAUSEA/VOMITING; Start 03/04/19 at 13:00 Acetaminophen (Tylenol Tab) 650 mg Q6H PRN PO .PAIN 1-3 OR TEMP; Start 03/04/19 at 13:00 Diagnostic Test (Pha) (Accu-Chek) 1 ea 02 XX Last administered on 03/08/19 02:02; Admin Dose 1 EA; Start 03/05/19 at 02:00 Insulin Glargine (Lantus) 30 units DAILY@2000 SC Last administered on 03/07/19 22:27; Admin Dose 30 UNITS; Start 03/04/19 at 20:00 Insulin Aspart (Novolog Insulin Pen) NOVOLOG *MILD* ALGORITHM WITH MEALS BEDTIME SC Last administered on 03/08/19 08:59; Admin Dose 1 UNIT; Start 03/04/19 at 18:00 Amlodipine Besylate (Norvasc) 5 mg DAILY PO Last administered on 03/08/19 08:54; Admin Dose 5 MG; Start 03/05/19 at 09:00 Aspirin (Halfprin) 81 mg DAILY PO Last administered on 03/08/19 08:52; Admin Dose 81 MG; Start 03/05/19 at 09:00 Carvedilol (Coreg) 12.5 mg BID PO Last administered on 03/08/19 08:53; Admin Dose 12.5 MG; Start 03/04/19 at 21:00 Insulin Aspart (Novolog Insulin Pen) 5 unit WITH MEALS SC Last administered on 03/08/19 08:58; Admin Dose 5 UNIT; Start 03/04/19 at 18:00 Atorvastatin Calcium (Lipitor) 20 mg HS PO Last administered on 03/07/19at 22:18; Admin Dose 20 MG; Start 03/04/19 at 21:00 Miscellaneous Information 1 ea NOTE XX ; Start 03/04/19 at 13:30 Glucose (Glutose) 15 gm Q15M PRN PO DECREASED GLUCOSE; Start 03/04/19 at 13:30 Glucose (Glutose) 22.5 gm Q15M PRN PO DECREASED GLUCOSE; Start 03/04/19 at 13:30 Dextrose (D50w Syringe) 25 ml Q15M PRN IV DECREASED GLUCOSE; Start 03/04/19 at 13:30 Dextrose (D50w Syringe) 50 ml Q15M PRN IV DECREASED GLUCOSE; Start 03/04/19 at 13:30 Glucagon (Glucagen) 1 mg Q15M PRN IM DECREASED GLUCOSE; Start 03/04/19 at 13:30 Glucose (Glutose) 15 gm Q15M PRN BUCCAL DECREASED GLUCOSE; Start 03/04/19 at 13:30 Oxycodone HCl (Roxicodone) 15 mg Q4H PRN PO PAIN Last administered on 03/07/19at 11:21; Admin Dose 15 MG; Start 03/04/19 at 14:00 Pantoprazole (Protonix Tab) 40 mg DAILY@06 PO Last administered on 03/08/19at 06:34; Admin Dose 40 MG; Start 03/04/19 at 14:00 Sucralfate (Carafate Susp) 1 gm QID PO Last administered on 03/08/19at 08:52; Admin Dose 1 GM; Start 03/04/19 at 17:00 Polyethylene Glycol (Miralax) 17 gm DAILY PRN PO CONSTIPATION Last administered on 03/06/19at 11:02; Admin Dose 17 GM; Start 03/04/19 at 14:00 Bisacodyl (Dulcolax) 10 mg DAILY PRN PO CONSTIPATION Last administered on 03/06/19at 11:02; Admin Dose 10 MG; Start 03/04/19 at 14:00 Albuterol/ Ipratropium (Duoneb) 3 ml Q6H RESP THERAPY HHN Last administered on 03/08/19at 01:08; Admin Dose 3 ML; Start 03/05/19 at 16:00 Albuterol/ Ipratropium (Duoneb) 3 ml Q2H RESP THERAPY PRN HHN SHORTNESS OF BREATH; Start 03/05/19 at 16:00 Mineral Oil (Fleet Mineral Oil Enema) 133 ml DAILY PRN [place] constipation Last adm inistered on 03/06/19 12:22; Admin Dose 133 ML; Start 03/05/19 at 17:00 Oxycodone HCl (Oxycontin) 80 mg Q12 PO Last administered on 03/08/19 08:52; Admin Dose 80 MG; Start 03/07/19 at 21:00 Senna/Docusate Sodium (Senokot-S) 2 tab BID PO Last administered on 03/08/19 08:52; Admin Dose 2 TAB; Start 03/07/19 at 21:00 Lubiprostone (Amitiza) 16 mcg BID PO Last administered on 03/08/19 08:52; Adm in Dose 16 MCG; Start 03/07/19 at 21:00 Daptomycin 1000 mg/Sodium Chloride 100 ml @ 200 mls/hr Q24H IVPB Last administered on 03/07/19 18:20; Admin Dose 200 MLS/HR; Start 03/07/19 at 17:00 Bumetanide (Bumex) 1 mg DAILY PO Last administered on 03/08/19 09:59; Admin Dose 1 MG; Start 03/08/19 at 09:30 MARIE CAST March 08, 2019 11:08
--- NOTE | 2019-03-08 11:58 | PN ---
Date/Time of Note Date/Time of Note DATE: 03/08/19 TIME: 11:58 Assessment/Plan VTE Prophylaxis Risk score (from Ns)>0 risk: 3 SCD applied (from [facility]): No SCD contraindicated: other Pharmacological prophylaxis: NA/contraindicated Pharm contraindication: patient refusal Lines/Catheters IV [facility]ter Type (from [facility] Saline Lock Urinary Cath still in place: No Assessment/Plan Assessment/Plan 1. Acute on chronic left foot ulcer- stable - continue current care - Podiatry consultation appreciated and patient to continue wound VAC after d/c with dressing changes M, W,and F - ID on board for antibiotic recommendations and will continue on Daptomycin 2. Constipation - bowel regime on board and started on Amitiza - most likely from chronic opioid use 3. Acute abdominal pain - GI recommendations appreciated. Relieved after BM 4. Acute kidney injury versus chronic kidney disease - Nephrology on board and Cr improving. Will restart Bumex and monitor renal function 5. Diabetes mellitus - ISS and accuchecks - Lantus on board and will adjust as needed 6. Obstructive sleep apnea - CPAP qhs 7. Obesity - Chronic, monitor, dietary restriction advised 8. Peripheral vascular disease - Follow-up outpatient with his multiple specialists 9. Hypertension - Continue home meds 10. History of pituitary tumor - Chronic, follows up with endocrinology in the outpatient setting 11. Chronic anemia - stable 12. Chronic pain - on home regime 13. Disposition - Restarting on Bumex and if Cr remains stable, will d/c to SNF tomorrow - continue wound vac and IV antibiotics Result Diagram: 03/08/19 0428 03/08/19427 Results 24hrs Laboratory Tests Test 03/07/19 12:52 03/07/19 17:52 03/07/19 22:22 03/08/19 01:54 Bedside Glucose 222 H 177 327 H 179 Test 03/08/19 04:28 03/08/19 08:51 White Blood Count 8.6 Red Blood Count 3.74 L Hemoglobin 10.3 L Hematocrit 33.3 L Mean Corpuscular 89.0 Volume Mean Corpuscular 27.5 L Hemoglobin Mean Corpuscular 30.9 L Hemoglobin Concent Red Cell 16.0 H Distribution Width Platelet Count 182 Mean Platelet Volume 12.4 H Immature 0.300 Granulocytes % Neutrophils % 63.2 Lymphocytes % 23.6 Monocytes % 10.1 Eosinophils % 2.2 Basophils % 0.6 Nucleated Red Blood 0.0 Cells % Immature 0.030 Granulocytes # Neutrophils # 5.5 Lymphocytes # 2.0 Monocytes # 0.9 Eosinophils # 0.2 Basophils # 0.1 Nucleated Red Blood 0.0 Cells # Sodium Level 143 Potassium Level 5.2 H Chloride Level 103 Carbon Dioxide Level 34 H Anion Gap 6 Blood Urea Nitrogen 32 #H Creatinine 1.30 H Est Glomerular 57 L Filtrat Rate mL/min Glucose Level 173 Calcium Level 8.9 Phosphorus Level 3.4 Magnesium Level 2.5 Creatine Kinase 147 Bedside Glucose 178 Subjective 24 Hr Interval Summary Free Text/Dictation Patient sitting at edge of bed, dozing off. Discussed plan of care and restarting of diuretics which he appreciates. No overnight events. Exam/Review of Systems Exam Vitals Vital Signs Date Temp Pulse Resp B/P (MAP) Pulse Ox O2 O2 Flow FiO2 Time Delivery Rate 03/08/19 Nasal 2.0 08:15 Cannula 03/08/19 98.0 64 20 134/60 96 07:59 (84) 03/05/19 30 05:18 Intake and Output 03/07/19 03/07/19 03/08/19 1515:00 23:00 07:00 IntakeIntake Total 840 ml 200 ml OutputOutput Total 700 ml 450 ml 200 ml BalanceBalance 140 ml -250 ml -200 ml Exam General: Patient is laying in bed and answers questions appropriately, morbidly obese Eyes: EOMI, pupils reactive to light Neck: Supple, nontender, midline Respiratory: Clear to auscultation bilaterally. diminished. no wheezing Cardiovascular: regular rate and rhythm, no obvious murmurs Gastrointestinal: soft, nontender, protuberant. no rebound or guarding. +BS note d ext: Moves all extremities spontaneously Skin: Left foot ulcer with wound vac in place. venous stasis changes on bilateral shins Results Results 24hrs Laboratory Tests Test 03/07/19 12:52 03/07/19 17:52 03/07/19 22:22 03/08/19 01:54 Bedside Glucose 222 H 177 327 H 179 Test 03/08/19 04:28 03/08/19 08:51 White Blood Count 8.6 Red Blood Count 3.74 L Hemoglobin 10.3 L Hematocrit 33.3 L Mean Corpuscular 89.0 Volume Mean Corpuscular 27.5 L Hemoglobin Mean Corpuscular 30.9 L Hemoglobin Concent Red Cell 16.0 H Distribution Width Platelet Count 182 Mean Platelet Volume 12.4 H Immature 0.300 Granulocytes % Neutrophils % 63.2 Lymphocytes % 23.6 Monocytes % 10.1 Eosinophils % 2.2 Basophils % 0.6 Nucleated Red Blood 0.0 Cells % Immature 0.030 Granulocytes # Neutrophils # 5.5 Lymphocytes # 2.0 Monocytes # 0.9 Eosinophils # 0.2 Basophils # 0.1 Nucleated Red Blood 0.0 Cells # Sodium Level 143 Potassium Level 5.2 H Chloride Level 103 Carbon Dioxide Level 34 H Anion Gap 6 Blood Urea Nitrogen 32 #H Creatinine 1.30 H Est Glomerular 57 L Filtrat Rate mL/min Glucose Level 173 Calcium Level 8.9 Phosphorus Level 3.4 Magnesium Level 2.5 Creatine Kinase 147 Bedside Glucose 178 Medications Medication Current Medications IV Flush (NS 3 ml) 3 ml PER PROTOCOL IV ; Start 03/04/19 at 13:00 Ondansetron HCl (Zofran Inj) 4 mg Q6H PRN IV NAUSEA/VOMITING; Start 03/04/19 at 13:00 Acetaminophen (Tylenol Tab) 650 mg Q6H PRN PO .PAIN 1-3 OR TEMP; Start 03/04/19 at 13:00 Diagnostic Test (Pha) (Accu-Chek) 1 ea 02 XX Last administered on 03/08/19at 02:02; Admin Dose 1 EA; Start 03/05/19 at 02:00 Insulin Glargine (Lantus) 30 units DAILY@2000 SC Last administered on 03/07/19at 22:27; Admin Dose 30 UNITS; Start 03/04/19 at 20:00 Insulin Aspart (Novolog Insulin Pen) NOVOLOG *MILD* ALGORITHM WITH MEALS BEDTIME SC Last administered on 03/08/19at 08:59; Admin Dose 1 UNIT; Start 03/04/19 at 18:00 Amlodipine Besylate (Norvasc) 5 mg DAILY PO Last administered on 03/08/19 08:54; Admin Dose 5 MG; Start 03/05/19 at 09:00 Aspirin (Halfprin) 81 mg DAILY PO Last administered on 03/08/19at 08:52; Admin Dose 81 MG; Start 03/05/19 at 09:00 Carvedilol (Coreg) 12.5 mg BID PO Last administered on 03/08/19 08:53; Admin Dose 12.5 MG; Start 03/04/19 at 21:00 Insulin Aspart (Novolog Insulin Pen) 5 unit WITH MEALS SC Last administered on 03/08/19 08:58; Admin Dose 5 UNIT; Start 03/04/19 at 18:00 Atorvastatin Calcium (Lipitor) 20 mg HS PO Last administered on 03/07/19 22:18; Admin Dose 20 MG; Start 03/04/19 at 21:00 Miscellaneous Information 1 ea NOTE XX ; Start 03/04/19 at 13:30 Glucose (Glutose) 15 gm Q15M PRN PO DECREASED GLUCOSE; Start 03/04/19 at 13:30 Glucose (Glutose) 22.5 gm Q15M PRN PO DECREASED GLUCOSE; Start 03/04/19 at 13:30 Dextrose (D50w Syringe) 25 ml Q15M PRN IV DECREASED GLUCOSE; Start 03/04/19 at 13:30 Dextrose (D50w Syringe) 50 ml Q15M PRN IV DECREASED GLUCOSE; Start 03/04/19 at 13:30 Glucagon (Glucagen) 1 mg Q15M PRN IM DECREASED GLUCOSE; Start 03/04/19 at 13:30 Glucose (Glutose) 15 gm Q15M PRN BUCCAL DECREASED GLUCOSE; Start 03/04/19 at 13:30 Oxycodone HCl (Roxicodone) 15 mg Q4H PRN PO PAIN Last administered on 03/07/19 11:21; Admin Dose 15 MG; Start 03/04/19 at 14:00 Pantoprazole (Protonix Tab) 40 mg DAILY@06 PO Last administered on 03/08/19 06:34; Admin Dose 40 MG; Start 03/04/19 at 14:00 Sucralfate (Carafate Susp) 1 gm QID PO Last administered on 03/08/19 08:52; Admin Dose 1 GM; Start 03/04/19 at 17:00 Polyethylene Glycol (Miralax) 17 gm DAILY PRN PO CONSTIPATION Last administered on 03/06/19 11:02; Admin Dose 17 GM; Start 03/04/19 at 14:00 Bisacodyl (Dulcolax) 10 mg DAILY PRN PO CONSTIPATION Last administered on 03/06/19 11:02; Admin Dose 10 MG; Start 03/04/19 at 14:00 Albuterol/ Ipratropium (Duoneb) 3 ml Q6H RESP THERAPY HHN Last administered on 03/08/19 01:08; Admin Dose 3 ML; Start 03/05/19 at 16:00 Albuterol/ Ipratropium (Duoneb) 3 ml Q2H RESP THERAPY PRN HHN SHORTNESS OF BREATH; Start 03/05/19 at 16:00 Mineral Oil (Fleet Mineral Oil Enema) 133 ml DAILY PRN [place] constipation Last administered on 03/06/19 12:22; Admin Dose 133 ML; Start 03/05/19 at 17:00 Oxycodone HCl (Oxycontin) 80 mg Q12 PO Last administered on 03/08/19 08:52; Admin Dose 80 MG; Start 03/07/19 at 21:00 Senna/Docusate Sodium (Senokot-S) 2 tab BID PO Last administered on 03/08/19 08:52; Admin Dose 2 TAB; Start 03/07/19 at 21:00 Lubiprostone (Amitiza) 16 mcg BID PO Last administered on 03/08/19 08:52; Admin Dose 16 MCG; Start 03/07/19 at 21:00 Daptomycin 1000 mg/Sodium Chloride 100 ml @ 200 mls/hr Q24H IVPB Last administered on 03/07/19 18:20; Admin Dose 200 MLS/HR; Start 03/07/19 at 17:00 Bumetanide (Bumex) 1 mg DAILY PO Last administered on 03/08/19 09:59; Admin Dose 1 MG; Start 03/08/19 at 09:30 SHARON LOW MD March 08, 2019 11:58
--- NOTE | 2019-03-08 12:02 | CONS ---
Consult Date/Type/Reason Admit Date/Time March 04, 2019 at 12:37 Initial Consult Date 03/05/19 Requesting Provider: ANURAG TUCKER Date/Time of Note DATE: 03/08/19 TIME: 11:49 Subjective Patient seen bedside for left heel ulcer, now on wound VAC. Patient is doing better today, his abdominal pain improving. Objective Vitals Vital Signs Date Temp Pulse Resp B/P (MAP) Pulse Ox O2 O2 Flow FiO2 Time Delivery Rate 03/08/19 Nasal 2.0 08:15 Cannula 03/08/19 98.0 64 20 134/60 96 07:59 (84) 03/05/19 30 05:18 Intake and Output 03/07/19 03/07/19 03/08/19 1515:00 23:00 07:00 IntakeIntake Total 840 ml 200 ml OutputOutput Total 700 ml 450 ml 200 ml BalanceBalance 140 ml -250 ml -200 ml Exam Left heel wound VAC intact and running appropriately. Decreased leg swelling noted. No proximal streaking noted. Results/Medications Result Diagram: 03/08/19 0428 03/08/19 0428 Results 24 hrs Laboratory Tests Test 03/07/19 12:52 03/07/19 17:52 03/07/19 22:22 03/08/19 01:54 Bedside Glucose 222 H 177 327 H 179 Test 03/08/19 04:28 03/08/19 08:51 White Blood Count 8.6 Red Blood Count 3.74 L Hemoglobin 10.3 L Hematocrit 33.3 L Mean Corpuscular 89.0 Volume Mean Corpuscular 27.5 L Hemoglobin Mean Corpuscular 30.9 L Hemoglobin Concent Red Cell 16.0 H Distribution Width Platelet Count 182 Mean Platelet Volume 12.4 H Immature 0.300 Granulocytes % Neutrophils % 63.2 Lymphocytes % 23.6 Monocytes % 10.1 Eosinophils % 2.2 Basophils % 0.6 Nucleated Red Blood 0.0 Cells % Immature 0.030 Granulocytes # Neutrophils # 5.5 Lymphocytes # 2.0 Monocytes # 0.9 Eosinophils # 0.2 Basophils # 0.1 Nucleated Red Blood 0.0 Cells # Sodium Level 143 Potassium Level 5.2 H Chloride Level 103 Carbon Dioxide Level 34 H Anion Gap 6 Blood Urea Nitrogen 32 #H Creatinine 1.30 H Est Glomerular 57 L Filtrat Rate mL/min Glucose Level 173 Calcium Level 8.9 Phosphorus Level 3.4 Magnesium Level 2.5 Creatine Kinase 147 Bedside Glucose 178 Home Meds Active Scripts Lactobacillus Acidophilus* (Lactinex*) 1 Tab Chew, 1 TAB PO BID, #14 TAB Prov[facility] 01/25/19 Ciprofloxacin Hcl* (Ciprofloxacin Hcl*) 750 Mg Tablet, 750 MG PO BID, #10 TAB Prov:[facility] 01/25/19 Amlodipine Besylate* (Norvasc*) 5 Mg Tablet, 5 MG PO DAILY, #30 TAB 1 [facility]/19 Benazepril Hcl* (Benazepril Hcl*) 10 Mg Tablet, 10 MG PO DAILY, #30 TAB 1 Refill Prov:[facility] 01/25/19 Insulin Aspart* (Novolog Insulin Pen*) 100 Unit/Ml Soln, 14 UNIT SC WITH MEALS, #13 VIAL 1 Refill Prov:[facility] 01/25/19 Insulin Glargine* (Lantus*) 100 Unit/Ml Soln, 40 UNIT SC HS, #12 VIAL 1 [facility]/25/19 Reported Medications Spironolactone* (Aldactone*) 25 Mg Tablet, 25 MG PO DAILY, #30 TAB 01/23/19 Oxycodone Hcl* (Oxycontin*) 80 Mg Tab.er.12h, 80 MG PO Q12, TAB 01/23/19 Bumetanide* (Bumetanide*) 2 Mg Tablet, 2 MG PO DAILY, TAB 01/23/19 Carvedilol* (Carvedilol*) 12.5 Mg Tablet, 12.5 MG PO BID, TAB 11/16/14 Simvastatin (Simvastatin) 40 Mg Tablet, 40 MG PO HS, TAB 11/16/14 Aspirin* (Aspirin* EC) 81 Mg Tablet.dr, 81 MG PO DAILY, TAB 11/16/14 Gabapentin* (Gabapentin*) 400 Mg Capsule, 400 MG PO TID, CAP 11/16/14 Oxycodone Hcl* (IR) (Oxycodone Hcl*) 15 Mg Tablet, 15 MG PO Q4H PRN for PAIN, TAB 11/16/14 Medications Current Medications IV Flush (NS 3 ml) 3 ml PER PROTOCOL IV ; Start 03/04/19 at 13:00 Ondansetron HCl (Zofran Inj) 4 mg Q6H PRN IV NAUSEA/VOMITING; Start 03/04/19 at 13:00 Acetaminophen (Tylenol Tab) 650 mg Q6H PRN PO .PAIN 1-3 OR TEMP; Start 03/04/19 at 13:00 Diagnostic Test (Pha) (Accu-Chek) 1 ea 02 XX Last administered on 03/08/19at 02:02; Admin Dose 1 EA; Start 03/05/19 at 02:00 Insulin Glargine (Lantus) 30 units DAILY@2000 SC Last administered on 03/07/19 22:27; Admin Dose 30 UNITS; Start 03/04/19 at 20:00 Insulin Aspart (Novolog Insulin Pen) NOVOLOG *MILD* ALGORITHM WITH MEALS BEDTIME SC Last administered on 03/08/19 08:59; Admin Dose 1 UNIT; Start 03/04/19 at 18:00 Amlodipine Besylate (Norvasc) 5 mg DAILY PO Last administered on 03/08/19 08:54; Admin Dose 5 MG; Start 03/05/19 at 09:00 Aspirin (Halfprin) 81 mg DAILY PO Last administered on 03/08/19 08:52; Admin Dose 81 MG; Start 03/05/19 at 09:00 Carvedilol (Coreg) 12.5 mg BID PO Last administered on 03/08/19 08:53; Admin Dose 12.5 MG; Start 03/04/19 at 21:00 Insulin Aspart (Novolog Insulin Pen) 5 unit WITH MEALS SC Last administered on 03/08/19 08:58; Admin Dose 5 UNIT; Start 03/04/19 at 18:00 Atorvastatin Calcium (Lipitor) 20 mg HS PO Last administered on 03/07/19 22:18; Admin Dose 20 MG; Start 03/04/19 at 21:00 Miscellaneous Information 1 ea NOTE XX ; Start 03/04/19 at 13:30 Glucose (Glutose) 15 gm Q15M PRN PO DECREASED GLUCOSE; Start 03/04/19 at 13:30 Glucose (Glutose) 22.5 gm Q15M PRN PO DECREASED GLUCOSE; Start 03/04/19 at 13:30 Dextrose (D50w Syringe) 25 ml Q15M PRN IV DECREASED GLUCOSE; Start 03/04/19 at 13:30 Dextrose (D50w Syringe) 50 ml Q15M PRN IV DECREASED GLUCOSE; Start 03/04/19 at 13:30 Glucagon (Glucagen) 1 mg Q15M PRN IM DECREASED GLUCOSE; Start 03/04/19 at 13:30 Glucose (Glutose) 15 gm Q15M PRN BUCCAL DECREASED GLUCOSE; Start 03/04/19 at 13:30 Oxycodone HCl (Roxicodone) 15 mg Q4H PRN PO PAIN Last administered on 03/07/19 11:21; Admin Dose 15 MG; Start 03/04/19 at 14:00 Pantoprazole (Protonix Tab) 40 mg DAILY@06 PO Last administered on 03/08/19 06:34; Admin Dose 40 MG; Start 03/04/19 at 14:00 Sucralfate (Carafate Susp) 1 gm QID PO Last administered on 03/08/19 08:52; Admin Dose 1 GM; Start 03/04/19 at 17:00 Polyethylene Glycol (Miralax) 17 gm DAILY PRN PO CONSTIPATION Last administered on 03/06/19 11:02; Admin Dose 17 GM; Start 03/04/19 at 14:00 Bisacodyl (Dulcolax) 10 mg DAILY PRN PO CONSTIPATION Last administered on 03/06/19 11:02; Admin Dose 10 MG; Start 03/04/19 at 14:00 Albuterol/ Ipratropium (Duoneb) 3 ml Q6H RESP THERAPY HHN Last administered on 03/08/19 01:08; Admin Dose 3 ML; Start 03/05/19 at 16:00 Albuterol/ Ipratropium (Duoneb) 3 ml Q2H RESP THERAPY PRN HHN SHORTNESS OF BREATH; Start 03/05/19 at 16:00 Mineral Oil (Fleet Mineral Oil Enema) 133 ml DAILY PRN [place] constipation Last administered on 03/06/19 12:22; Admin Dose 133 ML; Start 03/05/19 at 17:00 Oxycodone HCl (Oxycontin) 80 mg Q12 PO Last administered on 03/08/19 08:52; Admin Dose 80 MG; Start 03/07/19 at 21:00 Senna/Docusate Sodium (Senokot-S) 2 tab BID PO Last administered on 03/08/19 08:52; Admin Dose 2 TAB; Start 03/07/19 at 21:00 Lubiprostone (Amitiza) 16 mcg BID PO Last administered on 03/08/19 08:52; Admin Dose 16 MCG; Start 03/07/19 at 21:00 Daptomycin 1000 mg/Sodium Chloride 100 ml @ 200 mls/hr Q24H IVPB Last administered on 03/07/19 18:20; Admin Dose 200 MLS/HR; Start 03/07/19 at 17:00 Bumetanide (Bumex) 1 mg DAILY PO Last administered on 03/08/19 09:59; Admin Dose 1 MG; Start 03/08/19 at 09:30 Assessment/Plan Assessment/Plan (Daily) 53 yo male with history of DM with left heel ulcer improving with wound VAC. -Continuing with wound VAC therapy recommended. Patient's wound VAC to be changed every -- by nursing staff. -Patient to continue with antibiotics per ID. -Patient would benefit from being discharged to rehab with wound VAC therapy. -Thank you Medicine team for taking care of this patient. -Will continue to follow patient. ELIA ORTEGA DPM March 08, 2019 12:02
[2019-03-08 13:36] VITALS: BP 131/80; PULSE 73; RESP 20
--- NOTE | 2019-03-08 14:20 | CONS ---
Assessment/Plan Assessment/Plan Hospital Course (Demo Recall) All noted, no acute events, no fevers Blood cultures remain negative Left heel wound culture grew staph species Antimicrobials: Daptomycin Physical examination: This is a morbidly obese well-developed middle-aged -[place] man who is alert in no distress head atraumatic normocephalic neck is supple chest rise symmetrical breath sounds diminished bases heart: S1- S2 abdomen obese bowel sounds hypoactive extremities with bilateral edema left heel wound VAC present Assessment: 1. Left heel nonhealing ulceration 2. Peripheral vascular disease 3. Morbid obesity 4. Diabetes 5. Acute possibly on chronic kidney disease Plan: Stable, podiatry rec-s noted, continue abx, anticipate dc on oral Doxycycline Consultation Date/Type/Reason Admit Date/Time March 04, 2019 at 12:37 Initial Consult Date 03/05/19 Type of Consult id Requesting Provider: ANURAG TUCKER Date/Time of Note DATE: 03/08/19 TIME: 14:18 Exam/Review of Systems Exam Vitals Vital Signs Date Temp Pulse Resp B/P (MAP) Pulse Ox O2 O2 Flow FiO2 Time Delivery Rate 03/08/19 97.7 73 20 131/80 99 13:36 (97) 03/08/19 2.0 13:14 03/08/19 Nasal 13:14 Cannula 03/05/19 30 05:18 Intake and Output 03/07/19 03/07/19 03/08/19 1515:00 23:00 07:00 IntakeIntake Total 840 ml 200 ml OutputOutput Total 700 ml 450 ml 200 ml BalanceBalance 140 ml -250 ml -200 ml Results Result Diagram: 03/08/19 0428 03/08/19 0428 Results 24hrs Laboratory Tests Test 03/07/19 17:52 03/07/19 22:22 03/08/19 01:54 03/08/19 04:28 Bedside Glucose 177 327 H 179 White Blood Count 8.6 Red Blood Count 3.74 L Hemoglobin 10.3 L Hematocrit 33.3 L Mean Corpuscular 89.0 Volume Mean Corpuscular 27.5 L Hemoglobin Mean Corpuscular 30.9 L Hemoglobin Concent Red Cell 16.0 H Distribution Width Platelet Count 182 Mean Platelet Volume 12.4 H Immature 0.300 Granulocytes % Neutrophils % 63.2 Lymphocytes % 23.6 Monocytes % 10.1 Eosinophils % 2.2 Basophils % 0.6 Nucleated Red Blood 0.0 Cells % Immature 0.030 Granulocytes # Neutrophils # 5.5 Lymphocytes # 2.0 Monocytes # 0.9 Eosinophils # 0.2 Basophils # 0.1 Nucleated Red Blood 0.0 Cells # Sodium Level 143 Potassium Level 5.2 H Chloride Level 103 Carbon Dioxide Level 34 H Anion Gap 6 Blood Urea Nitrogen 32 #H Creatinine 1.30 H Est Glomerular 57 L Filtrat Rate mL/min Glucose Level 173 Calcium Level 8.9 Phosphorus Level 3.4 Magnesium Level 2.5 Creatine Kinase 147 Test 03/08/19 08:51 03/08/19 13:09 Bedside Glucose 178 156 Medications Medication Current Medications IV Flush (NS 3 ml) 3 ml PER PROTOCOL IV ; Start 03/04/19 at 13:00 Ondansetron HCl (Zofran Inj) 4 mg Q6H PRN IV NAUSEA/VOMITING; Start 03/04/19 at 13:00 Acetaminophen (Tylenol Tab) 650 mg Q6H PRN PO .PAIN 1-3 OR TEMP; Start 03/04/19 at 13:00 Diagnostic Test (Pha) (Accu-Chek) 1 ea 02 XX Last administered on 03/08/19at 02:02; Admin Dose 1 EA; Start 03/05/19 at 02:00 Insulin Glargine (Lantus) 30 units DAILY@2000 SC Last administered on 03/07/19at 22:27; Admin Dose 30 UNITS; Start 03/04/19 at 20:00 Insulin Aspart (Novolog Insulin Pen) NOVOLOG *MILD* ALGORITHM WITH MEALS BEDTIME SC Last administered on 03/08/19 13:13; Admin Dose 1 UNIT; Start 03/04/19 at 18:00 Amlodipine Besylate (Norvasc) 5 mg DAILY PO Last administered on 03/08/19 08:54; Admin Dose 5 MG; Start 03/05/19 at 09:00 Aspirin (Halfprin) 81 mg DAILY PO Last administered on 03/08/19 08:52; Admin Dose 81 MG; Start 03/05/19 at 09:00 Carvedilol (Coreg) 12.5 mg BID PO Last administered on 03/08/19 08:53; Admin Dose 12.5 MG; Start 03/04/19 at 21:00 Insulin Aspart (Novolog Insulin Pen) 5 unit WITH MEALS SC Last administered on 03/08/19 13:13; Admin Dose 5 UNIT; Start 03/04/19 at 18:00 Atorvastatin Calcium (Lipitor) 20 mg HS PO Last administered on 03/07/19at 22:18; Admin Dose 20 MG; Start 03/04/19 at 21:00 Miscellaneous Information 1 ea NOTE XX ; Start 03/04/19 at 13:30 Glucose (Glutose) 15 gm Q15M PRN PO DECREASED GLUCOSE; Start 03/04/19 at 13:30 Glucose (Glutose) 22.5 gm Q15M PRN PO DECREASED GLUCOSE; Start 03/04/19 at 13:30 Dextrose (D50w Syringe) 25 ml Q15M PRN IV DECREASED GLUCOSE; Start 03/04/19 at 13:30 Dextrose (D50w Syringe) 50 ml Q15M PRN IV DECREASED GLUCOSE; Start 03/04/19 at 13:30 Glucagon (Glucagen) 1 mg Q15M PRN IM DECREASED GLUCOSE; Start 03/04/19 at 13:30 Glucose (Glutose) 15 gm Q15M PRN BUCCAL DECREASED GLUCOSE; Start 03/04/19 at 13:30 Oxycodone HCl (Roxicodone) 15 mg Q4H PRN PO PAIN Last administered on 03/07/19 11:21; Admin Dose 15 MG; Start 03/04/19 at 14:00 Pantoprazole (Protonix Tab) 40 mg DAILY@06 PO Last administered on 03/08/19at 06:34; Admin Dose 40 MG; Start 03/04/19 at 14:00 Sucralfate (Carafate Susp) 1 gm QID PO Last administered on 03/08/19at 13:09; Admin Dose 1 GM; Start 03/04/19 at 17:00 Polyethylene Glycol (Miralax) 17 gm DAILY PRN PO CONSTIPATION Last administered on 03/06/19 11:02; Admin Dose 17 GM; Start 03/04/19 at 14:00 Bisacodyl (Dulcolax) 10 mg DAILY PRN PO CONSTIPATION Last administered on 03/06/19 11:02; Admin Dose 10 MG; Start 03/04/19 at 14:00 Albuterol/ Ipratropium (Duoneb) 3 ml Q6H RESP THERAPY HHN Last administered on 03/08/19 13:14; Admin Dose 3 ML; Start 03/05/19 at 16:00 Albuterol/ Ipratropium (Duoneb) 3 ml Q2H RESP THERAPY PRN HHN SHORTNESS OF BREATH; Start 03/05/19 at 16:00 Mineral Oil (Fleet Mineral Oil Enema) 133 ml DAILY PRN [place] constipation Last administered on 03/06/19 12:22; Admin Dose 133 ML; Start 03/05/19 at 17:00 Oxycodone HCl (Oxycontin) 80 mg Q12 PO Last administered on 03/08/19 08:52; Admin Dose 80 MG; Start 03/07/19 at 21:00 Senna/Docusate Sodium (Senokot-S) 2 tab BID PO Last administered on 03/08/19 08:52; Admin Dose 2 TAB; Start 03/07/19 at 21:00 Lubiprostone (Amitiza) 16 mcg BID PO Last administered on 03/08/19 08:52; Admin Dose 16 MCG; Start 03/07/19 at 21:00 Daptomycin 1000 mg/Sodium Chloride 100 ml @ 200 mls/hr Q24H IVPB Last administered on 03/07/19 18:20; Admin Dose 200 MLS/HR; Start 03/07/19 at 17:00 Bumetanide (Bumex) 1 mg DAILY PO Last administered on 03/08/19 09:59; Admin Dose 1 MG; Start 03/08/19 at 09:30 JEREMIAH RUBIO NP March 08, 2019 14:20
[2019-03-08] MEDS: oxyCODONE 15 MG TAB PO PRN (14:38)
[2019-03-08] MEDS: DAPTOMYCIN 1,000 MG in SOD CHLORIDE 0.9% 100 ML IVPB SCH (17:31)
[2019-03-08 20:43] VITALS: BP 116/58; PULSE 82; RESP 18
[2019-03-08] MEDS: ATORVASTATIN 20 MG TAB PO SCH (21:50)
[2019-03-08] MEDS: INSULIN GLARGINE [LANTus] (100 UNITS/ML) SYG SC SCH (21:53)
[2019-03-09] MEDS: ALBUTEROL/IPRATROPIUM (NEB) 3 ML AMP HHN SCH ×3 (01:35→13:55)
[2019-03-09 01:51] VITALS: BP 107/58; PULSE 65; RESP 18
[2019-03-09] MEDS: ACCU-CHEK XX SCH (02:00)
[2019-03-09] MEDS: PANTOPRAZOLE (EC) 40 MG TAB PO SCH (06:02)
[2019-03-09 07:48] VITALS: BP 133/67; PULSE 63; RESP 20
[2019-03-09] MEDS: INSULIN ASPART [NOVOLOG] 3 ML PEN SC SCH ×4 (08:00→13:34)
[2019-03-09] MEDS: BUMETANIDE 1 MG TAB PO SCH (08:33)
[2019-03-09] MEDS: SENNA/DOCUSATE NA (8.6MG/50MG) TAB PO SCH (08:33)
[2019-03-09] MEDS: SUCRALFATE (100 MG/ML) 10ML CUP PO SCH ×2 (08:33→13:33)
[2019-03-09] MEDS: AMLODIPINE 5 MG TAB PO SCH (08:34)
[2019-03-09] MEDS: ASPIRIN (EC) 81 MG TAB PO SCH (08:34)
[2019-03-09] MEDS: LUBIPROSTONE 8 MCG CAPSULE PO SCH (08:34)
[2019-03-09] MEDS: oxyCODONE (CR) 40 MG TAB [oxyCONTIN] PO SCH (08:38)
--- NOTE | 2019-03-09 10:35 | PN ---
DATE: 03/09/2019 SUBJECTIVE: The patient is stable, no events overnight. The patient tolerated diuretic therapy. No other events noted. OBJECTIVE: VITAL SIGNS: Blood pressure is 133/67, respirations 20, pulse 63, temperature 97.9. HEENT: Head is normocephalic. NECK: Supple. HEART: Regular rate. LUNGS: Show diminished breath sounds at the base. ABDOMEN: Soft, nontender to palpation without rebound or guarding. EXTREMITIES: Negative for clubbing, cyanosis, positive edema. DERMATOLOGIC: No rashes. MUSCULOSKELETAL: No joint effusion. NEUROLOGIC: No change in exam. MEDICATIONS: Reviewed. LABORATORY DATA: Reviewed. ASSESSMENT AND PLAN: 1. Nonoliguric acute kidney injury with a previous baseline creatinine of 1.0 mg/dL. Etiology of [place] kidney injury was multifactorial secondary to hemodynamics, KEVON inhibitor, and diuretic use. Issa al functions improved. The patient has been reintroduced on Bumex. We will increase dose to 1 mg b. i.d., monitor renal function closely. 2. Lower extremity edema, etiology is likely due to venous insufficiency. Continue Bumex. Monitor electrolytes closely. 3. Mild hyperkalemia, resolved. 4. Anemia. Monitor hemoglobin and hematocrit levels. 5. Mineral bone disorder, monitor calcium and phosphorus levels. 6. Left foot ulcer. Continue wound care, continue antibiotic therapy. 7. Diabetes. Continue current insulin regimen. 8. Sleep apnea. Continue CPAP. 9. Obesity. Continue dietary modification. 10. Hypertension. Continue current blood pressure regimen. 11. Chronic pain syndrome. Dictated By: CHRISTIANO FLOYD DO NR/NTS Conf#: [id number] DID#: [id number] CC: ELIA ORTEGA DPM; DARLIN YOUNG MD; SHARON LOW MD;*EndCC*
--- NOTE | 2019-03-09 11:56 | PN ---
Date/Time of Note Date/Time of Note DATE: 03/09/19 TIME: 11:50 Assessment/Plan VTE Prophylaxis Risk score (from Ns)>0 risk: 3 SCD applied (from Ns): No SCD contraindicated: other Pharmacological prophylaxis: NA/contraindicated Pharm contraindication: patient refusal Lines/Catheters IV Catheter Type (from [facility], [place]): Saline Lock Urinary Cath still in place: No Assessment/Plan Assessment/Plan 1. Acute on chronic left foot ulcer- healing - continue current care - Podiatry consultation appreciated and patient to continue wound VAC after d/c with dressing changes M, W,and F - ID on board for antibiotic recommendations and will dc on Doxy PO 2. Constipation - bowel regime on board and started on Amitiza - most likely from chronic opioid use 3. Acute abdominal pain - GI recommendations appreciated. Relieved after BM 4. Acute kidney injury versus chronic kidney disease - Nephrology on board and Cr normalized. Will increase Bumex and have renal function checked in 3 days. Follow up with outpatient Construction Electrician 5. Diabetes mellitus - ISS and accuchecks - Lantus on board and will adjust as needed 6. Obstructive sleep apnea - CPAP qhs 7. Obesity - Chronic, monitor, dietary restriction advised 8. Peripheral vascular disease - Follow-up outpatient with his multiple specialists 9. Hypertension - Continue home meds 10. History of pituitary tumor - Chronic, follows up with endocrinology in the outpatient setting 11. Chronic anemia - stable 12. Chronic pain - on home regime 13. Disposition - Medically stable for discharge to SNF Result Diagram: 03/08/19 0428 03/09/19 0502 Results 24hrs Laboratory Tests Test 03/08/19 13:09 03/08/19 17:34 03/08/19 21:44 03/09/19 05:02 Bedside Glucose 156 113 157 Sodium Level 143 Potassium Level 4.5 Chloride Level 104 Carbon Dioxide Level 35 H Anion Gap 4 L Blood Urea Nitrogen 22 H Creatinine 1.12 Est Glomerular > 60 Filtrat Rate mL/min Glucose Level 116 # Calcium Level 9.0 Phosphorus Level 3.4 Magnesium Level 2.3 Test 03/09/19 08:38 Bedside Glucose 119 Subjective 24 Hr Interval Summary Free Text/Dictation Patient states hes feeling well and denies any acute issues. Was concerned about took many BMs following Kayexalate yesterday but assured was one time. no acute overnight events Exam/Review of Systems Exam Vitals Vital Signs Date Temp Pulse Resp B/P (MAP) Pulse Ox O2 O2 Flow FiO2 Time Delivery Rate 03/09/19 2.0 09:05 03/09/19 Nasal 08:00 Cannula 03/09/19 97.9 63 20 133/67 99 07:48 (89) Intake and Output 03/08/19 03/08/19 03/09/19 1515:00 23:00 07:00 IntakeIntake Total 480 ml 580 ml OutputOutput Total 2601 ml 800 ml 300 ml BalanceBalance -2121 ml -220 ml -300 ml Exam General: Patient is sitting at edge of bed, no acute distress, morbidly obese Respiratory: Clear to auscultation bilaterally. diminished. no wheezing Cardiovascular: regular rate and rhythm, no obvious murmurs Gastrointestinal: soft, nontender, protuberant. no rebound or guarding. +BS noted ext: Moves all extremities spontaneously Skin: Left foot ulcer with wound vac in place. venous stasis changes on bilateral shins Results Results 24hrs Laboratory Tests Test 03/08/19 13:09 03/08/19 17:34 03/08/19 21:44 03/09/19 05:02 Bedside Glucose 156 113 157 Sodium Level 143 Potassium Level 4.5 Chloride Level 104 Carbon Dioxide Level 35 H Anion Gap 4 L Blood Urea Nitrogen 22 H Creatinine 1.12 Est Glomerular > 60 Filtrat Rate mL/min Glucose Level 116 # Calcium Level 9.0 Phosphorus Level 3.4 Magnesium Level 2.3 Test 03/09/19 08:38 Bedside Glucose 119 Medications Medication Current Medications IV Flush (NS 3 ml) 3 ml PER PROTOCOL IV ; Start 03/04/19 at 13:00 Ondansetron HCl (Zofran Inj) 4 mg Q6H PRN IV NAUSEA/VOMITING; Start 03/04/19 at 13:00 Acetaminophen (Tylenol Tab) 650 mg Q6H PRN PO .PAIN 1-3 OR TEMP; Start 03/04/19 at 13:00 Diagnostic Test (Pha) (Accu-Chek) 1 ea 02 XX Last administered on 03/08/19at 02:02; Admin Dose 1 EA; Start 03/05/19 at 02:00 Insulin Glargine (Lantus) 30 units DAILY@2000 SC Last administered on 03/08/19at 21:53; Admin Dose 30 UNITS; Start 03/04/19 at 20:00 Insulin Aspart (Novolog Insulin Pen) NOVOLOG *MILD* ALGORITHM WITH MEALS BEDTIME SC Last administered on 03/08/19at 13:13; Admin Dose 1 UNIT; Start 03/04/19 at 18:00 Amlodipine Besylate (Norvasc) 5 mg DAILY PO Last administered on 03/09/19at 08:34; Admin Dose 5 MG; Start 03/05/19 at 09:00 Aspirin (Halfprin) 81 mg DAILY PO Last administered on 03/09/19at 08:34; Admin Dose 81 MG; Start 03/05/19 at 09:00 Carvedilol (Coreg) 12.5 mg BID PO Last administered on 03/09/19 08:34; Admin Dose 12.5 MG; Start 03/04/19 at 21:00 Insulin Aspart (Novolog Insulin Pen) 5 unit WITH MEALS SC Last administered on 03/09/19at 08:41; Admin Dose 5 UNIT; Start 03/04/19 at 18:00 Atorvastatin Calcium (Lipitor) 20 mg HS PO Last administered on 03/08/19at 21:50; Admin Dose 20 MG; Start 03/04/19 at 21:00 Miscellaneous Information 1 ea NOTE XX ; Start 03/04/19 at 13:30 Glucose (Glutose) 15 gm Q15M PRN PO DECREASED GLUCOSE; Start 03/04/19 at 13:30 Glucose (Glutose) 22.5 gm Q15M PRN PO DECREASED GLUCOSE; Start 03/04/19 at 13:30 Dextrose (D50w Syringe) 25 ml Q15M PRN IV DECREASED GLUCOSE; Start 03/04/19 at 13:30 Dextrose (D50w Syringe) 50 ml Q15M PRN IV DECREASED GLUCOSE; Start 03/04/19 at 13:30 Glucagon (Glucagen) 1 mg Q15M PRN IM DECREASED GLUCOSE; Start 03/04/19 at 13:30 Glucose (Glutose) 15 gm Q15M PRN BUCCAL DECREASED GLUCOSE; Start 03/04/19 at 13:30 Oxycodone HCl (Roxicodone) 15 mg Q4H PRN PO PAIN Last administered on 03/08/19at 14:38; Admin Dose 15 MG; Start 03/04/19 at 14:00 Pantoprazole (Protonix Tab) 40 mg DAILY@06 PO Last administered on 03/09/19 06:02; Admin Dose 40 MG; Start 03/04/19 at 14:00 Sucralfate (Carafate Susp) 1 gm QID PO Last administered on 03/09/19 08:33; Admin Dose 1 GM; Start 03/04/19 at 17:00 Polyethylene Glycol (Miralax) 17 gm DAILY PRN PO CONSTIPATION Last administered on 03/06/19 11:02; Admin Dose 17 GM; Start 03/04/19 at 14:00 Bisacodyl (Dulcolax) 10 mg DAILY PRN PO CONSTIPATION Last administered on 03/06/19 11:02; Admin Dose 10 MG; Start 03/04/19 at 14:00 Albuterol/ Ipratropium (Duoneb) 3 ml Q6H RESP THERAPY HHN Last administered on 03/08/19 13:14; Admin Dose 3 ML; Start 03/05/19 at 16:00 Albuterol/ Ipratropium (Duoneb) 3 ml Q2H RESP THERAPY PRN HHN SHORTNESS OF BREATH; Start 03/05/19 at 16:00 Mineral Oil (Fleet Mineral Oil Enema) [address] constipation Last administered on 03/06/19 12:22; Admin Dose 133 ML; Start 03/05/19 at 17:00 Oxycodone HCl (Oxycontin) 80 mg Q12 PO Last administered on 03/09/19 08:38; Admin Dose 80 MG; Start 03/07/19 at 21:00 Senna/Docusate Sodium (Senokot-S) 2 tab BID PO Last administered on 03/09/19 08:33; Admin Dose 2 TAB; Start 03/07/19 at 21:00 Lubiprostone (Amitiza) 16 mcg BID PO Last administered on 03/09/19 08:34; Admin Dose 16 MCG; Start 03/07/19 at 21:00 Daptomycin 1000 mg/Sodium Chloride 100 ml @ 200 mls/hr Q24H IVPB Last administered on 03/08/19 17:31; Admin Dose 200 MLS/HR; Start 03/07/19 at 17:00 Bumetanide (Bumex) 1 mg BID DIURETICS PO ; Start 03/09/19 at 18:00 SHARON LOW MD March 09, 2019 11:56
[2019-03-09] MEDS ORDERED: BISA5TAB6 PO (12:03)
[2019-03-09] MEDS ORDERED: LUBI8CAP4 PO (12:03)
[2019-03-09] MEDS ORDERED: DOXY100T2 PO (12:03)
[2019-03-09] MEDS ORDERED: NOVO3I SC (12:03)
[2019-03-09] MEDS ORDERED: BUME1TAB PO (12:03)
[2019-03-09] MEDS ORDERED: LANT3I SC (12:03)
--- NOTE | 2019-03-09 12:07 | PDOCDIS ---
Discharge Instructions DIAGNOSIS Discharge Diagnosis 1. Acute on chronic left foot ulcer- stable 2. Constipation 3. Acute kidney injury versus chronic kidney disease- resolved 4. Diabetes mellitus 5. Obstructive sleep apnea 6. Obesity 7. Peripheral vascular disease 8. Hypertension 9. History of pituitary tumor 10. Chronic anemia 11. Chronic pain CONDITION [id number] Patient Condition: [id number] Stable HOME CARE INSTRUCTIONS: [id number] Diet Instructions: [id number] Low Fat /Cholesterol FOLLOW UP/APPOINTMENTS Follow-up Plan 1. Follow up with your Primary care physician in 1-2 weeks 2. Follow up with your Enterprise Resource Planner in 1 week with repeat BMP to check your renal function 3. Follow up with your Part Time to monitor your foot ulcer. Call his office to make an appointment 4. Take all medication as prescribed. It is important to take stool softeners while on your home dose of opioids to prevent constipation and abdominal pain 5. If experiencing any concerning symptoms, please return to the nearest [facility] department SHARON LOW MD March 09, 2019 12:07
[2019-03-09] MEDS ORDERED: DOXYCYCLINE 100 MG TAB PO SCH (12:30)
[2019-03-09] MEDS: oxyCODONE 15 MG TAB PO PRN (13:33)
--- NOTE | 2019-03-09 13:57 | CONS ---
Assessment/Plan Assessment/Plan Hospital Course (Demo Recall) All noted, no acute events, no fevers. Alert, looks comfortable Blood cultures remain negative Left heel wound culture grew staph species Antimicrobials: Daptomycin Physical examination: This is a morbidly obese well-developed middle-aged -[place]ese man who is alert in no distress head atraumatic normocephalic neck is supple chest rise symmetrical breath sounds diminished bases heart: S1- S2 abdomen obese bowel sounds hypoactive extremities with bilateral edema left heel wound VAC present Assessment: 1. Left heel nonhealing ulceration 2. Peripheral vascular disease 3. Morbid obesity 4. Diabetes 5. Acute possibly on chronic kidney disease Plan: Stable, podiatry rec-s noted, continue abx, anticipate dc on oral Doxycycline to complete 2 weeks antibiotics Consultation Date/Type/Reason Admit Date/Time March 04, 2019 at 12:37 Initial Consult Date 03/05/19 Type of Consult id Requesting Provider: ANURAG TUCKER Date/Time of Note DATE: 03/09/19 TIME: 13:56 Exam/Review of Systems Exam Vitals Vital Signs Date Temp Pulse Resp B/P (MAP) Pulse Ox O2 O2 Flow FiO2 Time Delivery Rate 03/09/19 2.0 09:05 03/09/19 Nasal 08:00 Cannula 03/09/19 97.9 63 20 133/67 99 07:48 (89) Intake and Output 03/08/19 03/08/19 03/09/19 1515:00 23:00 07:00 IntakeIntake Total 480 ml 580 ml OutputOutput Total 2601 ml 800 ml 300 ml BalanceBalance -2121 ml -220 ml -300 ml Results Result Diagram: 03/08/19 0428 03/09/19 0502 Results 24hrs Laboratory Tests Test 03/08/19 17:34 03/08/19 21:44 03/09/19 05:02 03/09/19 08:38 Bedside Glucose 113 157 119 Sodium Level 143 Potassium Level 4.5 Chloride Level 104 Carbon Dioxide Level 35 H Anion Gap 4 L Blood Urea Nitrogen 22 H Creatinine 1.12 Est Glomerular > 60 Filtrat Rate mL/min Glucose Level 116 # Calcium Level 9.0 Phosphorus Level 3.4 Magnesium Level 2.3 Test 03/09/19 13:14 Bedside Glucose 135 Medications Medication Current Medications IV Flush (NS 3 ml) 3 ml PER PROTOCOL IV ; Start 03/04/19 at 13:00 Ondansetron HCl (Zofran Inj) 4 mg Q6H PRN IV NAUSEA/VOMITING; Start 03/04/19 at 13:00 Acetaminophen (Tylenol Tab) 650 mg Q6H PRN PO .PAIN 1-3 OR TEMP; Start 03/04/19 at 13:00 Diagnostic Test (Pha) (Accu-Chek) 1 ea 02 XX Last administered on 03/08/19at 02:02; Admin Dose 1 EA; Start 03/05/19 at 02:00 Insulin Glargine (Lantus) 30 units DAILY@2000 SC Last administered on 03/08/19 21:53; Admin Dose 30 UNITS; Start 03/04/19 at 20:00 Insulin Aspart (Novolog Insulin Pen) NOVOLOG *MILD* ALGORITHM WITH MEALS BEDTIME SC Last administered on 03/08/19 13:13; Admin Dose 1 UNIT; Start 03/04/19 at 18:00 Amlodipine Besylate (Norvasc) 5 mg DAILY PO Last administered on 03/09/19 08:34; Admin Dose 5 MG; Start 03/05/19 at 09:00 Aspirin (Halfprin) 81 mg DAILY PO Last administered on 03/09/19 08:34; Admin Dose 81 MG; Start 03/05/19 at 09:00 Carvedilol (Coreg) 12.5 mg BID PO Last administered on 03/09/19 08:34; Admin Dose 12.5 MG; Start 03/04/19 at 21:00 Insulin Aspart (Novolog Insulin Pen) 5 unit WITH MEALS SC Last administered on 03/09/19 13:34; Admin Dose 5 UNIT; Start 03/04/19 at 18:00 Atorvastatin Calcium (Lipitor) 20 mg HS PO Last administered on 03/08/19 21:50; Admin Dose 20 MG; Start 03/04/19 at 21:00 Miscellaneous Information 1 ea NOTE XX ; Start 03/04/19 at 13:30 Glucose (Glutose) 15 gm Q15M PRN PO DECREASED GLUCOSE; Start 03/04/19 at 13:30 Glucose (Glutose) 22.5 gm Q15M PRN PO DECREASED GLUCOSE; Start 03/04/19 at 13:30 Dextrose (D50w Syringe) 25 ml Q15M PRN IV DECREASED GLUCOSE; Start 03/04/19 at 13:30 Dextrose (D50w Syringe) 50 ml Q15M PRN IV DECREASED GLUCOSE; Start 03/04/19 at 13:30 Glucagon (Glucagen) 1 mg Q15M PRN IM DECREASED GLUCOSE; Start 03/04/19 at 13:30 Glucose (Glutose) 15 gm Q15M PRN BUCCAL DECREASED GLUCOSE; Start 03/04/19 at 13:30 Oxycodone HCl (Roxicodone) 15 mg Q4H PRN PO PAIN Last administered on 03/09/19 13:33; Admin Dose 15 MG; Start 03/04/19 at 14:00 Pantoprazole (Protonix Tab) 40 mg DAILY@06 PO Last administered on 03/09/19 06:02; Admin Dose 40 MG; Start 03/04/19 at 14:00 Sucralfate (Carafate Susp) 1 gm QID PO Last administered on 03/09/19 13:33; Admin Dose 1 GM; Start 03/04/19 at 17:00 Polyethylene Glycol (Miralax) 17 gm DAILY PRN PO CONSTIPATION Last administered on 03/06/19 11:02; Admin Dose 17 GM; Start 03/04/19 at 14:00 Bisacodyl (Dulcolax) 10 mg DAILY PRN PO CONSTIPATION Last administered on 03/06/19 11:02; Admin Dose 10 MG; Start 03/04/19 at 14:00 Albuterol/ Ipratropium (Duoneb) 3 ml Q6H RESP THERAPY HHN Last administered on 03/08/19 13:14; Admin Dose 3 ML; Start 03/05/19 at 16:00 Albuterol/ Ipratropium (Duoneb) 3 ml Q2H RESP THERAPY PRN HHN SHORTNESS OF BREATH; Start 03/05/19 at 16:00 Mineral Oil (Fleet Mineral Oil Enema) 133 ml DAILY PRN [place] constipation Last administered on 03/06/19 12:22; Admin Dose 133 ML; Start 03/05/19 at 17:00 Oxycodone HCl (Oxycontin) 80 mg Q12 PO Last administered on 03/09/19 08:38; Admin Dose 80 MG; Start 03/07/19 at 21:00 Senna/Docusate Sodium (Senokot-S) 2 tab BID PO Last administered on 03/09/19at 08:33; Admin Dose 2 TAB; Start 03/07/19 at 21:00 Lubiprostone (Amitiza) 16 mcg BID PO Last administered on 03/09/19at 08:34; Admin Dose 16 MCG; Start 03/07/19 at 21:00 Bumetanide (Bumex) 1 mg BID DIURETICS PO ; Start 03/09/19 at 18:00 Doxycycline Hyclate (Vibramycin) 100 mg BID PO Last administered on 03/09/19at 13:33; Admin Dose 100 MG; Start 03/09/19 at 12:30 JEREMIAH RUBIO NP March 09, 2019 13:56
[2019-03-09 14:20] VITALS: BP 135/63; PULSE 63; RESP 20
--- NOTE | 2019-03-09 14:44 | DS ---
Date/Time of Note Date/Time of Note DATE: 03/09/19 TIME: 14:44 Discharge Summary Admission/Discharge Info Admit Date/Time March 04, 2019 at 12:37 Discharge Date/Time 03/09/19 Discharge Diagnosis 1. Acute on chronic left foot ulcer- stable 2. Constipation 3. Acute kidney injury versus chronic kidney disease- resolved 4. Diabetes mellitus 5. Obstructive sleep apnea 6. Obesity 7. Peripheral vascular disease 8. Hypertension 9. History of pituitary tumor 10. Chronic anemia 11. Chronic pain Patient Condition: Stable Consults Podiatry- Dr. Beckford Infectious disease- Dr. Cabello GI- Dr. Ledezma Nephrology- Dr. Rojo Hx of Present Illness Patient is a -[place] male with a past medical history significant for hypertension, peripheral vascular disease, diabetes mellitus, pituitary tumor, obstructive sleep apnea, chronic left foot ulcer, obesity, who presents to [facility] after following up in the office of his plaster mold maker. Podiatry took a look at his left foot ulcer which is chronic and stated that he would need to be sent to the hospital for IV antibiotics. Other than that issue, patient only complains of this new onset abdominal pain that is mild in nature however it is disturbing him, patient states that there was mild increase in swelling over his abdomen that is worse with different positions. Patient states that he did not change his diet or do anything different. Patient currently does not state he has chest pain, shortness of breath, dizziness, new leg pain, new neck pain, new skin issues. Hospital Course Patient was admitted for treatment of acute on chronic left foot wound and Podiatry was consulted. Wound vac order was placed and Infectious disease was consulted for antibiotic management. Given patients vague abdominal symptoms, GI was consulted and determined to be secondary to constipation from chronic opioid use. He was started on bowel regime and after BM, abdominal pain resolved. Patient was found with SAI on CKD and Nephrology was consulted for recommendations. Diuretics, Aldactone, and KEVON were held and antibiotics were adjusted with normalization of his renal function during course of hospitalization. Diuretics were reintroduced without any worsening in renal function. Patient was continued on wound vac and ID transitioned antibiotics to PO. Patients presenting symptoms improved significantly and on day of discharge vitals and physical exam were stable. Patient was stable for discharge to SNF. Home Meds Active Scripts Lactobacillus Acidophilus* (Lactinex*) 1 Tab Chew, 1 TAB PO BID, #14 TAB Prov:SANTO HENLEY . 01/25/19 Ciprofloxacin Hcl* (Ciprofloxacin Hcl*) 750 Mg Tablet, 750 MG PO BID, #10 TAB Prov:SANTO HENLEY . 01/25/19 Amlodipine Besylate* (Norvasc*) 5 Mg Tablet, 5 MG PO DAILY, #30 TAB 1 [facility]/19 Benazepril Hcl* (Benazepril Hcl*) 10 Mg Tablet, 10 MG PO DAILY, #30 TAB 1 [facility] 01/25/19 Insulin Aspart* (Novolog Insulin Pen*) 100 Unit/Ml Soln, 14 UNIT SC WITH MEALS, #13 VIAL 1 [facility] 01/[facility]/19 Insulin Glargine* (Lantus*) 100 Unit/Ml Soln, 40 UNIT SC HS, #12 VIAL 1 [facility] 01/25/19 Reported Medications Spironolactone* (Aldactone*) 25 Mg Tablet, 25 MG PO DAILY, #30 TAB 01/23/19 Oxycodone Hcl* (Oxycontin*) 80 Mg Tab.er.12h, 80 MG PO Q12, TAB 01/23/19 Bumetanide* (Bumetanide*) 2 Mg Tablet, 2 MG PO DAILY, TAB 01/23/19 Carvedilol* (Carvedilol*) 12.5 Mg Tablet, 12.5 MG PO BID, TAB 11/16/14 Simvastatin (Simvastatin) 40 Mg Tablet, 40 MG PO HS, TAB 11/16/14 Aspirin* (Aspirin* EC) 81 Mg Tablet.dr, 81 MG PO DAILY, TAB 11/16/14 Gabapentin* (Gabapentin*) 400 Mg Capsule, 400 MG PO TID, CAP 11/16/14 Oxycodone Hcl* (IR) (Oxycodone Hcl*) 15 Mg Tablet, 15 MG PO Q4H PRN for PAIN, TAB 11/16/14 Follow-up Plan 1. Follow up with your Primary care physician in 1-2 weeks 2. Follow up with your Porcelain Enamel Laborer in 1 week with repeat BMP to check your renal function 3. Follow up with your Chicken Catcher to monitor your foot ulcer. Call his office to make an appointment 4. Take all medication as prescribed. It is important to take stool softeners while on your home dose of opioids to prevent constipation and abdominal pain 5. If experiencing any concerning symptoms, please return to the nearest [facility] department Primary Care Provider Not On Staff Doctor Time spent on discharge: > 30 minutes Pending Labs Laboratory Tests Test 03/08/19 17:34 03/08/19 21:44 03/09/19 05:02 03/09/19 08:38 Bedside 113 157 119 Glucose mg/dL (70-220) mg/dL (70-220) mg/dL (70-220) Sodium Level 143 mmol/L (135-14 4) Potassium 4.5 Level mmol/L (3.5-5. 1) Chloride Level 104 mmol/L (97-110 ) Carbon Dioxide 35 Level mmol/L (21-31) Anion Gap 4 (5-13) Blood Urea 22 Nitrogen mg/dl (7-20) Creatinine 1.12 mg/dl (0.61-1. 24) Est Glomerular > 60 Filtrat mL/min (>60) Rate mL/min Glucose Level 116 mg/dl (70-220) Calcium Level 9.0 mg/dl (8.4-10. 2) Phosphorus 3.4 Level mg/dl (2.5-4.9 ) Magnesium 2.3 Level mg/dl (1.7-2.5 ) Test 03/09/19 13:14 Bedside 135 Glucose mg/dL (70-220) SHARON LOW MD March 09, 2019 14:44
[2019-03-09] MEDS ORDERED: BUMETANIDE 1 MG TAB PO SCH (18:00)
== END 2019-03-09 17:35 | DRG 637 ==
LOC: 2NE 12:37
PROVIDERS: ADMIT Internal Medicine; ATTEND Internal Medicine
PROC: 2W1TX6Z Compression of Left Foot using Pressure Dressing (ICD-10-PCS; principal; 2019-03-04)
PROC: 5A09357 Assistance with Respiratory Ventilation, Less than 24 Consecutive Hours, Continuous Positive Airway Pressure (ICD-10-PCS; 2019-03-05)
DX: E11.621 Type 2 diabetes mellitus with foot ulcer (principal); J96.01 Acute respiratory failure with hypoxia; Z68.43 Body mass index [BMI] 50.0-59.9, adult; E87.2 Acidosis; L97.429 Non-pressure chronic ulcer of left heel and midfoot with unspecified severity; G92 Toxic encephalopathy; N17.9 Acute kidney failure, unspecified; E11.51 Type 2 diabetes mellitus with diabetic peripheral angiopathy without gangrene; G47.33 Obstructive sleep apnea (adult) (pediatric); E66.9 Obesity, unspecified; K59.00 Constipation, unspecified; D49.7 Neoplasm of unspecified behavior of endocrine glands and other parts of nervous system; I12.9 Hypertensive chronic kidney disease with stage 1 through stage 4 chronic kidney disease, or unspecified chronic kidney disease; E11.22 Type 2 diabetes mellitus with diabetic chronic kidney disease; N18.9 Chronic kidney disease, unspecified; D63.1 Anemia in chronic kidney disease; G89.29 Other chronic pain; E83.39 Other disorders of phosphorus metabolism; E83.9 Disorder of mineral metabolism, unspecified; R07.89 Other chest pain
CPT/HCPCS: 29445; 36600; 71045; 74176; 76705; 76775; 80048; 80053; 80061; 81001; 81003; 82043; 82550; 82565; 82803; 82962; 83036; 83540; 83605; 83690; 83735; 84100; 84155; 84300; 84443; 84484; 84520; 85025; 85045; 87070; 93005; 94640; 94660; 94664; 97110; 97162; 97530; J1815; J2270; J2543; J3370; J7030; J7040